=== PATIENT | female | born 1985 | race Caucasian/White ===

== ENCOUNTER 2017-07-27 09:12 | Emergency (ER) | payer OTHER, MEDICAID, SELFPAY ==
[2017-07-27] VITALS (7 sets, daily range): BP systolic 93–142; BP diastolic 59–96; PULSE 57–94; RESP 16–20; TEMP 36.7–36.8; O2SAT 94–99
--- NOTE | 2017-07-27 11:06 | DI.RAD.S_ITS ---
PROCEDURE: XR CHEST 2V INDICATIONS: 31 year-old female with cough. TECHNIQUE: 2 views of the chest were acquired. COMPARISON: [facility], , ABDOMEN ACUTE SERIES, 03/03/2017, 17:35. [facility], , CHEST 1 VIEW, 11/27/2016, 21:27. [facility], , CHEST 2 VIEW, 09/19/2016, 15:38. FINDINGS: Surgical changes and devices: Left chest wall dual chamber pacemaker is again noted. Lungs and pleura: No pleural effusions or pneumothorax. Lungs are clear. Lung volumes are decreased. Mediastinum: Mediastinal contours are normal. Heart size is normal. Bones and chest wall: No suspicious bony abnormalities. Soft tissues appear unremarkable. IMPRESSION: Decreased lung volumes, without acute cardiopulmonary disease. Dictated by: Pierce Woods M.D. on 07/27/2017 at 11:18 Approved by: Pierce Woods M.D. on 07/27/2017 at 11:18
[2017-07-27 11:47] LABS: Add Manual Diff / Slide Review NO; Basophils Percent Auto 0.4 % (0-2); Eosinophils Percent Auto 5.7 % (2-4); Hemoglobin 13.1 g/dL (12.0-16.0); Lymphocytes Percent Auto 27.4 % (25-40); Mean Corpuscular HGB Conc 34.4 % (30-36); Mean Corpuscular Hemoglobin 29.2 PG (26-34); Monocytes Percent Auto 4.8 % (3-14); Neutrophils Absolute Auto 6700 /uL (3000-5900); Neutrophils Percent Auto 61.7 % (50-75); Platelet Count 400 X10^3/uL (150-400); Red Blood Cell Count 4.47 X10^6/uL (4.0-5.2); Red Cell Distribution Width 12.9 % (11.6-14.8); White Blood Cell Count 10.9 X10^3/uL (4.5-11.0)
[2017-07-27 12:08] LABS: Troponin I < 0.012 ng/mL (0.01-0.034)
[2017-07-27 12:10] LABS: Procalcitonin < 0.05 ng/mL (<0.5)
[2017-07-27 12:19] LABS: B Type Natriuretic Peptide 49.5 (<100)
--- NOTE | 2017-07-27 12:38 | ED_ITS ---
HPI - URI/Sore Throat General Chief Complaint: Upper Respiratory Symptoms Stated Complaint: PT STATES BRONCHITIS, FEVER, CHILLS Time Seen by Provider: 07/27/17 09:40 History of Present Illness HPI Narrative: HPI 31-year-old obese female with CHF, ischemic cardiomyopathy and a pacemaker resents for evaluation of a course wet cough of 7-10 days duration with accompanying subjective fevers and chills. Notes 10 pounds weight gain over the last week. M/S/F/SocHx notable for: please see HPI; remainder reviewed with patient and in chart. ROS: Negative constitutional, eye, cardiovascular, pulmonary, GI, , MSK, skin , neurologic, psychiatric, endocrine unless noted in the HPI. Exam Gen: Pleasant, non-toxic appearing, resting comfortably. HEENT: NC, AT, PEERL, EOMI. Resp: Clear to auscultation bilaterally, normal work of breathing, no accessory muscle usage. Card: Regular rate and rhythm with no murmurs, rubs, or gallops, extremities warm and well perfused. Legs without edema. GI: Non-tender to palpation throughout all quadrants, no focal tenderness at McBurney's point, negative Justin's sign, non-distended, no rebound or guarding. : No suprapubic tenderness to palpation. MSK: No visible deformities, strength and tone without visually appreciable deficit. Skin: Normal color with no visible lesions. Neuro: AO x 3, no facial asymmetry, vision and hearing WNL. Psych: Mood and affect appropriate. Labs / Imaging: EKG: atrially paced at 61 bpm, no ST segment elevations or depressions, no LBBB. WBC 10.9, hemoglobin 13.1, troponin < 0.012, Procalcitonin < 0.05 CXR: no acute cardiopulmonary disease process. MDM Previous chart, nursing note, labs, imaging, and vitals reviewed. A: 31-year-old obese female with CHF, ischemic cardiomyopathy and a pacemaker resents for evaluation of a course wet cough of 7-10 days duration with accompanying subjective fevers and chills. DDx & Evaluation: imaging and exam without evidence of heart failure, no evidence of pneumonia by imaging, history, and labs, doubt ACS, pericarditis, myocarditis, pericardial, pleural effusion based upon the chest x-ray, EKG ( although interpretations limited to to the atrial pacing), and a negative troponin. Suspect a viral etiology for the patient's cough, this is tentative at the present time, however the patient remains well compensated and vitals are within acceptable limits. Patient is appropriate for further outpatient management as appropriate. Impression: cough. (please reference below for remainder of encounter information) Related Data Home Medications Medication Instructions Recorded Confirmed albuterol sulfate [ProAir HFA] 2 puff INHALATION Q4H PRN 07/27/17 07/27/17 beclomethasone dipropionate [Qvar] 1 puff INHALATION BID 07/27/17 07/27/17 bumetanide 1 mg PO QDAY PRN 07/27/17 07/27/17 cetirizine 10 mg PO DAILY 07/27/17 07/27/17 cholecalciferol (vitamin D3) 5,000 unit PO DAILY 07/27/17 07/27/17 [Vitamin D3] digoxin [Digitek] 125 mcg PO QDAY 07/27/17 07/27/17 diltiazem HCl 30 mg PO TID PRN 07/27/17 07/27/17 fluticasone furoate 1 spray INTRANASAL BID 07/27/17 07/27/17 lacosamide [Vimpat] 50 mg PO BID 07/27/17 07/27/17 levetiracetam 3 tab PO BID 07/27/17 07/27/17 montelukast 10 mg PO QDAY 07/27/17 07/27/17 ondansetron 4 mg PO Q6H PRN 07/27/17 07/27/17 potassium chloride 4 tab PO QDAY 07/27/17 07/27/17 sertraline 100 mg PO QDAY 07/27/17 07/27/17 torsemide 40 mg PO QDAY 07/27/17 07/27/17 Allergies Allergy/AdvReac Type Severity Reaction Status Date / Time hydrocodone [HYDROCODONE] Allergy Severe HIVES Unverified 06/29/17 12:14 adhesive tape Allergy Intermediate Verified 07/27/17 10:28 latex Allergy Intermediate Verified 07/27/17 10:27 levofloxacin [LEVOFLOXACIN] AdvReac Mild STOMACH Unverified 06/29/17 12:14 ISSUES miracle liam plant food Allergy anaphylaxis Uncoded 07/27/17 10:29 with contact MDM - URI/Sore Throat Lab Data Result diagrams: 07/27/17 11:35 Lab Results 07/27/17 07/27/17 07/27/17 Range/Units 11:35 11:35 11:35 WBC 10.9 (4.5-11.0) X10^3/uL RBC 4.47 (4.0-5.2) X10^6/uL Hgb 13.1 (12.0-16.0) g/dL Hct 38.0 (36-46) % MCV 85.0 (80-100) fL MCH 29.2 (26-34) PG MCHC 34.4 (30-36) % RDW 12.9 (11.6-14.8) % Plt Count 400 (150-400) X10^3/uL Neut % (Auto) 61.7 (50-75) % Lymph % (Auto) 27.4 (25-40) % [place] % (Auto) 4.8 (3-14) % Eos % (Auto) 5.7 H (2-4) % Baso % (Auto) 0.4 (0-2) % Neut # (Auto) 6700 H (8470-4724) /uL Troponin I < 0.012 (0.01-0.034) ng/mL B-Natriuretic Peptide 49.5 (<100) Procalcitonin < 0.05 (<0.5) ng/mL Discharge Plan Departure Prescriptions: No Action torsemide 20 mg tablet 40 mg PO QDAY RF: 0 cetirizine 10 mg Tablet 10 mg PO DAILY RF: 0 levetiracetam 500 mg tablet 3 tab PO BID RF: 0 sertraline 100 mg tablet 100 mg PO QDAY RF: 0 potassium chloride 10 mEq tablet extended release 4 tab PO QDAY RF: 0 beclomethasone dipropionate [Qvar] 80 mcg/actuation Aerosol 1 puff INHALATION BID RF: 0 bumetanide 1 mg tablet 1 mg PO QDAY PRN (Reason: edema) RF: 0 montelukast 10 mg tablet 10 mg PO QDAY RF: 0 digoxin [Digitek] 125 mcg tablet 125 mcg PO QDAY RF: 0 albuterol sulfate [ProAir HFA] 90 mcg/actuation Hfa Aerosol Inhaler 2 puff Inhalation Q4H PRN (Reason: Shortness Of Breath) RF: 0 diltiazem HCl 30 mg Tablet 30 mg PO TID PRN (Reason: Angina) RF: 0 ondansetron 4 mg tablet,disintegrating 4 mg PO Q6H PRN (Reason: Nausea) RF: 0 fluticasone furoate 27.5 mcg/actuation [place],Suspension 1 spray INTRANASAL BID RF: 0 lacosamide [Vimpat] 50 mg tablet 50 mg PO BID RF: 0 cholecalciferol (vitamin D3) [Vitamin D3] 5,000 unit Tablet 5,000 unit PO DAILY RF: 0
[2017-07-27 14:18] LABS: BUN Creatinine Ratio 22.9 (6-22); Calcium 9.1 mg/dL (8.4-10.2); Estimated Glomerular Filt Rate > 60.0 mL/min (>60); Glucose 109 mg/dL (70-100); HEMOLYSIS < 15 (0-50); Potassium 3.5 mmol/L (3.4-5.1); Sodium 141 mmol/L (137-145)
== END 2017-07-27 15:40 | disposition home or self-care (01) ==
PROVIDERS: Emergency Provider Emergency Medicine
DX: R05 Cough (principal)
CPT/HCPCS: 36591; 71046; 80048; 83880; 84145; 84484; 85025; 93005; 99283; 99285

== ENCOUNTER 2018-08-01 18:17 | Emergency (ER) | payer OTHER, MEDICAID, SELFPAY ==
[2018-08-01 18:22] VITALS: BP 151/102; PULSE 83; RESP 16; TEMP 37; O2SAT 99
[2018-08-01 19:41] LABS: INR 1.1 (0.9-1.3); Prothrombin Time 12.1 SECONDS (10.1-12.7)
[2018-08-01] MEDS: ONDANSETRON 4 MG/2 ML INJ IV (19:43)
[2018-08-01 19:44] LABS: PTT Partial Thromboplastin Tim 32 SECONDS (26.4-36.2)
[2018-08-01 19:45] LABS: Alanine Aminotransferase 26 IU/L (9-52); Albumin 4.9 g/dL (3.5-5.0); Albumin Globulin Ratio 1.3 (1.0-2.8); Alkaline Phosphatase 133 U/L (38-126); Aspartate Aminotransferase 28 IU/L (14-36); Bilirubin Total 0.7 mg/dL (0.2-1.3); Globulin 3.9 g/dL (1.7-4.1); Lipase 29 U/L (23-300); Total Protein 8.8 g/dL (6.3-8.2)
[2018-08-01 19:47] LABS: Add Manual Diff / Slide Review NO; Basophils Absolute Auto 100 /uL (0-100); Basophils Percent Auto 0.7 % (0-2); Eosinophils Absolute Auto 100 /uL (0-450); Eosinophils Percent Auto 0.5 % (2-4); Hematocrit 43.4 % (36-46); Hemoglobin 14.8 g/dL (12.0-16.0); Lymphocytes Absolute Auto 2900 /uL (1100-4500); Lymphocytes Percent Auto 20.6 % (25-40); Mean Corpuscular HGB Conc 34.1 % (30-36); Mean Corpuscular Hemoglobin 28.8 PG (26-34); Mean Corpuscular Volume 84.5 fL (80-100); Monocytes Absolute Auto 1000 /uL (0-900); Neutrophils Absolute Auto 10100 /uL (1500-7000); Neutrophils Percent Auto 71.2 % (50-75); Platelet Count 401 X10^3/uL (150-400); Red Blood Cell Count 5.14 X10^6/uL (4.0-5.2); Red Cell Distribution Width 12.9 % (11.6-14.8); White Blood Cell Count 14.2 X10^3/uL (4.5-11.0)
[2018-08-01 19:49] VITALS: BP 147/105; PULSE 68; RESP 13; O2SAT 98
[2018-08-01 20:00] VITALS: BP 130/63; PULSE 69; RESP 19; O2SAT 99
[2018-08-01 20:02] LABS: BUN Creatinine Ratio 25.7 (6-22); Blood Urea Nitrogen 18 mg/dL (7-17); Calcium 10.1 mg/dL (8.4-10.2); Carbon Dioxide 33 mmol/L (22-32); Chloride 90 mmol/L (98-107); Estimated Glomerular Filt Rate > 60.0 mL/min (>60); Glucose 121 mg/dL (70-100); HEMOLYSIS 36 (0-50); Sodium 137 mmol/L (137-145)
--- NOTE | 2018-08-01 20:17 | ED.NAVMDI ---
HPI - Nausea/Vomiting/Diarrhea General Chief complaint: Nausea/Vomiting/Diarrhea Stated complaint: LIGHT HEADNESS NAUSEA NOT PEEING MUCH Time Seen by Provider: 08/01/18 20:17 Source: patient Mode of arrival: ambulatory Limitations: no limitations History of Present Illness HPI Narrative: The patient has hypertension with cardiomyopathy and CHF. She has received a pacemaker. She has been changing doses of diuretics lately, controlling the CHF. She has had adequate urine output. She is having no chest pain. She does has dyspnea with exertion. She has no orthopnea. She has had a history of kidney infections. For the last week she has had left flank pain. She denies hematuria or dysuria. Today she developed nausea and vomiting. She has had no associated diarrhea. She has no associated fever or chills. She is feeling ill with weakness and fatigue.. She cannot give a urine sample. Related Data Home Medications Medication Instructions Recorded Confirmed albuterol sulfate [ProAir HFA] 2 puff INHALATION Q4H PRN 07/27/17 08/01/18 beclomethasone dipropionate [Qvar] 1 puff INHALATION BID 07/27/17 08/01/18 bumetanide 1 mg PO QDAY PRN 07/27/17 08/01/18 cetirizine 10 mg PO DAILY 07/27/17 08/01/18 cholecalciferol (vitamin D3) 5,000 unit PO DAILY 07/27/17 08/01/18 [Vitamin D3] digoxin [Digitek] 125 mcg PO QDAY 07/27/17 08/01/18 diltiazem HCl 30 mg PO TID PRN 07/27/17 08/01/18 fluticasone furoate 1 spray INTRANASAL BID 07/27/17 08/01/18 lacosamide [Vimpat] 150 mg PO BID 07/27/17 08/01/18 levetiracetam 3 tab PO BID 07/27/17 08/01/18 montelukast 10 mg PO QDAY 07/27/17 08/01/18 ondansetron 4 mg PO Q6H PRN 07/27/17 08/01/18 potassium chloride 4 tab PO QDAY 07/27/17 08/01/18 sertraline 150 mg PO QDAY 07/27/17 08/01/18 torsemide 40 mg PO QDAY 07/27/17 08/01/18 Allergies Allergy/AdvReac Type Severity Reaction Status Date / Time hydrocodone [HYDROCODONE] Allergy Severe HIVES Verified 08/01/18 19:50 adhesive tape Allergy Intermediate Verified 08/01/18 19:50 latex Allergy Intermediate Verified 08/01/18 19:50 levofloxacin [LEVOFLOXACIN] AdvReac Mild STOMACH Verified 08/01/18 19:50 ISSUES miracle liam plant food Allergy anaphylaxis Uncoded 07/27/17 10:29 with contact Review of Systems Review of Systems ROS Unobtainable: All systems reviewed & are unremarkable except as noted in HPI and below Constitutional Denies chills, Denies fever(s), Reports lethargy and Reports weakness ENT Ears, Nose, Mouth, and Throat: Denies neck pain and Denies sore throat Cardiovascular Denies chest pain, Denies irregular heart rhythm, Denies lightheadedness, Denies palpitations, Denies dyspnea and Denies orthopnea Respiratory Denies cough, Denies dyspnea and Denies wheezing Gastrointestinal Gastrointestinal: Denies abdominal pain, Denies change in bowel habits, Denies diarrhea, Reports nausea and Reports vomiting Genitourinary Denies hematuria, Denies dysuria, Reports flank pain, Denies urinary incontinence and Denies urinary urgency Musculoskeletal Reports back pain and Denies neck pain Integumentary/Breasts Denies erythema and Denies rash Neurologic Denies confusion and Reports weakness Psychiatric Denies anxiety, Denies confusion and Denies depression Endocrine Denies palpitations Allergic/Immunologic Denies wheezing [facility] Medical History (Updated 08/02/18 @ 00:26 by Chris Petty MD) Cardiomyopathy (Acute) Congestive heart failure (Acute) Hypertension (Acute) Pacemaker (Acute) Social History (Updated 08/01/18 @ 20:31 by Chris Petty MD) Smoking Status: Never smoker alcohol intake: never Exam Initial Vital Signs Initial Vital Signs: Vital Signs Temperature 98.6 F 08/01/18 18:22 Pulse Rate 83 08/01/18 18:22 Respiratory Rate 16 08/01/18 18:22 Blood Pressure 151/102 H 08/01/18 18:22 Pulse Oximetry 99 08/01/18 18:22 Const General: cooperative and well developed Nutritional Appearance: well nourished Orientation: alert, awake, oriented x3 and not confused [facility] Head: normocephalic and atraumatic Mouth: oral mucosae normal and moist mucous membranes Throat: tonsils normal and uvula midline Eyes General: appearance normal, both eyes and all related structures Eyelids: eyelids normal Conjunctivae: conjunctivae normal Sclera: sclerae normal Pupils: PERRL EOM: EOM intact bilaterally Neck Neck: No JVD Chest Chest: normal inspection of the chest Resp Effort & Inspection: normal respiratory effort, able to speak in complete sentences, no respiratory distress and no use of accessory muscles Auscultation: clear to auscultation bilaterally, no rales, no rhonchi and no wheezes Cardio Rate: regular rate Rhythm: regular rhythm Heart Sounds: no click, no gallops, no murmurs and no rubs Pulses: normal peripheral pulses GI Inspection: non-distended Palpation: soft, no hepatosplenomegaly, No guarding, No pulsatile mass and No tender Auscultation: normal bowel sounds Back/Spine/Pelvis Back: normal to inspection and No CVA tenderness Skin General: no rashes or lesions noted and No petechiae Neuro General: alert, oriented x3, gait normal and no focal motor deficits Speech: speech normal Extrem General: full ROM, no pedal edema, no calf tenderness and other (Normal lower extremity pulses.) Psych Appearance: well kempt Mental Status: mental status grossly normal Attitude: cooperative Thought Content: normal and suicidality Judgment: judgment good Course Course Narrative: The portion that was slowly IV hydrated, Reglan was added to Zofran to help control the nausea. At the time of discharge she is hydrated. She has urine output. She is feeling better. She still has a vague left back pain. The UA shows no evidence of hematuria or pyuria. She has anti emetic medications at home. She feels well enough to go home. Orders Ordered: ED Orders 08/01/18 18:55 EKG-12 Lead Stat 08/01/18 19:25 Complete Blood Count AUTO DIFF Stat Comprehensive Metabolic Panel Stat Digoxin Stat Lipase Stat Partial Thromboplastin Time Stat Prothrombin Time INR Stat Sodium Chloride (Normal Saline 0.9%) 1,000 mls @ 150 mls/hr IV CONT BEAR Last Admin: 08/01/18 20:44 Dose: 150 mls/hr Discontinued Medications Metoclopramide HCl (Reglan) 10 mg IV NOW ONE Stop: 08/01/18 22:15 Last Admin: 08/01/18 22:16 Dose: 10 mg Ondansetron HCl (Zofran) 4 mg IV NOW ONE Stop: 08/01/18 19:37 Last Admin: 08/01/18 19:43 Dose: 4 mg Potassium Chloride (Potassium Chloride) 40 meq PO NOW ONE Stop: 08/01/18 22:00 Last Admin: 08/01/18 22:13 Dose: 40 meq Vital Signs - 8 hr 08/01/18 18:22 08/01/18 19:49 08/01/18 20:00 Temperature 98.6 F Pulse Rate 83 68 69 Respiratory Rate 16 13 19 Blood Pressure 151/102 H Blood Pressure [Right Wrist] 147/105 H 130/63 Pulse Oximetry 99 98 99 08/01/18 21:30 08/01/18 22:50 Temperature Pulse Rate 66 68 Respiratory Rate 22 18 Blood Pressure Blood Pressure [Right Wrist] 131/95 H 126/64 Pulse Oximetry 98 96 MDM - Nausea/Vomiting/Diarrhea Lab Data Result diagrams: 08/01/18 19:25 08/01/18 19:25 Lab Results 08/01/18 08/01/18 08/01/18 Range/Units 19:25 19:25 19:25 WBC 14.2 H (4.5-11.0) X10^3/uL RBC 5.14 (4.0-5.2) X10^6/uL Hgb 14.8 (12.0-16.0) g/dL Hct 43.4 (36-46) % MCV 84.5 (80-100) fL MCH 28.8 (26-34) PG MCHC 34.1 (30-36) % RDW 12.9 (11.6-14.8) % Plt Count 401 H (150-400) X10^3/uL Neut % (Auto) 71.2 (50-75) % Lymph % (Auto) 20.6 L (25-40) % [facility] % (Auto) 7.0 (3-14) % Eos % (Auto) 0.5 L (2-4) % Baso % (Auto) 0.7 (0-2) % Neut # (Auto) 72153 H (9034-1329) /uL Lymph # (Auto) 2900 (1104-9921) /uL [facility] # (Auto) 1000 H (0-900) /uL Eos # (Auto) 100 (0-450) /uL Baso # (Auto) 100 (0-100) /uL PT 12.1 (10.1-12.7) SECONDS INR 1.1 (0.9-1.3) APTT 32 (26.4-36.2) SECONDS Sodium 137 (137-145) mmol/L Potassium 3.0 L (3.4-5.1) mmol/L Chloride 90 L (98-107) mmol/L Carbon Dioxide 33 H (22-32) mmol/L BUN 18 H (7-17) mg/dL Creatinine 0.70 (0.52-1.04) mg/dL Estimated GFR > 60.0 (>60) mL/min BUN/Creatinine Ratio 25.7 H (6-22) Glucose 121 H (70-100) mg/dL Calcium 10.1 (8.4-10.2) mg/dL Total Bilirubin 0.7 (0.2-1.3) mg/dL AST 28 (14-36) IU/L ALT 26 (9-52) IU/L Alkaline Phosphatase 133 H (38-126) U/L Total Protein 8.8 H (6.3-8.2) g/dL Albumin 4.9 (3.5-5.0) g/dL Globulin 3.9 (1.7-4.1) g/dL Albumin/Globulin Ratio 1.3 (1.0-2.8) Lipase 29 (23-300) U/L Digoxin (0.8-2.0) ng/mL 08/01/18 Range/Units 19:25 WBC (4.5-11.0) X10^3/uL RBC (4.0-5.2) X10^6/uL Hgb (12.0-16.0) g/dL Hct (36-46) % MCV (80-100) fL MCH (26-34) PG MCHC (30-36) % RDW (11.6-14.8) % Plt Count (150-400) X10^3/uL Neut % (Auto) (50-75) % Lymph % (Auto) (25-40) % [facility] % (Auto) (3-14) % Eos % (Auto) (2-4) % Baso % (Auto) (0-2) % Neut # (Auto) (6931-1449) /uL Lymph # (Auto) (1200-2122) /uL [facility] # (Auto) (0-900) /uL Eos # (Auto) (0-450) /uL Baso # (Auto) (0-100) /uL PT (10.1-12.7) SECONDS INR (0.9-1.3) APTT (26.4-36.2) SECONDS Sodium (137-145) mmol/L Potassium (3.4-5.1) mmol/L Chloride (98-107) mmol/L Carbon Dioxide (22-32) mmol/L BUN (7-17) mg/dL Creatinine (0.52-1.04) mg/dL Estimated GFR (>60) mL/min BUN/Creatinine Ratio (6-22) Glucose (70-100) mg/dL Calcium (8.4-10.2) mg/dL Total Bilirubin (0.2-1.3) mg/dL AST (14-36) IU/L ALT (9-52) IU/L Alkaline Phosphatase (38-126) U/L Total Protein (6.3-8.2) g/dL Albumin (3.5-5.0) g/dL Globulin (1.7-4.1) g/dL Albumin/Globulin Ratio (1.0-2.8) Lipase (23-300) U/L Digoxin 0.4 L (0.8-2.0) ng/mL Point of Care Testing Test Results Negative Urine Dip Bedside Urine Glucose Negative Bedside Urine Bilirubin - Negative Bedside Urine Ketone - Negative Urine Specific [place] 1.025 Bedside Urine Occult Blood +/- Bedside Urine pH 5.5 Bedside Urine Protein +/- 15 Bedside Urine Urobilinogen +/- 1mg Bedside Urine Nitrite - Negative Bedside Urine Leukocytes +/- 15 Esterase ECG Data Attestation: I personally reviewed and interpreted this ECG as follows: (Normal sinus rhythm rate 71 beats per minute. Normal intervals. Heart voltage criteria for LVH. Minimal ST depression, nonspecific ST T wave changes. No ectopy. No acute findings.) Discharge Plan Departure Patient Disposition: Home Clinical Impression: Abdominal pain with vomiting Instructions: DI for Viral Gastroenteritis -- Adult Activity Restrictions/Additional Instructions: I suspect her symptoms are related to a viral infection. I would expect the symptoms to clear within the next day or so. Be sure you drinking plenty of fluids and stay well hydrated. Usual medications as prescribed Return the ER for persistent vomiting, increasing pain or fever. Prescriptions: No Action torsemide 20 mg tablet 40 mg PO QDAY RF: 0 cetirizine 10 mg Tablet 10 mg PO DAILY RF: 0 levetiracetam 500 mg tablet 3 tab PO BID RF: 0 sertraline 100 mg tablet 150 mg PO QDAY RF: 0 potassium chloride 10 mEq tablet extended release 4 tab PO QDAY RF: 0 Qvar 80 mcg/actuation Aerosol 1 puff INHALATION BID RF: 0 bumetanide 1 mg tablet 1 mg PO QDAY PRN (Reason: edema) RF: 0 montelukast 10 mg tablet 10 mg PO QDAY RF: 0 digoxin [Digitek] 125 mcg tablet 125 mcg PO QDAY RF: 0 albuterol sulfate [ProAir HFA] 90 mcg/actuation Hfa Aerosol Inhaler 2 puff Inhalation Q4H PRN (Reason: Shortness Of Breath) RF: 0 diltiazem HCl 30 mg Tablet 30 mg PO TID PRN (Reason: Angina) RF: 0 ondansetron 4 mg tablet,disintegrating 4 mg PO Q6H PRN (Reason: Nausea) RF: 0 fluticasone furoate 27.5 mcg/actuation [place],Suspension 1 spray INTRANASAL BID RF: 0 Vimpat 50 mg tablet 150 mg PO BID RF: 0 cholecalciferol (vitamin D3) [Vitamin D3] 5,000 unit Tablet 5,000 unit PO DAILY RF: 0
[2018-08-01 20:22] LABS: Digoxin 0.4 ng/mL (0.8-2.0)
[2018-08-01] MEDS: SODIUM CHLORIDE 0.9% 1,000 ML 150 ML IV (20:44)
[2018-08-01 21:30] VITALS: BP 131/95; PULSE 66; RESP 22; O2SAT 98
[2018-08-01] MEDS: POTASSIUM CHLORIDE 20 MEQ/15 ML UDC 40 MEQ PO (22:13)
[2018-08-01] MEDS: METOCLOPRAMIDE 10 MG/2 ML INJ IV (22:16)
[2018-08-01 22:50] VITALS: BP 126/64; PULSE 68; RESP 18; O2SAT 96
[2018-08-02 00:35] VITALS: BP 122/66; PULSE 84; RESP 14; O2SAT 99
== END 2018-08-02 00:35 | disposition home or self-care (01) ==
PROVIDERS: Emergency Provider Emergency Medicine
DX: R42 Dizziness and giddiness (principal); R11.2 Nausea with vomiting, unspecified; R10.84 Generalized abdominal pain; R53.1 Weakness; Z95.0 Presence of cardiac pacemaker
CPT/HCPCS: 36591; 80053; 80162; 81003; 81025; 83690; 85025; 85610; 85730; 93005; 93010; 96361; 96374; 96375; 99284; J2405; J2765

== ENCOUNTER 2018-09-04 15:09 | Observation (INO) | payer OTHER, MEDICAID, SELFPAY ==
[2018-09-04] VITALS (9 sets, daily range): BP systolic 114–155; BP diastolic 57–140; PULSE 62–85; RESP 14–24; TEMP 36.7–36.8; O2SAT 95–100; BMI 48.2
--- NOTE | 2018-09-04 15:21 | DI.RAD.S_ITS ---
PROCEDURE: XR CHEST 2V INDICATIONS: shortness of breath TECHNIQUE: 2 views of the chest were acquired. [facility] 8[facility]. FINDINGS: Surgical changes and devices: Pacemaker. Lungs and pleura: Lungs are clear. No pleural effusions or pneumothorax. Mediastinum: Mediastinal contours are normal. Heart size is normal. Bones and chest wall: No suspicious bony abnormalities. Soft tissues appear unremarkable. IMPRESSION: No acute pulmonary process. Dictated by: Steffany Amador M.D. on 09/04/2018 at 15:53 Approved by: Steffany Amador M.D. on 09/04/2018 at 15:54
--- NOTE | 2018-09-04 15:38 | ED.SOB ---
HPI - SOB/Dyspnea General Chief Complaint: Shortness of Breath/Dyspnea Stated Complaint: WATER RETENTION SOB Time Seen by Provider: 09/04/18 15:25 Source: patient Mode of arrival: ambulatory Limitations: no limitations History of Present Illness 33-year-old female who arrives stating she has got a diagnosis of diastolic heart failure. She also has a pacemaker in place. She is not currently paced. She states that over the past month she has had a 30 lb weight gain. Last Tuesday she saw her retrofit installer Dr Aponte with the [facility] in [place] who increased her Toeawmide 20 mg once a day to 20 mg 2 times a day. She also had her Bumex increased from 1 mg a day to 1 mg 2 times a day. She states that she continues to have lower extremity swelling. She states she cannot lay flat because she become short of breath. She also states she cannot walk far distances because of the shortness of breath. She states that she has never had a cardiac catheterization. Has an echo scheduled for the beginning of next month. Related Data Home Medications Medication Instructions Recorded Confirmed albuterol sulfate [ProAir HFA] 2 puff INHALATION Q4H PRN 07/27/17 09/04/18 bumetanide 1 mg PO DAILY 07/27/17 09/04/18 cetirizine 10 mg PO DAILY 07/27/17 09/04/18 cholecalciferol (vitamin D3) 5,000 unit PO DAILY 07/27/17 09/04/18 [Vitamin D3] digoxin [Digitek] 125 mcg PO DAILY 07/27/17 09/04/18 fluticasone furoate 1 - 2 spray INTRANASAL BID 07/27/17 09/04/18 levetiracetam 1,000 mg PO BID 07/27/17 09/04/18 montelukast 10 mg PO DAILY 07/27/17 09/04/18 ondansetron 4 mg PO Q8H PRN 07/27/17 09/04/18 sertraline 150 mg PO DAILY 07/27/17 09/04/18 torsemide 40 mg PO DAILY 07/27/17 09/04/18 beclomethasone dipropionate [Qvar 1 puff INHALATION BID 09/04/18 09/04/18 RediHaler] chlorthalidone 12.5 mg PO DAILY 09/04/18 09/04/18 diltiazem HCl 60 mg PO TID PRN 09/04/18 09/04/18 lacosamide [Vimpat] 200 mg PO BID 09/04/18 09/04/18 potassium chloride 40 meq PO DAILY 09/04/18 09/04/18 Allergies Allergy/AdvReac Type Severity Reaction Status Date / Time hydrocodone [HYDROCODONE] Allergy Severe HIVES Verified 09/04/18 15:18 adhesive tape Allergy Intermediate Verified 09/04/18 15:18 latex Allergy Intermediate Verified 09/04/18 15:18 levofloxacin [LEVOFLOXACIN] AdvReac Mild STOMACH Verified 09/04/18 15:18 ISSUES miracle liam plant food Allergy anaphylaxis Uncoded 09/04/18 15:18 with contact Review of Systems Constitutional Denies fever(s) and Denies headache(s) ENT Ears, Nose, Mouth, and Throat: Denies headache(s) Cardiovascular Denies chest pain, Reports pedal edema, Reports edema, Denies palpitations, Reports dyspnea and Reports dyspnea on exertion Respiratory Reports dyspnea and Reports dyspnea on exertion Gastrointestinal Gastrointestinal: Denies abdominal pain, Denies nausea and Denies vomiting Musculoskeletal Denies myalgias and Denies arthralgias Integumentary/Breasts Denies rash Neurologic Denies behavioral changes and Denies headache(s) Psychiatric Denies behavioral changes Endocrine Denies palpitations Hematologic/Lymphatic Denies easy bleeding and Denies easy bruising [facility] Medical History Congestive heart failure (Acute) Cardiomyopathy (Acute) Hypertension (Acute) Pacemaker (Acute) Social History Smoking Status: Never smoker alcohol intake: never Exam Initial Vital Signs Initial Vital Signs: Vital Signs Temperature 98.0 F 09/04/18 15:18 Pulse Rate 85 09/04/18 15:18 Respiratory Rate 20 09/04/18 15:18 Blood Pressure 128/71 09/04/18 15:18 Pulse Oximetry 100 09/04/18 15:18 Const General: comfortable and well developed Orientation: alert and awake HENMT Head: normal to inspection and normocephalic Resp Effort & Inspection: normal respiratory effort Auscultation: clear to auscultation bilaterally Cardio Rate: regular rate Rhythm: regular rhythm Pulses: radial pulses present GI Inspection: non-distended Palpation: soft Skin Lesions: no lesions Rashes: no rashes Neuro General: alert and awake Cognition: normal cognition Speech: speech normal Extrem General: edema Psych Appearance: grossly normal and well kempt Course Orders Ordered: ED Orders 09/04/18 15:21 XR chest 2V Stat EKG-12 Lead Stat 09/04/18 15:31 B Type Natriuretic Peptide Stat Complete Blood Count AUTO DIFF Stat Comprehensive Metabolic Panel Stat Lactate (Lactic Acid) Stat Magnesium Stat Procalcitonin Stat Troponin I Stat Potassium Chloride 40 meq/ (Sodium Chloride) 520 mls @ 130 mls/hr IV NOW ONE Stop: 09/04/18 22:13 Discontinued Medications Furosemide (Lasix) 60 mg IV NOW ONE Stop: 09/04/18 15:39 Last Admin: 09/04/18 15:54 Dose: 60 mg Vital Signs - 8 hr 09/04/18 15:18 09/04/18 15:33 09/04/18 16:01 Temperature 98.0 F Pulse Rate 85 70 69 Respiratory Rate 20 24 14 Blood Pressure 128/71 Blood Pressure [Left Arm] 144/57 H 114/57 L Blood Pressure [Left Wrist] Pulse Oximetry 100 100 100 09/04/18 16:39 09/04/18 17:21 09/04/18 17:30 Temperature Pulse Rate 74 66 Respiratory Rate 21 17 21 Blood Pressure Blood Pressure [Left Arm] Blood Pressure [Left Wrist] 119/65 134/91 H 134/91 H Pulse Oximetry 100 95 100 09/04/18 18:15 Temperature Pulse Rate 69 Respiratory Rate 21 Blood Pressure Blood Pressure [Left Arm] Blood Pressure [Left Wrist] 155/140 H Pulse Oximetry 100 MDM - SOB/Dyspnea Lab Data Attestation: I reviewed the patient's lab results. Result diagrams: 09/04/18 15:31 09/04/18 15:31 Lab Results 09/04/18 09/04/18 09/04/18 Range/Units 15:31 15:31 15:31 WBC 11.1 H (4.5-11.0) X10^3/uL RBC 4.30 (4.0-5.2) X10^6/uL Hgb 12.3 (12.0-16.0) g/dL Hct 36.7 (36-46) % MCV 85.4 (80-100) fL MCH 28.5 (26-34) PG MCHC 33.4 (30-36) % RDW 13.0 (11.6-14.8) % Plt Count 393 (150-400) X10^3/uL Neut % (Auto) 66.7 (50-75) % Lymph % (Auto) 24.0 L (25-40) % Cobb % (Auto) 6.9 (3-14) % Eos % (Auto) 2.0 (2-4) % Baso % (Auto) 0.4 (0-2) % Neut # (Auto) 7400 H (9785-6719) /uL Lymph # (Auto) 2700 (5678-9682) /uL Cobb # (Auto) 800 (0-900) /uL Eos # (Auto) 200 (0-450) /uL Baso # (Auto) 0 (0-100) /uL Sodium 141 (137-145) mmol/L Potassium 3.0 L (3.4-5.1) mmol/L Chloride 103 (98-107) mmol/L Carbon Dioxide 28 (22-32) mmol/L BUN 17 (7-17) mg/dL Creatinine 0.70 (0.52-1.04) mg/dL Estimated GFR > 60.0 (>60) mL/min BUN/Creatinine Ratio 24.3 H (6-22) Glucose 104 H (70-100) mg/dL Lactate 1.5 (0.7-2.1) mmol/L Calcium 9.4 (8.4-10.2) mg/dL Total Bilirubin 0.5 (0.2-1.3) mg/dL AST 22 (14-36) IU/L ALT 26 (9-52) IU/L Alkaline Phosphatase 108 (38-126) U/L Troponin I (0.01-0.034) ng/mL B-Natriuretic Peptide (<100) Total Protein 7.3 (6.3-8.2) g/dL Albumin 4.2 (3.5-5.0) g/dL Globulin 3.1 (1.7-4.1) g/dL Albumin/Globulin Ratio 1.4 (1.0-2.8) 09/04/18 09/04/18 Range/Units 15:31 15:31 WBC (4.5-11.0) X10^3/uL RBC (4.0-5.2) X10^6/uL Hgb (12.0-16.0) g/dL Hct (36-46) % MCV (80-100) fL MCH (26-34) PG MCHC (30-36) % RDW (11.6-14.8) % Plt Count (150-400) X10^3/uL Neut % (Auto) (50-75) % Lymph % (Auto) (25-40) % Cobb % (Auto) (3-14) % Eos % (Auto) (2-4) % Baso % (Auto) (0-2) % Neut # (Auto) (8593-1915) /uL Lymph # (Auto) (0189-4181) /uL Cobb # (Auto) (0-900) /uL Eos # (Auto) (0-450) /uL Baso # (Auto) (0-100) /uL Sodium (137-145) mmol/L Potassium (3.4-5.1) mmol/L Chloride (98-107) mmol/L Carbon Dioxide (22-32) mmol/L BUN (7-17) mg/dL Creatinine (0.52-1.04) mg/dL Estimated GFR (>60) mL/min BUN/Creatinine Ratio (6-22) Glucose (70-100) mg/dL Lactate (0.7-2.1) mmol/L Calcium (8.4-10.2) mg/dL Total Bilirubin (0.2-1.3) mg/dL AST (14-36) IU/L ALT (9-52) IU/L Alkaline Phosphatase (38-126) U/L Troponin I < 0.012 (0.01-0.034) ng/mL B-Natriuretic Peptide 145 H (<100) Total Protein (6.3-8.2) g/dL Albumin (3.5-5.0) g/dL Globulin (1.7-4.1) g/dL Albumin/Globulin Ratio (1.0-2.8) Imaging Data Chest x-ray: Radiologist's impression: [address] [address] XRay Report Signed Patient: Little Aparicio [facility]#: [id number] : 1985Acct:[id number] Age/Sex: 33 / FDate of Service: 09/04/18 Loc: ED Accession Number: [id number] Procedure: XR chest 2V Ordering Provider: Ilya Menendez D.O. PROCEDURE: XR CHEST 2V INDICATIONS: shortness of breath TECHNIQUE: 2 views of the chest were acquired. COMPARISON: [facility], , XR CHEST 2V, 07/27/2017, 10:50. [facility], CR, CHEST 2VW, 08/01/2017, 8:53 AM. FINDINGS: Surgical changes and devices: Pacemaker. Lungs and pleura: Lungs are clear. No pleural effusions or pneumothorax. Mediastinum: Mediastinal contours are normal. Heart size is normal. Bones and chest wall: No suspicious bony abnormalities. Soft tissues appear unremarkable. IMPRESSION: No acute pulmonary process. Dictated by: Steffany Amador M.D. on 09/04/2018 at 15:53 Approved by: Steffany Amador M.D. on 09/04/2018 at 15:54 ECG Data Attestation: I personally reviewed and interpreted this ECG as follows: Prior ECG tracings: not available for review Interpretation: Sinus rhythm First degree AV block Ventricular rate 83 P.r.n. oval to 112 milliseconds Normal axis Normal QRS Normal QTC No ST T wave changes MDM Narrative Medical decision making narrative: Patient is tachypneic however not hypoxic. She does have lower extremity swelling. I did discuss the case with [facility] cardiology who stated that her last echocardiogram was in 2017. And at that time she had a normal ejection fraction. He recommended admitting the patient for IV diuresis. I did discuss the case with Dr. Gayle with Internal Medicine who will admit the patient for further evaluation and treatment. Discussed admission with the patient. She expressed understanding and agreement plan. Some labs were pending at time of admission. These were ordered per recommendation of the admitting provider. Patient also received Lasix here in the ER. Potassium is also started here in the emergency department. Discharge Plan Departure Patient Disposition: Admitted As Inpatient Clinical Impression: Breath shortness CHF (congestive heart failure) Qualifiers: Heart failure type: unspecified Heart failure chronicity: unspecified Qualified Code(s): I50.9 - Heart failure, unspecified Fluid overload Qualifiers: Hypervolemia type: unspecified Qualified Code(s): E87.70 - Fluid overload, unspecified Admit Date/Time: 09/04/18 18:22 Admit Provider: Lynnette Gayle
[2018-09-04 15:45] LABS: Add Manual Diff / Slide Review NO; Basophils Absolute Auto 0 /uL (0-100); Basophils Percent Auto 0.4 % (0-2); Eosinophils Absolute Auto 200 /uL (0-450); Hematocrit 36.7 % (36-46); Hemoglobin 12.3 g/dL (12.0-16.0); Lymphocytes Absolute Auto 2700 /uL (1100-4500); Mean Corpuscular HGB Conc 33.4 % (30-36); Mean Corpuscular Hemoglobin 28.5 PG (26-34); Mean Corpuscular Volume 85.4 fL (80-100); Monocytes Absolute Auto 800 /uL (0-900); Monocytes Percent Auto 6.9 % (3-14); Neutrophils Absolute Auto 7400 /uL (1500-7000); Neutrophils Percent Auto 66.7 % (50-75); Platelet Count 393 X10^3/uL (150-400); White Blood Cell Count 11.1 X10^3/uL (4.5-11.0)
[2018-09-04] MEDS: FUROSEMIDE 100 MG/10 ML VIAL 60 MG IV (15:54)
[2018-09-04 15:57] LABS: Lactate (Lactic Acid) 1.5 mmol/L (0.7-2.1)
[2018-09-04 15:58] LABS: Alanine Aminotransferase 26 IU/L (9-52); Albumin 4.2 g/dL (3.5-5.0); Albumin Globulin Ratio 1.4 (1.0-2.8); Alkaline Phosphatase 108 U/L (38-126); Aspartate Aminotransferase 22 IU/L (14-36); BUN Creatinine Ratio 24.3 (6-22); Bilirubin Total 0.5 mg/dL (0.2-1.3); Blood Urea Nitrogen 17 mg/dL (7-17); Calcium 9.4 mg/dL (8.4-10.2); Carbon Dioxide 28 mmol/L (22-32); Chloride 103 mmol/L (98-107); Estimated Glomerular Filt Rate > 60.0 mL/min (>60); Globulin 3.1 g/dL (1.7-4.1); Glucose 104 mg/dL (70-100); HEMOLYSIS < 15 (0-50); Sodium 141 mmol/L (137-145); Total Protein 7.3 g/dL (6.3-8.2)
[2018-09-04 18:08] LABS: Troponin I < 0.012 ng/mL (0.01-0.034)
[2018-09-04 18:16] LABS: B Type Natriuretic Peptide 145 (<100)
[2018-09-04 18:53] LABS: Magnesium 2.1 mg/dL (1.6-2.3)
[2018-09-04 19:19] LABS: Procalcitonin < 0.05 ng/mL (<0.5)
[2018-09-04] MEDS: POTASSIUM CHLORIDE 40 MEQ in SODIUM CHLORIDE 0.9% 500 ML 130 ML IV (19:24)
--- NOTE | 2018-09-04 22:30 | PC.NURSE ---
Admit note: Little admitted to acute care room 217, she is awake, oriented x3 and to situation. She reports flu-like symptoms for the last month and having problems with nausea/vomiting at home. Reports lack of appetite, recent weight loss but then in the last few days significant weight gain. She is admitted for SOB/CHF. She reports SOB better, no SOB observed, denies chest pain. RA oxygen 100% Voided x 1 in BR toilet. Telemetry rhythm is sinus beth/sinus, with HR 58-68 bpm. Other vitals stable. She reports history of seizure disorder, stating last seizure was a week & a half ago. Seizure pads placed on rails for safety. Waiting for hospitalist to see patient, Annabel BLANCHARD notified that patient still needs to take PM doses of seizure meds Levatiracetum & Vimpat tonight, as well as her allergy meds. Copy of med list in chart. sheet metal roofer Sophie said we do not have Vimpat in pharmacy. I notified Little and she called her Dad who is bringing the medication here tonight. Fall precautions in place. Patient told me she lives with her parents & her 11 year old child, social service consult entered in chart.
--- NOTE | 2018-09-04 23:46 | P.HP_ITS ---
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 Follows w/ the following physicians: Dr. Aponte and Dr Butt for cardiology in [place]. Dr. Schuyler Zimmerman for epilepsy at [facility] [place]. Dr. Anna Hinkle is her PCP. Patient presented to the ED on 09/04/2018 out of concern for fluid retention. Symptoms initially noted 1 week ago by report. Associated symptoms include worsening peripheral and abdominal edema, orthopnea, PND, exertional dyspnea, nonproductive cough. Reports increase from baseline weight of 307# to 332# on day of admission. Able to ambulate approximately 20 ft before needing to rest. Additional symptoms include intermittent fevers (as high as 102 range) and occasional chills. Patient is known to have recurrent nephrolithiasis. She has had 5 isolated episodes in this year alone and total of 19 throughout her lifetime by report. She always was able to pass stones on her own and has not required surgical intervention. Patient reports a 3 for week history of intermittent chills and fever as high as 102F. Known to have h/o recurrent UTIs and pyelonephritis. Reports worsening fatigue, malaise, and myalgia. Reports experiencing more frequent palpitations. No known thyroid disorders. Exper iencing mild substernal/epigastric discomfort, which in notes to have pressure- like quality. There is no radiation to the back, extremities, neck, or jaw. Dizziness and unsteady gait with position change. Denies syncopal events. No prior history of PE or DVT. Patient is not on hormone therapy. Her lifestyle and degree obesity limits her mobility. Prior history of CATARINO, which noted to have resolved with tonsillectomy. She has a pending sleep study scheduled. Present time does not wear a CPAP. Patient is known to have underlying asthma, which has been well controlled. Denies increased need for inhalers. Denies being around ill contacts. Patient was seen by her answerer, Dr. Fadi, in the past week. Recommendation was made to increase the dose of torsemide and bumetanide to aid with diuresis. Patient reports making recommended changes, however does not feel there is improvement in her overall volume status. She does not feel that she is responding well to the diuretics. No prior history of a cardiac catheterization or valvular heart disease. Patient does have a fairly significant risk for PE or DVT, in lieu of underlying morbid obesity, decreased mobility, and underlying cardiac problems. Patient has no prior history of cerebrovascular events. However she does have a history of seizures and associated Brent's paralysis by report. Patient History Medical History (Updated 09/05/18 @ 01:15 by LO Bustillos) Congestive heart failure (Chronic) Epilepsy (Chronic) IBS (irritable bowel syndrome) (Chronic) Morbid obesity (Chronic) Nephrolithiasis (Chronic) PCOS (polycystic ovarian syndrome) (Chronic) Tachy-beth syndrome (Chronic) Cardiomyopathy (Chronic) Hypertension (Chronic) Surgical History Pacemaker (Chronic) Family History (Updated 09/05/18 @ 01:14 by LO Bustillos) Father Nephrolithiasis Social History household members: family and children Smoking Status: Never smoker alcohol intake: never Family & Social History Social History: household members family,children Prior Living Arrangements House. Patient lives with her parents and daughter. She does not drive due to history of epilepsy. Safety & Behavioral: Feels Safe in Current Yes Environment Been Physically Hurt or No Threatened By a Person Suicidal Ideation Description None Tobacco & Substance use: Smoking Status Never smoker alcohol intake never alcohol intake frequency 0-2 drinks per day Substance Use Type does not use Meds Home Medications Medication Instructions Recorded Confirmed Type albuterol sulfate [ProAir HFA] 2 puff INHALATION Q4H PRN 07/27/17 09/04/18 History bumetanide 1 mg PO DAILY 07/27/17 09/04/18 History cetirizine 10 mg PO DAILY 07/27/17 09/04/18 History cholecalciferol (vitamin D3) 5,000 unit PO DAILY 07/27/17 09/04/18 History [Vitamin D3] digoxin [Digitek] 125 mcg PO DAILY 07/27/17 09/04/18 History fluticasone furoate 1 - 2 spray INTRANASAL BID 07/27/17 09/04/18 History levetiracetam 1,000 mg PO BID 07/27/17 09/04/18 History montelukast 10 mg PO DAILY 07/27/17 09/04/18 History ondansetron 4 mg PO Q8H PRN 07/27/17 09/04/18 History sertraline 150 mg PO DAILY 07/27/17 09/04/18 History torsemide 40 mg PO DAILY 07/27/17 09/04/18 History beclomethasone dipropionate [Qvar 1 puff INHALATION BID 09/04/18 09/04/18 History RediHaler] chlorthalidone 12.5 mg PO DAILY 09/04/18 09/04/18 History diltiazem HCl 60 mg PO TID PRN 09/04/18 09/04/18 History lacosamide [Vimpat] 200 mg PO BID 09/04/18 09/04/18 History potassium chloride 40 meq PO DAILY 09/04/18 09/04/18 History Allergies Allergy/AdvReac Type Severity Reaction Status Date / Time hydrocodone [HYDROCODONE] Allergy Severe HIVES Verified 09/04/18 15:18 adhesive tape Allergy Intermediate Verified 09/04/18 15:18 latex Allergy Intermediate Verified 09/04/18 15:18 levofloxacin [LEVOFLOXACIN] AdvReac Mild STOMACH Verified 09/04/18 15:18 ISSUES miracle liam plant food Allergy anaphylaxis Uncoded 09/04/18 15:18 with contact Review of Systems Review of Systems All systems reviewed & are unremarkable except as noted in HPI and below Exam Vital Signs (past 8 hours): - 09/04/18 16:01 09/04/18 16:39 09/04/18 17:21 Temperature Pulse Rate 69 74 Respiratory Rate 14 21 17 Blood Pressure Blood Pressure [Left Arm] 114/57 L Blood Pressure [Left Wrist] 119/65 134/91 H Pulse Oximetry 100 100 95 09/04/18 17:30 09/04/18 18:15 09/04/18 19:49 Temperature 98.2 F Pulse Rate 66 69 62 Respiratory Rate 21 21 17 Blood Pressure 134/79 Blood Pressure [Left Arm] Blood Pressure [Left Wrist] 134/91 H 155/140 H Pulse Oximetry 100 100 99 09/04/18 23:05 Temperature 98.2 F Pulse Rate 62 Respiratory Rate 18 Blood Pressure 121/61 Blood Pressure [Left Arm] Blood Pressure [Left Wrist] Pulse Oximetry 99 Oxygen Delivery Method Room Air Oxygen Flow Rate 0 Narrative Exam Narrative: Constitutional: NAD, morbidly obese habitus BMI 50.7. GCS 15 Neurologic: AOx3, no focal neurological deficits Head: NC, AT Eyes: PERRL, EOMI, Ears: external ears normal Nose: external nose normal, no rhinorrhea or epistaxis Throat: MMM, oropharynx w/o exudate Neck: no masses, lymphadenopathy, or JVD Chest / Respiratory: equal chest rise, unlabored respiratory effort, no tachypnea Crackles b/l Heart / CV: S1S2, no murmur Abdomen / GI: central obesity, NT, ND, + BS, difficult to palpate for organomegaly in lieu of large abdominal contour, abdominal edema noted : no suprapubic tenderness, no CVA Peripheral / Vascular: warm to touch, DP and PT pulses palpable, no edema Musc: full ROM of upper and lower extremities, adequate muscle tone and bulk Skin: no ecchymosis or suspicious lesions / ulcers, no rashes noted Objective Labs Result Diagrams: 09/04/18 15:31 09/04/18 15:31 Labs: Laboratory Results - last 24 hr 09/04/18 09/04/18 09/04/18 15:31 15:31 15:31 WBC 11.1 H RBC 4.30 Hgb 12.3 Hct 36.7 MCV 85.4 MCH 28.5 MCHC 33.4 RDW 13.0 Plt Count 393 Neut % (Auto) 66.7 Lymph % (Auto) 24.0 L Kerr % (Auto) 6.9 Eos % (Auto) 2.0 Baso % (Auto) 0.4 Neut # (Auto) 7400 H Lymph # (Auto) 2700 Kerr # (Auto) 800 Eos # (Auto) 200 Baso # (Auto) 0 Sodium 141 Potassium 3.0 L Chloride 103 Carbon Dioxide 28 BUN 17 Creatinine 0.70 Estimated GFR > 60.0 BUN/Creatinine Ratio 24.3 H Glucose 104 H Lactate 1.5 Calcium 9.4 Magnesium Total Bilirubin 0.5 AST 22 ALT 26 Alkaline Phosphatase 108 Troponin I B-Natriuretic Peptide Total Protein 7.3 Albumin 4.2 Globulin 3.1 Albumin/Globulin Ratio 1.4 Procalcitonin 09/04/18 09/04/18 09/04/18 15:31 15:31 15:31 WBC RBC Hgb Hct MCV MCH MCHC RDW Plt Count Neut % (Auto) Lymph % (Auto) Kerr % (Auto) Eos % (Auto) Baso % (Auto) Neut # (Auto) Lymph # (Auto) Kerr # (Auto) Eos # (Auto) Baso # (Auto) Sodium Potassium Chloride Carbon Dioxide BUN Creatinine Estimated GFR BUN/Creatinine Ratio Glucose Lactate Calcium Magnesium 2.1 Total Bilirubin AST ALT Alkaline Phosphatase Troponin I < 0.012 B-Natriuretic Peptide 145 H Total Protein Albumin Globulin Albumin/Globulin Ratio Procalcitonin 09/04/18 15:31 WBC RBC Hgb Hct MCV MCH MCHC RDW Plt Count Neut % (Auto) Lymph % (Auto) Kerr % (Auto) Eos % (Auto) Baso % (Auto) Neut # (Auto) Lymph # (Auto) Kerr # (Auto) Eos # (Auto) Baso # (Auto) Sodium Potassium Chloride Carbon Dioxide BUN Creatinine Estimated GFR BUN/Creatinine Ratio Glucose Lactate Calcium Magnesium Total Bilirubin AST ALT Alkaline Phosphatase Troponin I B-Natriuretic Peptide Total Protein Albumin Globulin Albumin/Globulin Ratio Procalcitonin < 0.05 Assessment & Plan Assessment & Plan narrative: Hypervolemia, acute, present on admission, active - Suspected to be in the setting of decompensated heart failure - See 'HF plan of care - AM labs, monitor electrolytes and renal function Diastolic heart failure, acute on chronic, present on admission, active - Echocardiogram (last in 2014) - Inadequate diuretic response by report, 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 Strict I/O monitoring - Start on lasix gtt at 5 mg/hr and metolazone 2.5 mg for diuresis Tachy-beth syndrome (s/p dual lead PPM implant), chronic condition, present on admission, active - patient would benefit from pacemaker interrogation Exertional dyspnea, acute, present on admission, active - Suspected to be in the setting of decompensated heart failure / cardiomyopathy - DDx: Cardiac arrhythmia, failed pacemaker, thyroid abnormalities, or PE - Add D-dimer to lab if elevated consider CT a of chest to rule out PE Hypokalemia, acute, present on admission, active - replete potassium per e-lyte protocol CATARINO, chronic condition, present on admission, active - patient needs an outpatient sleep study, at high risk for obesity hypoventilation syndrome - continuous pulse ox, nurses to notify if patient is having nocturnal hypoxia Morbid obesity, BMI 50.7, chronic condition, present on admission, active - in the setting of metabolic syndrome and associated hormonal dysregulation - patient would benefit from diet, exercise, and lifestyle modifications; given degree obesity, investigating option of bariatric surgery would not be unreasonable Recurrent nephrolithiasis, chronic condition, present on admission, stable - the cause of recurrent nephrolithiasis is not entirely clear, notes prior history calcium oxalate and uric acid stones, these likely to be related to patient's lifestyle and dietary choices - she would benefit from HCTZ, potassium citrate, and possibly allopurinol to help decrease stone formation, given need for follow-up this will need to be investigated on outpatient basis and managed by PCP or Urology - check UA, if positive signs of an infection then will order blood cultures (not indicated at this time); patient is not having overt signs of SIRS /sepsis and has been afebrile VTE prophylaxis: Heparin SQ Code status discussed, patient wishes to be full code. Designates her parents as proxy in the event she is unable to make healthcare decisions. Home medications reviewed, adjusted, and reconciled accordingly History of epilepsy, chronic condition, present on admission, active - last episode of seizure in the past 2 weeks preceded in adjustment of epileptic medication regimen, dose adjusted after the event by her neurologist Dr. 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
[2018-09-05] MEDS: SODIUM CHLORIDE 0.9% FLUSH 10 ML IV ×3 (00:04→20:57)
[2018-09-05] MEDS: levETIRAcetam 250 MG TABLET 1000 MG PO ×3 (00:39→20:56)
--- NOTE | 2018-09-05 00:45 | PC.NURSE ---
Addendum entered by Shena Burks R.N. 09/05/18 05:57: Up to bathroom with SBA, then stood at sink and brushed teeth. UOP 825cc since Lasix gtt started. Original Note: Patient is alert and oriented. Breath sounds diminished but CTA with RA sat of 99%. Denies SOB at rest but is SOB with activity and unable to lie flat. HRR with last recorded telemetry reading of SB with rate of 59. Does admit to feeling slightly nauseated but declines antiemetic, gingerale and/or saltine crackers. BT present and abdomen is soft. Denies dysuria, frequency or urgency. Is able to turn self in bed and out of bed with SBA. Denies pain. Does have chronic numbness in right extremities. Reports 1 fall in past 1-2 weeks when she had her last seizure (patient states MD feels related to making adjustments in seizure medications; seizure pads on bed. Fall risk score is high and bed alarm is activated; verbalizes understanding.
--- NOTE | 2018-09-05 01:07 | DI.ECHO.S_ITS ---
[facility] +---------+ : : [address] : : : : [id number] : : : : Phone: [phone]+ Echocardiogram Report + + :Name: ALEXANDER GUARDADO Study Date: 09/05/2018 Height: 67 in : :[facility] Exam Location: [facility] Weight: 323 lb : : Gender: Female BSA: 2.5 m2 : :: 1985 Age: 33 yrs BP: 111/62 mmHg: :Reason For Study: CARDIOMYOPATHY, HEART FAILURE, PALPITATIONS : : Performed By: Alejo Connor : :Referring: THANIA ANAND : + + Interpretation Summary 1) Normal left ventricular thickness, size, and systolic function (EF 55-60%). 2) There are no obvious focal wall motion abnormalities noted but poor endocardial definition reduces the sensitivity for the detection of such. 3) Normal right ventricular size and function. There is a pacemaker lead in the right ventricle. 4) No significant valvular abnormalities. 5) No prior Echo available for comparison. Procedure: A two-dimensional transthoracic echocardiogram with color flow and Doppler was performed. The study quality was technically adequate. There is no prior echocardiogram noted for this patient. The patient was in normal sinus rhythm during the exam. Left Ventricle: The left ventricle is normal in size. There is normal left ventricular wall thickness. Left ventricular systolic function is normal. The ejection fraction is estimated to be 55-60%. There are no obvious focal wall motion abnormalities noted but poor endocardial definition reduces the sensitivity for the detection of such. Right Ventricle: The right ventricle is normal in size and function. There is a pacemaker lead in the right ventricle. Atria: Both atria are normal in size. The interatrial septum is intact with no evidence for an atrial septal defect. Mitral Valve: The mitral valve is normal in structure and function. There is trace mitral regurgitation. Aortic Valve: The aortic valve is normal in structure and function. The aortic valve is trileaflet. The aortic valve opens well. There is no aortic valve stenosis. No aortic regurgitation is present. Tricuspid Valve: The tricuspid valve is normal in structure and function. There is trace tricuspid regurgitation. The right ventricular systolic pressure is estimated to be at least 31 mmHg based on an estimated right atrial pressure of 3 mm Hg. Pulmonic Valve: The pulmonic valve is normal in structure and function. There is trace pulmonic regurgitation. Great Vessels: The aortic root is normal size. The dimensions of the ascending aorta are normal. The pulmonary artery is normal size. The IVC is of normal diameter and collapses greater than 50% with a sniff. This suggests a low right atrial pressure of 3 mm Hg. Pericardium/ Pleura There is no pericardial effusion. There is no pleural effusion. MMode/2D Measurements & Calculations LVIDd: 5.1 cm LVOT diam: 2.2 cm LVIDs: 3.6 cm Ao root diam: 2.6 cm FS: 29.2 % Aortic Jxn: 2.1 cm EPSS: 0.66 cm asc Aorta Diam: 2.8 cm IVSd: 1.0 cm Ao Arch Diam (Prox Trans): 2.5 cm LVPWd: 0.89 cm LV cohen. diameter/BSA (cm/m^2): 2.1 LV sys. diameter/BSA (cm/m^2): 1.5 LA dimension: 4.0 cm RA long axis: 4.9 cm LA A2 area: 21.2 cm2 RA area: 19.7 cm2 LA A4 area: 25.5 cm2 RA vol: 67.3 ml LA length (vol): 6.3 cm RA : 27.1 ml/m2 LA vol: 72.4 ml IVC diam: 1.8 cm LA vol index: 29.2 ml/m2 Doppler Measurements & Calculations Ao V2 max: 158.3 cm/sec LVOT Max Eros: 119.4 cm/sec Ao V2 mean: 120.4 cm/sec LV V1 max P.7 mmHg Ao max P.0 mmHg LV V1 VTI: 27.9 cm Ao mean P.2 mmHg MIREILLE(I,D): 2.9 cm2 Ao V2 VTI: 35.4 cm MIREILLE(V,D): 2.8 cm2 sev ratio: 0.79 MIREILLE indexed to BSA (cm^2/m^2): 1.2 MV E max eros: 112.2 cm/sec TR max eros: 264.3 cm/sec MV A max eros: 59.1 cm/sec TR max P.9 mmHg MV E/A: 1.9 PA V2 max: 108.2 cm/sec Med Peak E' Eros: 7.4 cm/sec PA V2 mean: 86.3 cm/sec E/E' med: 15.1 PA mean P.1 mmHg Lat Peak E' Eros: 13.3 cm/sec PA pr(Accel): 34.1 mmHg E/E' lat: 8.4 PA Accel Time: 0.10 sec E/e' average: 11.8 MV dec time: 0.22 sec SV(LVOT): 102.1 ml Reading Physician:11:33 AM
[2018-09-05 01:27] LABS: RBC Urine None Seen (0-5/HPF); WBC Urine None Seen (0-5/HPF)
[2018-09-05 01:29] LABS: Appearance Urine UA CLEAR; Bilirubin Urine UA NEGATIVE (NEGATIVE); Color Urine UA YELLOW; Glucose Urine UA NEGATIVE (Negative); Ketones Urine UA NEGATIVE (NEGATIVE); Leukocyte Esterase Urine UA NEGATIVE (NEGATIVE); Nitrite Urine UA NEGATIVE (Negative); Occult Blood Urine UA NEGATIVE (Negative); Protein Urine UA NEGATIVE (Negative); Urobilinogen Urine UA 0.2 E.U./dL (0.2)
[2018-09-05 01:46] LABS: Bacteria Urine Moderate (10-30); Culture Indicated Urine Cult Not Indicated; Squamous Epithelial Cell Urine 1-5 /HPF (0-5/HPF)
[2018-09-05] MEDS: FUROSEMIDE 100 MG in SODIUM CHLORIDE 0.9% 50 ML IV ×2 (02:10→22:24)
[2018-09-05 04:52] VITALS: BP 116/71; PULSE 65; RESP 18; TEMP 36.6; O2SAT 97
[2018-09-05 05:46] LABS: Add Manual Diff / Slide Review NO; Basophils Absolute Auto 100 /uL (0-100); Basophils Percent Auto 0.5 % (0-2); Eosinophils Absolute Auto 500 /uL (0-450); Eosinophils Percent Auto 4.7 % (2-4); Hematocrit 34.9 % (36-46); Hemoglobin 11.8 g/dL (12.0-16.0); Lymphocytes Absolute Auto 2800 /uL (1100-4500); Lymphocytes Percent Auto 25.8 % (25-40); Mean Corpuscular HGB Conc 33.9 % (30-36); Mean Corpuscular Hemoglobin 29.1 PG (26-34); Mean Corpuscular Volume 85.8 fL (80-100); Monocytes Absolute Auto 600 /uL (0-900); Neutrophils Absolute Auto 7000 /uL (1500-7000); Platelet Count 357 X10^3/uL (150-400); Red Blood Cell Count 4.06 X10^6/uL (4.0-5.2); Red Cell Distribution Width 13.4 % (11.6-14.8)
[2018-09-05 05:49] LABS: Cholesterol 171 mg/dL (140-199); HDL Cholesterol 51 mg/dL (40-60); LDL Cholesterol Calculated 86 mg/dL (<100); Triglycerides 171 mg/dL (35-150); VLDL Cholesterol Calculated 34 mg/dL (2-30)
[2018-09-05 05:51] LABS: BUN Creatinine Ratio 23.3 (6-22); Blood Urea Nitrogen 14 mg/dL (7-17); Calcium 8.6 mg/dL (8.4-10.2); Carbon Dioxide 31 mmol/L (22-32); Chloride 101 mmol/L (98-107); Estimated Glomerular Filt Rate > 60.0 mL/min (>60); Glucose 107 mg/dL (70-100); HEMOLYSIS < 15 (0-50); Magnesium 1.9 mg/dL (1.6-2.3); Potassium 3.1 mmol/L (3.4-5.1); Sodium 139 mmol/L (137-145)
[2018-09-05 05:55] LABS: Hemoglobin A1C% w Est Avg Glu 5.6 % (4.0-6.0)
[2018-09-05 06:27] LABS: TSH w/ Reflex to FT4 2.39 uIU/mL (0.47-4.68)
[2018-09-05 07:24] LABS: D Dimer 236 ng/mL (<230)
[2018-09-05 08:00] VITALS: BP 111/62; PULSE 64; RESP 16; TEMP 36.8; O2SAT 98
[2018-09-05] MEDS: DIGOXIN 0.125 MG TABLET PO (09:23)
[2018-09-05] MEDS: metOLazone 2.5 MG TABLET PO (09:23)
[2018-09-05] MEDS: HEPARIN 5,000 UNIT/ML VIAL 5000 UNIT SUBCUT ×2 (09:25→20:55)
[2018-09-05] MEDS: ONDANSETRON 4 MG ODT PO (09:26)
[2018-09-05] MEDS: SERTRALINE 50 MG TABLET 150 MG PO (09:27)
--- NOTE | 2018-09-05 09:56 | PC.NURSE ---
Addendum entered by Nikole Leach R.N. 09/05/18 10:57: CARDIAC - echo in progress. Original Note: AM NOTE - pt is alert, no complaint chest discomfort or sob, does have chronic underlying nausea at times, did dung breakfast, up to chair w/some exhertional sob, none w/speech or at rest, bs coarse, clear, ra 98%, iv lasix at 2.5ml hr infusing, small blister l torso area from tele, placed allevyn dsg.
[2018-09-05 12:16] VITALS: BP 136/77; PULSE 65; RESP 16; TEMP 37.1; O2SAT 97
--- NOTE | 2018-09-05 13:19 | CM.DANOTE ---
DCP/Assessment: Reviewed chart. Patient is a 33yr old female admitted to [facility].. with CHF. PCP is Dr. Velásquez. Primary payor is 1)[facility] [place] 2)Medicaid. Reviewed chart. Met with patient explained CM/SW role. Patient sitting in recliner, alert and oriented at time of visit. Patient reports that she is primarily I in ADL's. However, she does not drive secondary to epileptic episodes. Patient resides with both parents and her daughter in [place] Patient does anticipate any d/c planning needs at this time. Patient uses cane on occasion and has walker at home. Patient obese and reports CATARINO. At this time patient does not anticipate any d/c planning needs. CM team to continue to follow. P: Home when stable. 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 No History Provided By Patient Medical Record Prior Living Arrangements House Household Members family children Type of transporation used prior to Relies on Others admit Independent with ADL's Yes Is patient alert and oriented? Yes Caregiver for Another Yes: Has 12yr old daughter DME Already Rented / Owned Cane Barriers to Discharge No Discharge Plan Home Transportation Arrangement Family to provide transportation Whiteboard Updated in Patient Room with Yes name and ext. # of Weaving Loom Operator Review Status In Process Next Review Type Continued Stay Review
[2018-09-05 15:45] VITALS: BP 141/66; PULSE 60; RESP 18; TEMP 36.9; O2SAT 99
--- NOTE | 2018-09-05 16:28 | P.PN_ITS ---
Subjective Date Patient Seen: 09/05/18 Interval history: Patient is a 33-year-old female was admitted to the hospital for progressive dyspnea on exertion. She was started on high-dose Lasix and metolazone. Since that time she has noted improvement in her breathing and some decrease in her lower extremity edema. She had some nausea earlier but that has since resolved. Patient reports flu-like symptoms for the last month. She maintains a strict low-sodium diet. She is scheduled for an outpatient sleep study in October. Exam Vital Signs (past 8 hours): - 09/05/18 12:16 09/05/18 15:45 Temperature 98.7 F 98.4 F Pulse Rate 65 60 Respiratory Rate 16 18 Blood Pressure 136/77 141/66 H Pulse Oximetry 97 99 Oxygen Delivery Method Room Air Oxygen Flow Rate 0 Narrative Exam Narrative: Pleasant female in no obvious distress Lungs: Clear to auscultation Cardiac exam: Regular rate and rhythm normal S1-S2 with a 2/6 systolic ejection Abdomen: Obese soft and nontender Extremities: 1+ pitting edema bilateral Objective Labs Result Diagrams: 09/05/18 05:04 09/05/18 05:04 Labs: Laboratory Results - last 24 hr 09/04/18 09/04/18 09/04/18 15:31 15:31 15:31 WBC RBC Hgb Hct MCV MCH MCHC RDW Plt Count Neut % (Auto) Lymph % (Auto) [place] % (Auto) Eos % (Auto) Baso % (Auto) Neut # (Auto) Lymph # (Auto) [place] # (Auto) Eos # (Auto) Baso # (Auto) D-Dimer Sodium Potassium Chloride Carbon Dioxide BUN Creatinine Estimated GFR BUN/Creatinine Ratio Glucose Hemoglobin A1c Calcium Magnesium 2.1 Troponin I < 0.012 B-Natriuretic Peptide 145 H Triglycerides Cholesterol LDL Cholesterol, Calc VLDL Cholesterol HDL Cholesterol Procalcitonin TSH Urine Color Urine Appearance Urine pH Ur Specific [place] Urine Protein Urine Glucose (UA) Urine Ketones Urine Occult Blood Urine Nitrate Urine Bilirubin Urine Urobilinogen Ur Leukocyte Esterase Urine RBC Urine WBC Ur Squamous Epith Cells Urine Bacteria Ur Culture Indicated? 09/04/18 09/05/18 09/05/18 15:31 01:20 05:04 WBC RBC Hgb Hct MCV MCH MCHC RDW Plt Count Neut % (Auto) Lymph % (Auto) [place] % (Auto) Eos % (Auto) Baso % (Auto) Neut # (Auto) Lymph # (Auto) [place] # (Auto) Eos # (Auto) Baso # (Auto) D-Dimer Sodium Potassium Chloride Carbon Dioxide BUN Creatinine Estimated GFR BUN/Creatinine Ratio Glucose Hemoglobin A1c 5.6 Calcium Magnesium Troponin I B-Natriuretic Peptide Triglycerides Cholesterol LDL Cholesterol, Calc VLDL Cholesterol HDL Cholesterol Procalcitonin < 0.05 TSH Urine Color Yellow Urine Appearance Clear Urine pH 7.0 Ur Specific [place] 1.020 Urine Protein Negative Urine Glucose (UA) Negative Urine Ketones Negative Urine Occult Blood Negative Urine Nitrate Negative Urine Bilirubin Negative Urine Urobilinogen 0.2 Ur Leukocyte Esterase Negative Urine RBC None seen Urine WBC None seen Ur Squamous Epith Cells 1-5 /hpf Urine Bacteria Moderate (10-30) H Ur Culture Indicated? Cult not indicated 09/05/18 09/05/18 09/05/18 05:04 05:04 05:04 WBC 11.0 RBC 4.06 Hgb 11.8 L Hct 34.9 L MCV 85.8 MCH 29.1 MCHC 33.9 RDW 13.4 Plt Count 357 Neut % (Auto) 64.0 Lymph % (Auto) 25.8 [place] % (Auto) 5.0 Eos % (Auto) 4.7 H Baso % (Auto) 0.5 Neut # (Auto) 7000 Lymph # (Auto) 2800 [place] # (Auto) 600 Eos # (Auto) 500 H Baso # (Auto) 100 D-Dimer Sodium 139 Potassium 3.1 L Chloride 101 Carbon Dioxide 31 BUN 14 Creatinine 0.60 Estimated GFR > 60.0 BUN/Creatinine Ratio 23.3 H Glucose 107 H Hemoglobin A1c Calcium 8.6 Magnesium 1.9 Troponin I B-Natriuretic Peptide Triglycerides 171 H Cholesterol 171 LDL Cholesterol, Calc 86 VLDL Cholesterol 34 H HDL Cholesterol 51 Procalcitonin TSH Urine Color Urine Appearance Urine pH Ur Specific [place] Urine Protein Urine Glucose (UA) Urine Ketones Urine Occult Blood Urine Nitrate Urine Bilirubin Urine Urobilinogen Ur Leukocyte Esterase Urine RBC Urine WBC Ur Squamous Epith Cells Urine Bacteria Ur Culture Indicated? 09/05/18 09/05/18 05:04 06:55 WBC RBC Hgb Hct MCV MCH MCHC RDW Plt Count Neut % (Auto) Lymph % (Auto) [place] % (Auto) Eos % (Auto) Baso % (Auto) Neut # (Auto) Lymph # (Auto) [place] # (Auto) Eos # (Auto) Baso # (Auto) D-Dimer 236 H Sodium Potassium Chloride Carbon Dioxide BUN Creatinine Estimated GFR BUN/Creatinine Ratio Glucose Hemoglobin A1c Calcium Magnesium Troponin I B-Natriuretic Peptide Triglycerides Cholesterol LDL Cholesterol, Calc VLDL Cholesterol HDL Cholesterol Procalcitonin TSH 2.39 Urine Color Urine Appearance Urine pH Ur Specific [place] Urine Protein Urine Glucose (UA) Urine Ketones Urine Occult Blood Urine Nitrate Urine Bilirubin Urine Urobilinogen Ur Leukocyte Esterase Urine RBC Urine WBC Ur Squamous Epith Cells Urine Bacteria Ur Culture Indicated? 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 Strict I/O monitoring - Start on lasix gtt at 5 mg/hr and metolazone 2.5 mg for diuresis, Echo REsults: Hypervolemia, acute, present on admission, active - Suspected to be in the setting of decompensated heart failure - See 'HF plan of care - AM labs, monitor electrolytes and renal function - Start on lasix gtt at 5 mg/hr and metolazone 2.5 mg for diuresis, continue current treatment plan. Echo results: Normal left ventricular thickness, size, and systolic function (EF 55-60%). 2) There are no obvious focal wall motion abnormalities noted but poor endocardial definition reduces the sensitivity for the detection of such. 3) Normal right ventricular size and function. There is a pacemaker lead in the right ventricle. 4) No significant valvular abnormalities. 5) No prior Echo available for comparison. Tachy-beth syndrome (s/p dual lead PPM implant), chronic condition, present on admission, active - patient would benefit from pacemaker interrogation Exertional dyspnea, acute, present on admission, active - Suspected to be in the setting of decompensated heart failure / cardiomyopathy - DDx: Cardiac arrhythmia, failed pacemaker, thyroid abnormalities, or PE - Add D-dimer to lab if elevated consider CT a of chest to rule out PE Hypokalemia, acute, present on admission, active - replete potassium per e-lyte protocol CATARINO, chronic condition, present on admission, active - patient needs an outpatient sleep study, at high risk for obesity hypoventi lation syndrome - continuous pulse ox, nurses to notify if patient is having nocturnal hypoxia Morbid obesity, BMI 50.7, chronic condition, present on admission, active - in the setting of metabolic syndrome and associated hormonal dysregulation - patient would benefit from diet, exercise, and lifestyle modifications; given degree obesity, investigating option of bariatric surgery would not be un reasonable Recurrent nephrolithiasis, chronic condition, present on admission, stable - the cause of recurrent nephrolithiasis is not entirely clear, notes prior history calcium oxalate and uric acid stones, these likely to be related to patient's lifestyle and dietary choices - she would benefit from HCTZ, potassium citrate, and possibly allopurinol to help decrease stone formation, given need for follow-up this will need to be investigated on outpatient basis and managed by PCP or Urology - check UA, if positive signs of an infection then will order blood cultures (not indicated at this time); patient is not having overt signs of SIRS /sepsis and has been afebrile VTE prophylaxis: Heparin SQ Code status discussed, patient wishes to be full code. Designates her parents as proxy in the event she is unable to make healthcare decisions. Home medications reviewed, adjusted, and reconciled accordingly History of epilepsy, chronic condition, present on admission, active - last episode of seizure in the past 2 weeks preceded in adjustment of epileptic medication regimen, dose adjusted after the event by her neurologist Dr. 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
--- NOTE | 2018-09-05 16:38 | DI.CT.S_ITS ---
PROCEDURE: CT ANGIO CHEST PE PROTOCOL INDICATIONS: Shortness of breath. Clinical concern for PE TECHNIQUE: After the administration of intravenous contrast, 2 mm thick sections acquired from the pulmonary apices to the posterior costophrenic angles. 3-dimensional maximum intensity projection (MIP) coronal and sagittal reformats were then acquired through the thorax. For radiation dose reduction, the following was used: automated exposure control, adjustment of mA and/or kV according to patient size. COMPARISON: [facility], CT, PE STUDY (CTA CHEST), 11/28/2016, 3:04. [facility], CR, XR CHEST 2V, 09/04/2018, 15:28. [facility], CR, XR CHEST 2V, 07/27/2017, 10:50. FINDINGS: Image quality: This study is limited by body habitus. Pulmonary arteries: The bolus of the contrast injection is suboptimal. The main pulmonary artery measures approximately 160 Hounsfield units. Pulmonary artery densities are greater than 250 Hounsfield units are considered to be ideal for evaluation of pulmonary embolism. However, no large or central pulmonary emboli are seen on these images. No pulmonary emboli are seen more distally, although sensitivity for detection of such is limited on this study. Lungs and pleura: Lungs are clear. No pleural effusions or pneumothorax. Central and peripheral airways are patent. Mediastinum: A pacer device is seen. Heart size is moderately enlarged, without pericardial effusion. No mediastinal or hilar adenopathy. Thoracic aorta is normal in caliber and enhancement. Esophagus is normal in caliber, without a significant hiatal hernia. Bones and chest wall: No suspicious bony lesions. Ribs and thoracic spine appear intact throughout. Thyroid gland demonstrates no significant CT abnormality. No axillary or supraclavicular adenopathy. Abdomen: An enlarged low-density liver can be seen. The visualized portions of the upper abdominal structures are otherwise unremarkable for imaging technique. IMPRESSION: No large or central pulmonary embolism can be seen. Moderate cardiomegaly. Incidental note is made of: Pacer device Enlarged, fatty liver. Dictated by: Chaz Davis M.D. on 09/05/2018 at 16:10 Approved by: Chaz Davis M.D. on 09/05/2018 at 16:12
--- NOTE | 2018-09-05 18:14 | PC.NURSE ---
Addendum entered by Jeanette Quinteros R.N. 09/05/18 21:38: Uneventful evening. IV lasix continues as per orders. Tele NSR per ICU staff Condition remains essentially unchanged. Call light w/in reach, pt calls appropriately for needs. Continue w/plan of care. Original Note: Pt up ad yadira in room. Denies discomfort IV lasix continues as per orders. Lungs clear, SpO2 96% RA Tele NSR per ICU staff. 2+ edema to ankles/feet Call light w/in reach, pt calls apapropriately for needs.
[2018-09-05 20:29] VITALS: BP 102/68; PULSE 67; RESP 20; TEMP 36.6; O2SAT 100
[2018-09-05] MEDS: POTASSIUM CHLORIDE 20 MEQ TAB 40 MEQ PO (20:54)
[2018-09-05] MEDS: MONTELUKAST 10 MG TABLET PO (20:57)
[2018-09-05 23:30] VITALS: BP 129/68; PULSE 62; RESP 19; TEMP 36.9; O2SAT 98
--- NOTE | 2018-09-06 01:01 | PC.NURSE ---
Addendum entered by Shena Burks R.N. 09/06/18 03:06: Complains of itchiness from telemetry patches on chest it happens every time. Informed Annabel, LO, and order received for Benadryl and administered at this time. Original Note: Patient is alert and oriented. Breath sounds diminished but CTA with RA sat of 99% (on continuous pulse oximetry). HRR and was a-paced on last telemetry reading. Denies nausea. BT hypoactive but is passing flatus. Up to bathroom with SBA due to being high fall risk (recent fall during a seizure) and attachment to multiple lines (SCD's, oximeter, IV) and seizure pads. Voiding pale yellow urine (on Lasix gtt) and states she is no longer SOB with exertion and feels the edema has improved significantly. Turns self in bed. Denies pain. Intermittent, chronic, numbness in right extremities currently not present.
[2018-09-06 03:04] VITALS: BP 113/60; PULSE 61; RESP 18; TEMP 36.7; O2SAT 97
[2018-09-06] MEDS: diphenhydrAMINE 25 MG TABLET PO ×2 (03:05→14:35)
[2018-09-06 06:09] LABS: BUN Creatinine Ratio 17.5 (6-22); Blood Urea Nitrogen 14 mg/dL (7-17); Calcium 9.7 mg/dL (8.4-10.2); Carbon Dioxide 37 mmol/L (22-32); Chloride 90 mmol/L (98-107); Estimated Glomerular Filt Rate > 60.0 mL/min (>60); Glucose 109 mg/dL (70-100); HEMOLYSIS < 15 (0-50); Potassium 3.1 mmol/L (3.4-5.1); Sodium 139 mmol/L (137-145)
[2018-09-06 07:00] VITALS: BP 129/77; PULSE 61; RESP 20; TEMP 36.2; O2SAT 93
[2018-09-06] MEDS: levETIRAcetam 250 MG TABLET 1000 MG PO (08:23)
[2018-09-06 08:24] VITALS: BP 129/77; PULSE 77
[2018-09-06] MEDS: metOLazone 2.5 MG TABLET PO (08:24)
[2018-09-06] MEDS: DIGOXIN 0.125 MG TABLET PO (08:24)
[2018-09-06] MEDS: POTASSIUM CHLORIDE 20 MEQ TAB 40 MEQ PO (08:24)
[2018-09-06] MEDS: SERTRALINE 50 MG TABLET 150 MG PO (08:25)
[2018-09-06] MEDS: BECLOMETHASONE 80 MCG INH 10.6 GM 1 PUFF INH (08:30)
[2018-09-06 08:37] VITALS: PULSE 66; RESP 16; O2SAT 96
[2018-09-06] MEDS: POTASSIUM CHLORIDE 60 MEQ in SODIUM CHLORIDE 0.9% 500 ML 88.333 ML IV (10:43)
[2018-09-06] MEDS: SODIUM CHLORIDE 0.9% FLUSH 10 ML IV (10:43)
--- NOTE | 2018-09-06 11:02 | PM.DS.1 ---
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 Follows w/ the following physicians: Dr. Aponte and Dr Butt for cardiology in [place]. Dr. Schuyler Zimmerman for epilepsy at [facility] [place]. Dr. Anna Hinkle is her PCP. Patient presented to the ED on 09/04/2018 out of concern for fluid retention. Symptoms initially noted 1 week ago by report. Associated symptoms include worsening peripheral and abdominal edema, orthopnea, PND, exertional dyspnea, nonproductive cough. Reports increase from baseline weight of 307# to 332# on day of admission. Able to ambulate approximately 20 ft before needing to rest. Additional symptoms include intermittent fevers (as high as 102 range) and occasional chills. Patient is known to have recurrent nephrolithiasis. She has had 5 isolated episodes in this year alone and total of 19 throughout her lifetime by report. She always was able to pass stones on her own and has not required surgical intervention. Patient reports a 3 for week history of intermittent chills and fever as high as 102F. Known to have h/o recurrent UTIs and pyelonephritis. Reports worsening fatigue, malaise, and myalgia. Reports experiencing more frequent palpitations. No known thyroid disorders. Experiencing mild substernal/epigastric discomfort, which in notes to have pressure-like quality. There is no radiation to the back, extremities, neck, or jaw. Dizziness and unsteady gait with position change. Denies syncopal events. No prior history of PE or DVT. Patient is not on hormone therapy. Her lifestyle and degree obesity limits her mobility. Prior history of CATARINO, which noted to have resolved with tonsillectomy. She has a pending sleep study scheduled. Present time does not wear a CPAP. Patient is known to have underlying asthma, which has been well controlled. Denies increased need for inhalers. Denies being around ill contacts. Patient was seen by her fish header, Dr. Fadi, in the past week. Recommendation was made to increase the dose of torsemide and bumetanide to aid with diuresis. Patient reports making recommended changes, however does not feel there is improvement in her overall volume status. She does not feel that she is responding well to the diuretics. No prior history of a cardiac catheterization or valvular heart disease. Patient does have a fairly significant risk for PE or DVT, in lieu of underlying morbid obesity, decreased mobility, and underlying cardiac problems. Patient has no prior history of cerebrovascular events. However she does have a history of seizures and associated Brent's paralysis by report. Discharge Providers Date of admission: 09/04/18 18:22 Discharge Date: 10/06/18 Discharge provider: Lynnette Gayle DO Summary Discharge Diagnosis: 1. Acute diastolic heart failure exacerbation, present on admission. Resolved. 2. Acute on chronic exertional dyspnea, acute, present on admission. Resolved. 3. Acute hypokalemia, present on admission. Resolved. 4. Tachy-beth syndrome status post dual lead pacemaker implant, chronic, present on admission. Stable. 5. CATARINO, chronic, present on admission. Stable. 6. Morbid obesity, chronic, present on admission. Stable. 7. Recurrent nephrolithiasis, chronic, present on admission. Stable. 8. History of epilepsy, chronic, present on admission. Stable. 9. Incidental fatty liver disease on CTA, present on admission. Stable. Hospital Course: 1. Acute diastolic heart failure exacerbation, present on admission. Resolved. -Inadequate diuretic response by report, on both bumex and torsemide. Discussed with her fish header the need for 2 loop diuretics, see below. -Echocardiogram did not demonstrate systolic or diastolic dysfunction. Previous did not demonstrate CHF per [facility] fish header. -Continued lasix gtt at 5 mg/hr and metolazone 2.5 mg for diuresis. Discharged on torsemide 40 mg twice daily x 1 week and then decrease to 40 mg daily. Continue bumex only as needed and as previously instructed, see below. -Continued daily weights and strict I&O monitoring. Net -2L. -Discussed patient with her fish header, Dr. Aponte, who despite echocardiogram not demonstrating diastolic dysfunction believes she has diastolic dysfunction solely based clinically and infers the only way to truly assess would be a heart catheterization. He recommended continue torsemide increased to 40 mg twice daily for the next 1 week and then go back to 40 mg daily thereafter. Continue to take Bumex as needed and as previously instructed which he relays she usually manages quiet well. Follow-up closely. -Continued strict 2g low-sodium diet. Patient reports she usually has a strict low sodium diet and reluctantly admits to a few slip ups. 2. Acute on chronic exertional dyspnea, acute, present on admission. Resolved. -Suspected to be in the setting of decompensated heart failure/cardiomyopathy, see plan above. Also suspect some component of deconditioning. -Differential diagnosis: Cardiac arrhythmia, failed pacemaker, thyroid abnormalities, or PE. -D-dimer elevated and CTA chest ruled out PE. 3. Acute hypokalemia, present on admission. Resolved. -Initial potassium 3.0. Received potassium chloride 100 mEq IV total and 40 mEq PO daily. -Recommended follow-up with PCP, Dr. David, in 2-3 days with repeat lab work to check potassium level and adjust potassium chloride dose if needed. 4. Tachy-beth syndrome status post dual lead pacemaker implant, chronic, present on admission. Stable. -Continued to monitor on telemetry. Intermittent atrial and ventricular pacing. -Recommend pacemaker interrogation in outpatient setting at cardiology follow-up. 5. CATARINO, chronic, present on admission. Stable. -Not on CPAP. -Recommend outpatient sleep study as she is at high risk for obesity hypoventilation syndrome. -Continued continuous pulse oximetry and ordered supplemental oxygen to use to keep oxygen saturation 88-92% which was not needed. 6. Morbid obesity, chronic, present on admission. Stable. -BMI 50.7. -In the setting of metabolic syndrome and associated hormonal dysregulation. -Recommended lifestyle modification including: diet and exercise; given degree obesity, investigating option of bariatric surgery would not be unreasonable all of which was discussed in detail. 7. Recurrent nephrolithiasis, chronic, present on admission. Stable. -Etiology of recurrent nephrolithiasis is not entirely clear. Prior history of calcium oxalate and uric acid stones which are undoubtedly related to patient's lifestyle and dietary choices. -She would benefit from HCTZ, potassium citrate, and possibly allopurinol to help decrease stone formation, given need for follow-up this will need to be investigated on outpatient basis and managed by PCP or Urology. 8. History of epilepsy, chronic, present on admission. Stable. -Last seizure recent in past 2 weeks preceded in adjustment of epileptic medication regimen and after seizure dose was re-adjusted by her neurologist Dr. Zimmerman. -Continued seizure precautions. -Continued levitiracetam 1000 mg twice daily and lacosamide 200 mg twice daily. 9. Incidental fatty liver disease on CTA, present on admission. Stable. -Defer further work-up and management to PCP and would consider hepatology referral. -Recommended lifestyle modification including: diet and exercise; given degree obesity, investigating option of bariatric surgery would not be unreasonable all of which was discussed in detail. Status at Discharge Functional status at discharge: independent ambulation Overall status at discharge: patient is back to baseline Exam Vital Signs (past 8 hours): - 09/06/18 03:04 09/06/18 07:00 09/06/18 08:24 Temperature 98.1 F 97.1 F L Pulse Rate 61 61 77 Respiratory Rate 18 20 Blood Pressure 113/60 129/77 129/77 Pulse Oximetry 97 93 09/06/18 08:37 Temperature Pulse Rate 66 Respiratory Rate 16 Blood Pressure Pulse Oximetry 96 Fraction of Inspired Oxygen 21 Oxygen Delivery Method Room Air Oxygen Flow Rate 0 Narrative Exam Narrative: General: Young female sitting in bedside chair and in no acute distress, well-developed, well-nourished, appropriately interactive. HEENT: Normocephalic, atraumatic. External ears without defect. Pupils equal, round, and reactive to light. Anicteric sclerae, moist conjunctivae, and no lid lag. Neck: Supple with full range of motion. No jugular venous distension. No lymphadenopathy or thyromegaly. Cardiovascular: Regular rate and rhythm without murmurs, rubs, or gallops appreciated. Pulmonary:Diminished but clear to auscultation bilaterally without crackles, wheezes, or rhonchi. Normal respiratory effort with no use of accessory muscles. Abdomen: Soft, obese, nontender, nondistended. No hepatosplenomegaly or masses appreciated. Extremities: No clubbing, cyanosis, or edema. Skin: Normal temperature, turgor, and texture; no rash, ulcers, or subcutaneous nodules appreciated. Neurological: Cranial nerves grossly intact. Psychiatric: Depressed mood with emotional lability and normal affect. Alert and oriented to person, place, and time. Objective Labs Result Diagrams: 09/05/18 05:04 09/06/18 05:22 Labs: Laboratory Results - last 24 hr 09/06/18 05:22 Sodium 139 Potassium 3.1 L Chloride 90 L Carbon Dioxide 37 H BUN 14 Creatinine 0.80 Estimated GFR > 60.0 BUN/Creatinine Ratio 17.5 Glucose 109 H Calcium 9.7 Discharge Plan Discharge Plan Patient Disposition: Home Discharge comment: You're being discharged home. Please follow-up with your primary care provider, Dr. David, in the next 3-5 days with blood work performed in the next 2 days to check your electrolytes. Your fish header has recommended continue torsemide increased to 40 mg twice daily for the next 1 week and then go back to 40 mg daily thereafter. Continue to take Bumex as needed and as previously instructed by your fish header. Continue to keep close track of your weight and consume a low-sodium diet. Implement lifestyle changes including diet and exercise as discussed. You need an updated sleep study as soon as possible and should be expedited and sleep apnea treated with CPAP if present. Please follow-up with your fish header at soonest available appointment. Please continue counseling/therapy and relaxation techniques and exercises for stress reduction. Discharge Med Rec/Prescriptions Prescriptions: Continued cetirizine 10 mg Tablet 10 mg PO DAILY RF: 0 levetiracetam 500 mg tablet 1,000 mg PO BID RF: 0 sertraline 100 mg tablet 150 mg PO DAILY RF: 0 montelukast 10 mg tablet 10 mg PO DAILY RF: 0 digoxin 125 mcg tablet 125 mcg PO DAILY RF: 0 albuterol sulfate [ProAir HFA] 90 mcg/actuation Hfa Aerosol Inhaler 2 puff Inhalation Q4H PRN (Reason: Shortness Of Breath) RF: 0 ondansetron 4 mg tablet,disintegrating 4 mg PO Q8H PRN (Reason: Nausea) RF: 0 fluticasone furoate 27.5 mcg/actuation [place],Suspension 1 - 2 spray INTRANASAL BID RF: 0 cholecalciferol (vitamin D3) [Vitamin D3] 5,000 unit Tablet 5,000 unit PO DAILY RF: 0 chlorthalidone 25 mg tablet 12.5 mg PO DAILY RF: 0 diltiazem HCl 60 mg tablet 60 mg PO TID PRN (Reason: Angina) RF: 0 lacosamide 200 mg tablet 200 mg PO BID RF: 0 potassium chloride 20 mEq Tablet,Er Particles/Crystals 40 meq PO DAILY RF: 0 Qvar RediHaler 80 mcg/actuation Hfa Aerosol Breath Activated 1 puff inhalation BID RF: 0 torsemide 20 mg tablet 40 mg PO DAILY Qty: 0 RF: 0 bumetanide 1 mg tablet 1 mg PO DAILY Qty: 0 RF: 0 Other Ambulatory Orders: Basic Metabolic Panel (Routine) Timeframe: 2 Days Location: Laboratory Ordered By: Lynnette Gayle Provider Discharge Instructions Diet: Low-fat, Low-sodium and Low-cholesterol Activity: Activity as tolerated Visit Report/Discharge Packet Instructions: The Mediterranean Diet and Good Health, The DASH Diet, Relaxation Therapies (Alternative Therapy), DI for Obstructive Sleep Apnea -- Adult Discharge Data Attending Provider: Lynnette Gayle Admit Date/Time: 09/04/18 18:22 Discharges patient from system. Discharge Date/Time: 09/06/18 17:40
[2018-09-06] MEDS: HEPARIN 5,000 UNIT/ML VIAL 5000 UNIT SUBCUT (11:18)
[2018-09-06 11:47] LABS: Magnesium 2.3 mg/dL (1.6-2.3)
[2018-09-06 12:00] VITALS: BP 99/71; PULSE 70; RESP 18; TEMP 36.6; O2SAT 98
[2018-09-06 15:54] VITALS: BP 130/84; PULSE 76; RESP 16; TEMP 37.1; O2SAT 94
--- NOTE | 2018-09-06 16:37 | PC.NURSE ---
1600 pt awake and alert. pt awaiting completion of IV before DC. Denies any needs/questions. call light in reach and pt instructed to use for needs and prior to activity for SBA.
--- NOTE | 2018-09-12 11:22 | PC.NURSE ---
Late entry: Potassium Chloride 60meq in Sodium Chloride 0.9% stopped 09/06 at 1645 Furosemide 100mg in Sodium Chloride 0.9% stopped 09/06 1054
== END 2018-09-06 17:40 | disposition home or self-care (01) ==
LOC: ED 18:18 → AC 18:54
PROVIDERS: Internal Medicine; Nurse Practitioner Gerontology; Admitting Provider Internal Medicine; Emergency Provider Emergency Medicine; Visit Provider Internal Medicine
DX: I11.0 Hypertensive heart disease with heart failure (principal); I50.33 Acute on chronic diastolic (congestive) heart failure; E66.01 Morbid (severe) obesity due to excess calories; Z68.43 Body mass index [BMI] 50.0-59.9, adult; E87.6 Hypokalemia; G40.909 Epilepsy, unspecified, not intractable, without status epilepticus; I49.5 Sick sinus syndrome; E86.1 Hypovolemia; Z95.0 Presence of cardiac pacemaker; N20.0 Calculus of kidney; G47.33 Obstructive sleep apnea (adult) (pediatric)
CPT/HCPCS: 36415; 36591; 71046; 71275; 80048; 80053; 80061; 81001; 83036; 83605; 83735; 83880; 84145; 84443; 84484; 85025; 85379; 93005; 93306; 94640; 94760; 96361; 96365; 96366; 96372; 96375; 99284; 99285; G0378; J1644; J1940; J3480; Q9967

== ENCOUNTER 2018-10-09 23:03 | Emergency (ER) | payer OTHER, MEDICAID, SELFPAY ==
[2018-09-15 08:59] VITALS: BMI 48.2
[2018-10-09 23:06] VITALS: BP 125/73; PULSE 75; RESP 15; TEMP 37.2; O2SAT 99; BMI 47.0
[2018-10-09 23:47] LABS: Add Manual Diff / Slide Review NO; Basophils Absolute Auto 100 /uL (0-100); Basophils Percent Auto 0.5 % (0-2); Eosinophils Absolute Auto 200 /uL (0-450); Eosinophils Percent Auto 1.8 % (2-4); Hematocrit 40.4 % (36-46); Lymphocytes Absolute Auto 3900 /uL (1100-4500); Lymphocytes Percent Auto 35.9 % (25-40); Mean Corpuscular HGB Conc 34.5 % (30-36); Mean Corpuscular Hemoglobin 29.5 PG (26-34); Mean Corpuscular Volume 85.4 fL (80-100); Monocytes Absolute Auto 900 /uL (0-900); Monocytes Percent Auto 8.2 % (3-14); Neutrophils Absolute Auto 5800 /uL (1500-7000); Neutrophils Percent Auto 53.6 % (50-75); Platelet Count 381 X10^3/uL (150-400); Red Blood Cell Count 4.73 X10^6/uL (4.0-5.2); White Blood Cell Count 10.8 X10^3/uL (4.5-11.0)
[2018-10-09 23:51] LABS: BUN Creatinine Ratio 27.5 (6-22); Blood Urea Nitrogen 22 mg/dL (7-17); Calcium 9.2 mg/dL (8.4-10.2); Chloride 84 mmol/L (98-107); Estimated Glomerular Filt Rate > 60.0 mL/min (>60); Glucose 118 mg/dL (70-100); HEMOLYSIS < 15 (0-50); Sodium 139 mmol/L (137-145)
[2018-10-09 23:53] LABS: Potassium 2.3 mmol/L (3.4-5.1)
[2018-10-10] VITALS (7 sets, daily range): BP systolic 109–123; BP diastolic 63–75; PULSE 60–67; RESP 12–20; TEMP 36.7; O2SAT 95–100
[2018-10-10] LABS: Carbon Dioxide 44 mmol/L (22-32)
--- NOTE | 2018-10-10 | ED_ITS ---
HPI - Recheck/Abnormal Lab/Rx General Chief Complaint: Recheck/Abnormal Lab/Rx Stated Complaint: MD sent critical labs Time Seen by Provider: 10/09/18 23:21 Source: patient Mode of arrival: ambulatory Limitations: no limitations History of Present Illness HPI narrative: Patient is a 33-year-old female with history of cardiomyopathy, CHF an arrhythmia presenting from her PCP with outpatient abnormal blood work. She is has been having blood work weekly. They have been adjusting her diuretics. She is on spironolactone and to Ro some I would. She actually stopped the torsemide herself about 3 days ago because she did not feel like she had any more so her. Last few days she has felt for fatigued and has had some cramping as well. Showed 2.8 and a bicarb of 43. She really denies any chest pain heart palpitations or shortness of breath. She is concerned because her primary was concerned with her abnormal blood work. She says that she has been struggling with potassium. She was admitted here in August with diastolic heart failure. She states that she does not feel like she has fluid on her lungs and her edema is significantly improving that is why she stopped taking her to O some might. She has continue to take the spironolactone. MD complaint: abnormal lab Related Data Home Medications Medication Instructions Recorded Confirmed albuterol sulfate [ProAir HFA] 2 puff INHALATION Q4H PRN 07/27/17 09/04/18 cetirizine 10 mg PO DAILY 07/27/17 09/04/18 cholecalciferol (vitamin D3) 5,000 unit PO DAILY 07/27/17 09/04/18 [Vitamin D3] digoxin 125 mcg PO DAILY 07/27/17 09/04/18 fluticasone furoate 1 - 2 spray INTRANASAL BID 07/27/17 09/04/18 levetiracetam 1,000 mg PO BID 07/27/17 09/04/18 montelukast 10 mg PO DAILY 07/27/17 09/04/18 ondansetron 4 mg PO Q8H PRN 07/27/17 09/04/18 sertraline 150 mg PO DAILY 07/27/17 09/04/18 Qvar RediHaler 1 puff INHALATION BID 09/04/18 09/04/18 chlorthalidone 12.5 mg PO DAILY 09/04/18 09/04/18 diltiazem HCl 60 mg PO TID PRN 09/04/18 09/04/18 lacosamide 200 mg PO BID 09/04/18 09/04/18 potassium chloride 40 meq PO DAILY 09/04/18 09/04/18 Previous Rx's Medication Instructions Recorded bumetanide 1 mg PO DAILY #0 tab 09/06/18 torsemide 40 mg PO DAILY #0 tab 09/06/18 Allergies Allergy/AdvReac Type Severity Reaction Status Date / Time hydrocodone [HYDROCODONE] Allergy Severe HIVES Verified 09/04/18 15:18 adhesive tape Allergy Intermediate Verified 09/04/18 15:18 latex Allergy Intermediate Verified 09/04/18 15:18 levofloxacin [LEVOFLOXACIN] AdvReac Mild STOMACH Verified 09/04/18 15:18 ISSUES miracle liam plant food Allergy anaphylaxis Uncoded 09/04/18 15:18 with contact Review of Systems Review of Systems ROS Unobtainable: All systems reviewed & are unremarkable except as noted in HPI and below Constitutional Denies chills, Denies fever(s) and Reports weakness Eyes Denies change in vision, Denies eye discharge, Denies irritation and Denies loss of vision ENT Ears, Nose, Mouth, and Throat: Denies change in voice, Denies neck pain and Denies sore throat Cardiovascular Denies chest pain, Denies irregular heart rhythm, Denies lightheadedness, Denies palpitations, Denies dyspnea, Denies dyspnea on exertion and Denies orthopnea Respiratory Denies cough, Denies dyspnea, Denies dyspnea on exertion and Denies wheezing Gastrointestinal Gastrointestinal: Denies abdominal pain, Denies change in bowel habits, Denies diarrhea, Denies nausea and Denies vomiting Genitourinary Denies hematuria, Denies flank pain, Denies urinary incontinence and Denies urinary urgency Musculoskeletal Denies neck pain Integumentary/Breasts Denies pruritus, Denies erythema, Denies rash and Denies wounds Neurologic Denies loss of vision and Reports weakness Endocrine Denies palpitations Allergic/Immunologic Denies wheezing [facility] Medical History Cardiomyopathy (Chronic) Congestive heart failure (Chronic) Epilepsy (Chronic) Hypertension (Chronic) IBS (irritable bowel syndrome) (Chronic) Morbid obesity (Chronic) Nephrolithiasis (Chronic) PCOS (polycystic ovarian syndrome) (Chronic) Tachy-beth syndrome (Chronic) Surgical History Pacemaker (Chronic) Family History (Updated 09/05/18 @ 01:14 by LO Bustillos) Father Nephrolithiasis Social History household members: family and children Smoking Status: Never smoker alcohol intake: never Family History Father Nephrolithiasis Social History household members: family and children Smoking Status: Never smoker alcohol intake: never Exam Initial Vital Signs Initial Vital Signs: Vital Signs Temperature 98.9 F 10/09/18 23:06 Pulse Rate 75 10/09/18 23:06 Respiratory Rate 15 10/09/18 23:06 Blood Pressure 125/73 10/09/18 23:06 Pulse Oximetry 99 10/09/18 23:06 GENERAL: Awake alert pleasant overweight female and in [no acute] distress. HEENT: Head atraumatic,EOMI, pupils reactive, face symmetric, CARDIOVASCULAR: Regular rate and rhythm without murmurs, rubs or gallops. RESPIRATORY: Breath sounds equal bilaterally, no wheezes rales or rhonchi. ABDOMEN: Soft, nontender. Normoactive bowel sounds all 4 quadrants. No guarding or rebound. EXTREMITIES: Normal range of motion, no clubbing or edema. Neurovascularly intact NEUROLOGICAL: Alert and oriented x4.Normal gait and speech. Cranial nerves II through XII grossly intact. SKIN: Warm, dry, no laceration, no petechiae, no rashes or lesions. Course Orders Ordered: ED Orders 10/09/18 23:30 Basic Metabolic Panel Stat Complete Blood Count AUTO DIFF Stat Discontinued Medications Sodium Chloride (Normal Saline 0.9%) 500 mls @ 1,000 mls/hr IV BOLUS ONE Stop: 10/10/18 00:28 Last Infusion: 10/10/18 00:59 Dose: 0 mls/hr Admin: 10/10/18 00:10 Dose: 1,000 mls/hr Potassium Chloride 40 meq/ (Sodium Chloride) 520 mls @ 130 mls/hr IV NOW ONE Stop: 10/10/18 03:58 Last Infusion: 10/10/18 05:20 Dose: 0 mls/hr Admin: 10/10/18 00:54 Dose: 130 mls/hr Potassium Chloride (Klor-Con M20) 40 meq PO NOW ONE Stop: 10/10/18 00:00 Last Admin: 10/10/18 00:54 Dose: 40 meq Vital Signs - 8 hr 10/09/18 23:06 10/10/18 01:51 10/10/18 02:30 Temperature 98.9 F Pulse Rate 75 63 61 Respiratory Rate 15 20 20 Blood Pressure 125/73 Blood Pressure [Left Arm] 117/75 123/74 Pulse Oximetry 99 98 97 10/10/18 03:00 10/10/18 03:53 10/10/18 04:30 Temperature Pulse Rate 62 67 67 Respiratory Rate 19 17 12 Blood Pressure Blood Pressure [Left Arm] 109/64 117/63 119/72 Pulse Oximetry 95 97 97 10/10/18 05:01 10/10/18 05:23 Temperature 98.0 F Pulse Rate 62 60 Respiratory Rate 13 12 Blood Pressure Blood Pressure [Left Arm] 113/75 113/75 Pulse Oximetry 97 100 MDM - Recheck/Abnormal Lab/Rx Lab Data Attestation: I reviewed the patient's lab results. Result diagrams: 10/09/18 23:30 10/09/18 23:30 Lab Results 10/09/18 10/09/18 Range/Units 23:30 23:30 WBC 10.8 (4.5-11.0) X10^3/uL RBC 4.73 (4.0-5.2) X10^6/uL Hgb 14.0 (12.0-16.0) g/dL Hct 40.4 (36-46) % MCV 85.4 (80-100) fL MCH 29.5 (26-34) PG MCHC 34.5 (30-36) % RDW 13.0 (11.6-14.8) % Plt Count 381 (150-400) X10^3/uL Neut % (Auto) 53.6 (50-75) % Lymph % (Auto) 35.9 (25-40) % Garden % (Auto) 8.2 (3-14) % Eos % (Auto) 1.8 L (2-4) % Baso % (Auto) 0.5 (0-2) % Neut # (Auto) 5800 (0595-8393) /uL Lymph # (Auto) 3900 (4065-7865) /uL [place] # (Auto) 900 (0-900) /uL Eos # (Auto) 200 (0-450) /uL Baso # (Auto) 100 (0-100) /uL Sodium 139 (137-145) mmol/L Potassium 2.3 L* (3.4-5.1) mmol/L Chloride 84 L (98-107) mmol/L Carbon Dioxide 44 H* (22-32) mmol/L BUN 22 H (7-17) mg/dL Creatinine 0.80 (0.52-1.04) mg/dL Estimated GFR > 60.0 (>60) mL/min BUN/Creatinine Ratio 27.5 H (6-22) Glucose 118 H (70-100) mg/dL Calcium 9.2 (8.4-10.2) mg/dL ECG Data Attestation: I personally reviewed and interpreted this ECG as follows: Prior ECG tracings: available for review Interpretation: T-wave inversion noted in lead 3 as seen in previous EKG in 2018. No ST elevations T-wave inversion also noted in V3. PA interval 164 QRS 116 QTC 420. MDM Narrative Medical decision making narrative: The patient is previous bicarb was 37. Today is slightly elevated at 44 likely due to some slight dehydration from her diuretics. Potassium has decreased his from her labs earlier today. She will require IV replacement and oral replacement. She is given a small 500 mL bolus of saline to help with some hydration, but not too much to avoid exacerbation of congestive heart failure. I discussed with her having her blood work rechecked by her PCP this week. Discharge Plan Departure Patient Disposition: Home Clinical Impression: Dehydration, Acute hypokalemia Discharge Date/Time: 10/10/18 05:32 Interventions: ED Discharge Assessment Last Done: 10/10/18 05:31 Instructions: DI for Hypokalemia Activity Restrictions/Additional Instructions: *You have been diagnosed with hypokalemia and dehydration *What to do: Today your blood work did show some electrolyte abnormalities this is likely due to your diuretic medication. You will need to have her labs rechecked with her PCP. You were given a total of 80 mEq in the emergency department today 40 through the IV and 40 by mouth. Her medications will likely need to be adjusted year by her PCP or your optical manager. However for now continue taking as prescribed. *Continue to take medications as directed *Follow up with your primary care provider in 2-3 days *Return to ER if you should have increasing weakness, chest pain shortness of breath passing out or any new, worsening or concerning symptoms Prescriptions: No Action cetirizine 10 mg Tablet 10 mg PO DAILY RF: 0 levetiracetam 500 mg tablet 1,000 mg PO BID RF: 0 sertraline 100 mg tablet 150 mg PO DAILY RF: 0 montelukast 10 mg tablet 10 mg PO DAILY RF: 0 digoxin 125 mcg tablet 125 mcg PO DAILY RF: 0 albuterol sulfate [ProAir HFA] 90 mcg/actuation Hfa Aerosol Inhaler 2 puff Inhalation Q4H PRN (Reason: Shortness Of Breath) RF: 0 ondansetron 4 mg tablet,disintegrating 4 mg PO Q8H PRN (Reason: Nausea) RF: 0 fluticasone furoate 27.5 mcg/actuation [place],Suspension 1 - 2 spray INTRANASAL BID RF: 0 cholecalciferol (vitamin D3) [Vitamin D3] 5,000 unit Tablet 5,000 unit PO DAILY RF: 0 chlorthalidone 25 mg tablet 12.5 mg PO DAILY RF: 0 diltiazem HCl 60 mg tablet 60 mg PO TID PRN (Reason: Angina) RF: 0 lacosamide 200 mg tablet 200 mg PO BID RF: 0 potassium chloride 20 mEq Tablet,Er Particles/Crystals 40 meq PO DAILY RF: 0 Qvar RediHaler 80 mcg/actuation Hfa Aerosol Breath Activated 1 puff inhalation BID RF: 0 torsemide 20 mg tablet 40 mg PO DAILY Qty: 0 RF: 0 bumetanide 1 mg tablet 1 mg PO DAILY Qty: 0 RF: 0 Referrals: Rodríguez Aponte MD [Non-Staff] -
[2018-10-10] MEDS: SODIUM CHLORIDE 0.9% 500 ML 1000 ML IV (00:10)
[2018-10-10] MEDS: POTASSIUM CHLORIDE 20 MEQ TAB 40 MEQ PO (00:54)
[2018-10-10] MEDS: POTASSIUM CHLORIDE 40 MEQ in SODIUM CHLORIDE 0.9% 500 ML 130 ML IV (00:54)
== END 2018-10-10 05:32 | disposition home or self-care (01) ==
PROVIDERS: Emergency Provider Emergency Medicine
DX: E86.0 Dehydration (principal); E87.6 Hypokalemia; I50.9 Heart failure, unspecified
CPT/HCPCS: 36591; 80048; 85025; 93005; 96361; 96365; 96366; 99284; J3480

== ENCOUNTER → 2018-10-23 16:16 | Outpatient (CLI) | payer OTHER, MEDICAID, SELFPAY ==
[2018-09-15 08:59] VITALS: BMI 48.2
[2018-10-23 17:42] LABS: Blood Urea Nitrogen 18 mg/dL (7-17); Calcium 10.5 mg/dL (8.4-10.2); Carbon Dioxide 35 mmol/L (22-32); Chloride 88 mmol/L (98-107); Estimated Glomerular Filt Rate > 60.0 mL/min (>60); Glucose 137 mg/dL (70-100); HEMOLYSIS < 15 (0-50); Potassium 3.1 mmol/L (3.4-5.1); Sodium 138 mmol/L (137-145)
== END ==
PROVIDERS: PCP Student in an Organized Health Care Education/Training Program; Visit Provider Student in an Organized Health Care Education/Training Program
DX: E87.6 Hypokalemia (principal)
CPT/HCPCS: 36415; 80048

== ENCOUNTER 2019-02-21 18:51 | Emergency (ER) | payer OTHER, MEDICAID, SELFPAY ==
[2018-12-14 10:36] VITALS: BMI 48.2
[2019-02-21 19:05] VITALS: BP 132/89; PULSE 88; RESP 20; TEMP 37.1; O2SAT 100; BMI 47.7
[2019-02-21 19:45] VITALS: BP 128/61; PULSE 88; RESP 16; O2SAT 100
[2019-02-21 19:54] LABS: Add Manual Diff / Slide Review NO; Basophils Absolute Auto 100 /uL (0-100); Basophils Percent Auto 0.5 % (0-2); Eosinophils Absolute Auto 200 /uL (0-450); Eosinophils Percent Auto 1.4 % (2-4); Hematocrit 39.5 % (36-46); Hemoglobin 13.1 g/dL (12.0-16.0); Lymphocytes Absolute Auto 3100 /uL (1100-4500); Lymphocytes Percent Auto 21.4 % (25-40); Mean Corpuscular HGB Conc 33.1 % (30-36); Mean Corpuscular Hemoglobin 29.1 PG (26-34); Mean Corpuscular Volume 87.9 fL (80-100); Monocytes Absolute Auto 800 /uL (0-900); Monocytes Percent Auto 5.4 % (3-14); Neutrophils Absolute Auto 10300 /uL (1500-7000); Neutrophils Percent Auto 71.3 % (50-75); Platelet Count 482 X10^3/uL (150-400); Red Blood Cell Count 4.49 X10^6/uL (4.0-5.2); Red Cell Distribution Width 13.6 % (11.6-14.8); White Blood Cell Count 14.4 X10^3/uL (4.5-11.0)
[2019-02-21 20:07] LABS: BUN Creatinine Ratio 23.8 (6-22); Blood Urea Nitrogen 19 mg/dL (7-17); Calcium 9.5 mg/dL (8.4-10.2); Carbon Dioxide 33 mmol/L (22-32); Chloride 97 mmol/L (98-107); Estimated Glomerular Filt Rate > 60.0 mL/min (>60); Glucose 103 mg/dL (70-100); HEMOLYSIS < 15 (0-50); Sodium 138 mmol/L (137-145)
[2019-02-21 20:19] LABS: Troponin I < 0.012 ng/mL (0.01-0.034)
[2019-02-21 20:39] VITALS: BP 135/77; PULSE 95; RESP 25; O2SAT 100
--- NOTE | 2019-02-21 20:59 | DI.CT.S_ITS ---
PROCEDURE: CT CERVICAL SPINE WO CON INDICATIONS: neck pain, presyncope/fall, landed on back TECHNIQUE: Noncontrast 3 mm thick sections acquired from the skull base to the T4 level. Sagittal and coronal reformats were then constructed. For radiation dose reduction, the following was used: automated exposure control, adjustment of mA and/or kV according to patient size. COMPARISON: None. FINDINGS: Image quality: Excellent. Bones: No fractures or dislocations. Visualized superior ribs are intact. Soft tissues: Prevertebral soft tissues are normal in thickness. No paravertebral hematomas. No apical pneumothoraces. IMPRESSION: No cervical spine fractures. Dictated by: Sarah Tellez M.D. on 02/22/2019 at 7:35 Approved by: Sarah Tellez M.D. on 02/22/2019 at 7:36
--- NOTE | 2019-02-21 20:59 | DI.CT.S_ITS ---
PROCEDURE: CT HEAD/BRAIN WO CON INDICATIONS: fall/presyncope, fall, no LOC, seizure hx TECHNIQUE: Noncontrast 4.5 mm thick angled axial sections acquired from the foramen magnum to the vertex, with coronal and sagittal reformats. For radiation dose reduction, the following was used: automated exposure control, adjustment of mA and/or kV according to patient size. COMPARISON: [facility], CT, HEAD WITHOUT CONTRAST, 08/06/2015, 12:24. FINDINGS: Image quality: Excellent. CSF spaces: Basal cisterns are patent. No extra-axial fluid collections. Ventricles are normal in size and shape. Brain: No midline shift. No intracranial masses or hemorrhage. Dunham-white matter interface is normal. Skull and face: Calvarium and visualized facial bones are intact, without suspicious lesions. Sinuses: Visualized sinuses and mastoids are clear. IMPRESSION: 1. No acute intracranial abnormalities. Dictated by: Sarah Tellez M.D. on 02/22/2019 at 7:33 Approved by: Sarah Tellez M.D. on 02/22/2019 at 7:34
--- NOTE | 2019-02-21 20:59 | ED.SYNCOPE ---
HPI - Syncope General Chief Complaint: Syncope Stated Complaint: Back & neck pain s/p fall down stairs Time Seen by Provider: 02/21/19 19:44 Source: patient and family Mode of arrival: Ambulatory Limitations: no limitations History of Present Illness HPI narrative: This is a 33-year-old female who comes to the emergency department with complaint of fall/presyncopal episode. Patient states she was walking up 2 stairs and she got to the top felt lightheaded/dizzy and had a episode where she passed out. She states she did not totally lose consciousness she fell backwards about 2 steps onto the concrete ground floor. She states that her neck started hurting and when she rolled to get up she had tingling in her fingers on both sides and pain radiating into both shoulders. Patient states that she did think she hit her head, she was nauseated just before and continues to have a little but no vomiting. She denies any vision changes. She denies any other injuries. She denies any loss of bowel or bladder control. Patient has a history of seizures, states she takes Keppra and Vimpat, diastolic CHF with a pacemaker placed in the early with sinus node dysfunction, chronic kidney disease and has a daughter with a mitochondrial disease. Patient states besides a pacemaker she has had tonsillectomy, total hysterectomy, endometrial ablation and a . She is requesting ibuprofen for pain. She states she is able to lift her arms and does not feel like there week. Related Data Home Medications Medication Instructions Recorded Confirmed albuterol sulfate [ProAir HFA] 2 puff INHALATION Q4H PRN 07/27/17 12/14/18 cetirizine 10 mg PO DAILY 07/27/17 12/14/18 cholecalciferol (vitamin D3) 5,000 unit PO DAILY 07/27/17 12/14/18 [Vitamin D3] digoxin 125 mcg PO DAILY 07/27/17 12/14/18 montelukast 10 mg PO DAILY 07/27/17 12/14/18 sertraline 150 mg PO DAILY 07/27/17 12/14/18 Qvar RediHaler 1 puff INHALATION BID 09/04/18 12/14/18 chlorthalidone 12.5 mg PO DAILY 09/04/18 09/04/18 lacosamide 200 mg PO BID 09/04/18 12/14/18 potassium chloride 40 meq PO DAILY 09/04/18 12/14/18 diltiazem HCl 120 mg 120 mg PO DAILY 12/14/18 12/14/18 capsule,extended release 24 hr fluticasone propionate 50 1 spray NASAL BID 12/14/18 12/14/18 mcg/actuation nasal spray,suspension levetiracetam 500 mg tablet 500 - 1,000 mg PO BID tab 12/14/18 12/14/18 ondansetron 4 mg disintegrating 4 mg PO Q6H PRN tab 12/14/18 12/14/18 tablet Previous Rx's Medication Instructions Recorded bumetanide 1 mg PO DAILY #0 tab 09/06/18 torsemide 40 mg PO DAILY #0 tab 09/06/18 Allergies Allergy/AdvReac Type Severity Reaction Status Date / Time hydrocodone [HYDROCODONE] Allergy Severe HIVES Verified 02/21/19 19:04 adhesive tape Allergy Intermediate Verified 02/21/19 19:04 latex Allergy Intermediate Verified 02/21/19 19:04 sulfamethoxazole Allergy Verified 02/21/19 19:04 [From Bactrim] trimethoprim [From Bactrim] Allergy Verified 02/21/19 19:04 levofloxacin [LEVOFLOXACIN] AdvReac Mild STOMACH Verified 02/21/19 19:04 ISSUES miracle liam plant food Allergy anaphylaxis Uncoded 02/21/19 19:04 with contact Review of Systems Review of Systems ROS Unobtainable: All systems reviewed & are unremarkable except as noted in HPI and below Patient History Medical History Cardiomyopathy (Chronic) Congestive heart failure (Chronic) Epilepsy (Chronic) Hypertension (Chronic) IBS (irritable bowel syndrome) (Chronic) Morbid obesity (Chronic) Nephrolithiasis (Chronic) PCOS (polycystic ovarian syndrome) (Chronic) Tachy-beth syndrome (Chronic) Surgical History Pacemaker (Chronic) Family History Father Nephrolithiasis Social History household members: family and children Smoking Status: Never smoker alcohol intake: never alcohol intake frequency: 0-2 drinks per day Substance Use Type: does not use Exam Narrative Exam Narrative: GEN: C-collar in ED,. Patient appears in moderate distress. HEAD: No evidence of trauma, no raccoon/Anthony sign. NECK: Nontender, painless range of motion, trachea midline Positive Nexus criteria, there is mid line tenderness, no distracting injury, altered mental status, neuro deficit, recent EtOH. EYES: PERRLA, EOMI ENT: External inspection normal, trachea is midline, TM's are normal no hemotypanum, Nares are clear, no septal hematoma, no dental or oral injury, airway is normal and with normal occlusion, No bony tenderness RESP: Chest is nontender and has symmetric movement, no ecchymosis, breath sounds are normal no crackles, wheezes or rales CVS: Heart sounds are normal, no murmur noted, No JVD. ABG/GI: Nontender, soft, normal bowel sounds, no distention, no organomegaly, pelvic rock is part negative NEURO: Oriented AOx3, neuro is grossly intact, sensation and motor is normal all 4 extremities moving, cranial nerves II through XII are intact, GCS is 15 PSYCH: Normal mood and affect SKIN: Intact, warm and dry, no crepitus and without decubitus BACK: No CVA tenderness, no vertebral tenderness, patient has generalized tenderness to her upper back and throughout the scapular region on both sides, no crepitus and patient does have full range of motion. No step-off's, no crepitus EXT: Atraumatic, hips are nontender, no pedal edema, normal color and temperature, normal range of motion of extremities with normal tendon exam, 2+ pulses in all four extremities Initial Vital Signs Initial Vital Signs: Vital Signs Temperature 98.7 F 02/21/19 19:05 Pulse Rate 88 02/21/19 19:05 Respiratory Rate 20 02/21/19 19:05 Blood Pressure 132/89 02/21/19 19:05 Pulse Oximetry 100 02/21/19 19:05 Scores GCS Kingsley coma scale eye opening: Spontaneous Gilbert coma scale verbal response: Orientated Kingsley coma scale motor response: Obey commands Kingsley coma scale total score: 15 Course Orders Ordered: ED Orders 02/21/19 19:11 EKG-12 Lead Stat 02/21/19 19:20 EKG-12 Lead Routine 02/21/19 19:45 Basic Metabolic Panel Stat Complete Blood Count AUTO DIFF Stat Troponin I Stat 02/21/19 20:59 CT cervical spine wo con Stat CT head/brain wo con Stat 02/21/19 21:02 XR chest 1V Stat Discontinued Medications Ibuprofen (Advil) 800 mg PO NOW ONE Stop: 02/21/19 21:00 Last Admin: 02/21/19 21:07 Dose: 800 mg Documented by: AMADOU Vital Signs Vital signs: Vital Signs - 8 hr 02/21/19 19:45 02/21/19 20:39 02/21/19 21:07 Pulse Rate 88 95 H 83 Respiratory Rate 16 25 H 23 Blood Pressure 128/61 Blood Pressure [Right Wrist] 135/77 128/61 Pulse Oximetry 100 100 100 02/21/19 21:51 02/21/19 23:44 Pulse Rate 79 84 Respiratory Rate 19 16 Blood Pressure 128/57 L Blood Pressure [Right Wrist] 133/71 Pulse Oximetry 100 99 MDM - Syncope Lab Data Attestation: I reviewed the patient's lab results. Result diagrams: 02/21/19 19:45 02/21/19 19:45 Labs: Lab Results 02/21/19 02/21/19 Range/Units 19:45 19:45 WBC 14.4 H (4.5-11.0) X10^3/uL RBC 4.49 (4.0-5.2) X10^6/uL Hgb 13.1 (12.0-16.0) g/dL Hct 39.5 (36-46) % MCV 87.9 (80-100) fL MCH 29.1 (26-34) PG MCHC 33.1 (30-36) % RDW 13.6 (11.6-14.8) % Plt Count 482 H (150-400) X10^3/uL Neut % (Auto) 71.3 (50-75) % Lymph % (Auto) 21.4 L (25-40) % [place] % (Auto) 5.4 (3-14) % Eos % (Auto) 1.4 L (2-4) % Baso % (Auto) 0.5 (0-2) % Neut # (Auto) 46249 H (9969-7574) /uL Lymph # (Auto) 3100 (0425-9371) /uL [place] # (Auto) 800 (0-900) /uL Eos # (Auto) 200 (0-450) /uL Baso # (Auto) 100 (0-100) /uL Sodium 138 (137-145) mmol/L Potassium 4.0 (3.4-5.1) mmol/L Chloride 97 L (98-107) mmol/L Carbon Dioxide 33 H (22-32) mmol/L BUN 19 H (7-17) mg/dL Creatinine 0.80 (0.52-1.04) mg/dL Estimated GFR > 60.0 (>60) mL/min BUN/Creatinine Ratio 23.8 H (6-22) Glucose 103 H (70-100) mg/dL Calcium 9.5 (8.4-10.2) mg/dL Troponin I < 0.012 (0.01-0.034) ng/mL Point of Care Testing Glucose POC [address] scan - head: Radiologist's impression: No acute intracranial pathology, no intracranial mass hemorrhage or acute infarct CT Cspine: Radiologist's impression: No acute evidence of fracture or subluxation. No paraspinal hematoma. Chest x-ray: My impression: nap, pacemaker leads appear in place. ECG Data Attestation: I personally reviewed and interpreted this ECG as follows: Prior ECG tracings: available for review Interpretation: Sinus rhythm with sinus arrhythmia. Rate 87 ME 144 QRS of 102 and QTC of 394. Patient has EKG that appears similar from 10/09/2018 [facility] Narrative Medical decision making narrative: Patient seen in the department initially quite tender on exam. She did have a fall directly on her back and complained of some tingling in her fingers of CT of the neck as well as head was ordered and chest x-ray. Patient had what sounded like a presyncopal episode which she has intermittently. She did not have any seizure-like activity. Her lab does not show major abnormalities, chest x-ray does not show any major abnormalities, EKG appears similar to priors. Patient was able to be clinically cleared after CT imaging was reviewed. Patient had requested dose of ibuprofen and found this somewhat helpful. We discussed treatment for symptomatic care signs symptoms to watch for and reasons to return emergently and she felt comfortable with this plan. Discharge Plan Departure Patient Disposition: Home Clinical Impression: Fall, Cervical strain Discharge Date/Time: 02/21/19 23:46 Instructions: DI for Cervical Muscle Strain Activity Restrictions/Additional Instructions: Follow-up with your physicians in the next week for recheck. You may continue ibuprofen up to 800 mg every 8 hours as needed, or Tylenol up to a 1000 mg every 8 hours as needed. I would also recommend moist heat to the affected area, hot showers or heat packs. Return to the emergency department for new weakness, numbness, loss of sensation, new changes, new chest pain, shortness of breath, persistent vomiting or other new or concerning symptoms. Prescriptions: No Action cetirizine 10 mg Tablet 10 mg PO DAILY RF: 0 sertraline 100 mg tablet 150 mg PO DAILY RF: 0 montelukast 10 mg tablet 10 mg PO DAILY RF: 0 digoxin 125 mcg tablet 125 mcg PO DAILY RF: 0 albuterol sulfate [ProAir HFA] 90 mcg/actuation Hfa Aerosol Inhaler 2 puff Inhalation Q4H PRN (Reason: Shortness Of Breath) RF: 0 cholecalciferol (vitamin D3) [Vitamin D3] 5,000 unit Tablet 5,000 unit PO DAILY RF: 0 ondansetron 4 mg tablet,disintegrating 4 mg PO Q6H PRN (Reason: Nausea) RF: 0 levetiracetam 500 mg tablet 500 - 1,000 mg PO BID RF: 0 chlorthalidone 25 mg tablet 12.5 mg PO DAILY RF: 0 lacosamide 200 mg tablet 200 mg PO BID RF: 0 potassium chloride 20 mEq Tablet,Er Particles/Crystals 40 meq PO DAILY RF: 0 Qvar RediHaler 80 mcg/actuation Hfa Aerosol Breath Activated 1 puff inhalation BID RF: 0 torsemide 20 mg tablet 40 mg PO DAILY Qty: 0 RF: 0 bumetanide 1 mg tablet 1 mg PO DAILY Qty: 0 RF: 0 fluticasone propionate [Allergy Relief (fluticasone)] 50 mcg/actuation spray,suspension 1 spray NASAL BID RF: 0 diltiazem HCl 120 mg capsule,extended release 24hr 120 mg PO DAILY RF: 0 Referrals: Charo Velásquez MD [Primary Care Provider] -
--- NOTE | 2019-02-21 21:02 | DI.RAD.S_ITS ---
PROCEDURE: XR CHEST 1V INDICATIONS: fall/presyncope TECHNIQUE: One view of the chest was acquired. COMPARISON: [facility], CT, CT ANGIO CHEST PE PROTOCOL, 09/05/2018, 16:48. [facility], CR, XR CHEST 2V, 09/04/2018, 15:28. [facility], CR, XR CHEST 1 VIEW, 10/17/2018, 17:02. [facility], CR, XR CHEST 1 VIEW, 12/19/2018, 20:49. FINDINGS: Surgical changes and devices: There is a cardiac pacemaker in appropriate position. Lungs and pleura: Lungs are clear. No pleural effusions or pneumothorax. Mediastinum: Mediastinal contours appear normal. Heart size is normal. Bones and chest wall: No suspicious bony lesions. Overlying soft tissues appear unremarkable. IMPRESSION: No acute cardiopulmonary disease. Dictated by: Sarah Tellez M.D. on 02/22/2019 at 8:28 Approved by: Sarah Tellez M.D. on 02/22/2019 at 8:29
[2019-02-21 21:07] VITALS: BP 128/61; PULSE 83; RESP 23; O2SAT 100
[2019-02-21] MEDS: IBUPROFEN 400 MG TABLET 800 MG PO (21:07)
[2019-02-21 21:51] VITALS: BP 133/71; PULSE 79; RESP 19; O2SAT 100
[2019-02-21 23:44] VITALS: BP 128/57; PULSE 84; RESP 16; O2SAT 99
== END 2019-02-21 23:46 | disposition home or self-care (01) ==
PROVIDERS: Emergency Provider Emergency Medicine; PCP Student in an Organized Health Care Education/Training Program
DX: S16.1XXA Strain of muscle, fascia and tendon at neck level, initial encounter (principal); S09.90XA Unspecified injury of head, initial encounter; R20.2 Paresthesia of skin; R55 Syncope and collapse; W10.9XXA Fall (on) (from) unspecified stairs and steps, initial encounter
CPT/HCPCS: 70450; 71045; 72125; 80048; 84484; 85025; 93005; 99283; 99285

== ENCOUNTER 2019-11-22 17:06 | Emergency (ER) | payer OTHER, MEDICAID, SELFPAY ==
[2018-12-14 10:36] VITALS: BMI 48.2
[2019-11-22 17:15] VITALS: BP 136/84; PULSE 78; RESP 19; TEMP 37.3; O2SAT 99; BMI 47.0
--- NOTE | 2019-11-22 18:22 | DI.RAD.S_ITS ---
PROCEDURE: XR CHEST 1V INDICATIONS: cough TECHNIQUE: One view of the chest was acquired. COMPARISON: [facility], CR, XR CHEST 1V, 02/21/2019, 22:06. FINDINGS: Surgical changes and devices: Pacemaker Lungs and pleura: Lungs are clear. No pleural effusions or pneumothorax. Mediastinum: Mediastinal contours appear normal. Heart size is normal. Bones and chest wall: No suspicious bony lesions. Overlying soft tissues appear unremarkable. IMPRESSION: No evidence acute pulmonary process. Dictated by: Markell Thayer M.D. on 11/22/2019 at 18:50 Approved by: Markell Thayer M.D. on 11/22/2019 at 18:50
--- NOTE | 2019-11-22 18:35 | ED_ITS ---
HPI - Recheck/Abnormal Lab/Rx <Anamaria PrakashLO - Last Filed: 11/22/19 20:40> General Chief Complaint: Recheck/Abnormal Lab/Rx Stated Complaint: STATES HIGH Co2 level Time Seen by Provider: 11/22/19 17:29 Source: patient Mode of arrival: Ambulatory Limitations: no limitations History of Present Illness HPI narrative: 34yo female with history of asthma, CHF, sick sinus node syndrome, and sleep apnea, presents to the emergency department because she was instructed by her primary care provider to be evaluated due to elevated CO2 levels. Patient states she has been seeing her primary care provider for a workup as she has had generalized vague symptoms over the past month which inclu de intermittent nausea, fatigue, increased napping, occasional vomiting, dry cough over the past month. Patient states she was originally evaluated and told to present to [facility] emergency department for elevated CO2, she was evaluated in the emergency department and sent home. She had a follow-up appointment scheduled for today which was canceled, however she was told her CO2 was further elevated she should be evaluated in the ED. Patient denies any worsening symptoms, states her nausea has actually improved. She has been taking ondansetron to help. She recently had a medication change as there was some concern about serotonin syndrome as she has intermittent hand tremor for the past month as well. Patient has been tested for COVID times over the past few weeks which have been negative. Patient denies any abdominal pain, high fevers, shortness of breath, chest pain, syncope, abdominal pain, or any other concerns at this time. 11/19/2019 patients CO2 levels appears to be 45 per records patient brought in. Related Data Home Medications Medication Instructions Recorded Confirmed albuterol sulfate [ProAir HFA] 2 puff INHALATION Q4H PRN 07/27/17 12/14/18 cetirizine 10 mg PO DAILY 07/27/17 12/14/18 cholecalciferol (vitamin D3) 5,000 unit PO DAILY 07/27/17 12/14/18 [Vitamin D3] digoxin 125 mcg PO DAILY 07/27/17 12/14/18 montelukast 10 mg PO DAILY 07/27/17 12/14/18 sertraline 150 mg PO DAILY 07/27/17 12/14/18 Qvar RediHaler 1 puff INHALATION BID 09/04/18 12/14/18 chlorthalidone 12.5 mg PO DAILY 09/04/18 09/04/18 lacosamide 200 mg PO BID 09/04/18 12/14/18 potassium chloride 40 meq PO DAILY 09/04/18 12/14/18 diltiazem HCl 120 mg 120 mg PO DAILY 12/14/18 12/14/18 capsule,extended release 24 hr fluticasone propionate 50 1 spray NASAL BID 12/14/18 12/14/18 mcg/actuation nasal spray,suspension levetiracetam 500 mg tablet 500 - 1,000 mg PO BID tab 12/14/18 12/14/18 ondansetron 4 mg disintegrating 4 mg PO Q6H PRN tab 12/14/18 12/14/18 tablet diltiazem HCl 120 mg 120 mg PO DAILY cap 04/18/19 04/18/19 capsule,extended release 12 hr spironolactone 25 mg tablet 25 mg PO DAILY 04/18/19 04/18/19 Previous Rx's Medication Instructions Recorded bumetanide 1 mg PO DAILY #0 tab 09/06/18 torsemide 40 mg PO DAILY #0 tab 09/06/18 Allergies Allergy/AdvReac Type Severity Reaction Status Date / Time hydrocodone [HYDROCODONE] Allergy Severe HIVES Verified 11/22/19 17:22 adhesive tape Allergy Intermediate Verified 11/22/19 17:22 latex Allergy Intermediate Verified 11/22/19 17:22 sulfamethoxazole Allergy Verified 11/22/19 17:22 [From Bactrim] trimethoprim [From Bactrim] Allergy Verified 11/22/19 17:22 levofloxacin [LEVOFLOXACIN] AdvReac Mild STOMACH Verified 11/22/19 17:22 ISSUES miracle liam plant food Allergy anaphylaxis Uncoded 04/18/19 10:29 with contact Review of Systems <LO Morales - Last Filed: 11/22/19 20:40> Review of Systems Narrative: REVIEW OF SYSTEMS: GENERAL: Denies fever or chills. HENT: No head trauma. EYES: No loss of vision, double vision, eye pain, or irritation. CARDIOVASCULAR: No chest pain. RESPIRATORY: Reports intermittent dry cough for the past month. GASTROINTESTINAL: Reports intermittent nausea and vomiting which has improved over the past week. GENITOURINARY: No flank pain or dysuria. MUSCULOSKELETAL: No pain, weakness, or deformities. INTEGUMENTARY: No rash. NEURO: No numbness numbness or tingling. PSYCH: No behavior or mood changes. Patient History <LO Morales - Last Filed: 11/22/19 20:40> Medical History Cardiomyopathy (Chronic) Congestive heart failure (Chronic) Epilepsy (Chronic) Hypertension (Chronic) IBS (irritable bowel syndrome) (Chronic) Morbid obesity with body mass index (BMI) of 50.0 to 59.9 in adult (Chronic) Nephrolithiasis (Chronic) Obstructive sleep apnea (Chronic) PCOS (polycystic ovarian syndrome) (Chronic) Tachy-beth syndrome (Chronic) Surgical History Pacemaker (Chronic) Family History Father Nephrolithiasis Social History household members: family and children Smoking Status: Never smoker alcohol intake: never Smoking Status: Never smoker alcohol intake frequency: 0-2 drinks per day Substance Use Type: does not use Exam <LO Morales - Last Filed: 11/22/19 20:40> Initial Vital Signs Initial Vital Signs: Vital Signs Temperature 99.1 F 11/22/19 17:15 Pulse Rate 78 11/22/19 17:15 Respiratory Rate 19 11/22/19 17:15 Blood Pressure 136/84 11/22/19 17:15 Pulse Oximetry 99 11/22/19 17:15 PHYSICAL EXAMINATION: GENERAL: Well groomed, alert, and cooperative. Answers questions promptly and appropriately. Vital signs noted. HENT: Normocephalic, atraumatic. Ear canals patent. Oral mucosa is pink and moist. EYES: Conjunctiva pink, sclera white, no periorbital swelling. CHEST: Normal to inspection and without deformities. CARDIOVASCULAR: S1 and S2 sounds normal. Regular rate and rhythm, no murmurs, clicks, or bruits. No pedal edema. RESPIRATORY: Normal respiratory rate, trachea midline, airway patent. No stridor, nasal flaring or accessory muscle use. Lungs are clear in all abbott without wheeze, rhonchi, or crackles. GASTROINTESTINAL: Bowel sounds normoactive. Abdomen is soft and non-tender. No organomegaly. MUSCULOSKELETAL: Normal gait and coordination. Equal tone and mass bilaterally. EXTREMITIES: CMS intact. Moves all extremities. SKIN: Warm, dry, soft, appropriate color for ethnicity. No lesions, rashes, or wounds. NEURO: Alert and Oriented X 3. Good coordination. No ataxia, or sensory deficits, or cognitive issues. PSYCH: Appropriate affect and mood. <Darek Ma DO - Last Filed: 11/23/19 00:47> Initial Vital Signs Initial Vital Signs: Vital Signs Temperature 99.1 F 11/22/19 17:15 Pulse Rate 78 11/22/19 17:15 Respiratory Rate 19 11/22/19 17:15 Blood Pressure 136/84 11/22/19 17:15 Pulse Oximetry 99 11/22/19 17:15 Course <LO Morales - Last Filed: 11/22/19 20:40> Course Course Narrative: Patient denies any worsening symptoms during ED stay. Explained plan of care and follow-up, patient understands and agrees with plan of care. Orders Ordered: ED Orders 11/22/19 18:22 XR chest 1V Stat 11/22/19 18:25 EKG-12 Lead Stat 11/22/19 19:00 Complete Blood Count AUTO DIFF Stat Comprehensive Metabolic Panel Stat Lipase Stat Discontinued Medications Sodium Chloride (Normal Saline 0.9%) 1,000 mls @ 150 mls/hr IV CONT BEAR Last Infusion: 11/22/19 20:25 Dose: 0 mls/hr Documented by: MARY ANN Admin: 11/22/19 19:06 Dose: 150 mls/hr Documented by: OMI Potassium Chloride (Klor-Con M20) 40 meq PO NOW ONE Stop: 11/22/19 20:05 Last Admin: 11/22/19 20:19 Dose: 40 meq Documented by: MARY ANN Consultations Consultation #1: 2000: Patient staffed with Dr. Ma discussed test, test results, and plan of care. Vital Signs Vital signs: Vital Signs - 8 hr 11/22/19 17:15 11/22/19 20:23 Temperature 99.1 F Pulse Rate 78 67 Respiratory Rate 19 16 Blood Pressure 136/84 118/60 Pulse Oximetry 99 100 <Darek Ma DO - Last Filed: 11/23/19 00:47> Orders Ordered: ED Orders 11/22/19 18:22 XR chest 1V Stat 11/22/19 18:25 EKG-12 Lead Stat 11/22/19 19:00 Complete Blood Count AUTO DIFF Stat Comprehensive Metabolic Panel Stat Lipase Stat Discontinued Medications Sodium Chloride (Normal Saline 0.9%) 1,000 mls @ 150 mls/hr IV CONT BEAR Last Infusion: 11/22/19 20:25 Dose: 0 mls/hr Documented by: MARY ANN Admin: 11/22/19 19:06 Dose: 150 mls/hr Documented by: OMI Potassium Chloride (Klor-Con M20) 40 meq PO NOW ONE Stop: 11/22/19 20:05 Last Admin: 11/22/19 20:19 Dose: 40 meq Documented by: MARY ANN Vital Signs Vital signs: Vital Signs - 8 hr 11/22/19 17:15 11/22/19 20:23 Temperature 99.1 F Pulse Rate 78 67 Respiratory Rate 19 16 Blood Pressure 136/84 118/60 Pulse Oximetry 99 100 MDM - Recheck/Abnormal Lab/Rx <LO Morales - Last Filed: 11/22/19 20:40> Medical Records Attestation: I reviewed the patient's medical records. Lab Data Attestation: I reviewed the patient's lab results. Result diagrams: 11/22/19 19:00 11/22/19 19:00 Labs: Lab Results 11/22/19 11/22/19 11/22/19 Range/Units 19:00 19:00 19:00 WBC 11.6 H (4.5-11.0) X10^3/uL RBC 4.69 (4.0-5.2) X10^6/uL Hgb 13.3 (12.0-16.0) g/dL Hct 40.4 (36-46) % MCV 86.3 (80-100) fL MCH 28.4 (26-34) PG MCHC 32.9 (30-36) % RDW 13.7 (11.6-14.8) % Plt Count 389 (150-400) X10^3/uL Neut % (Auto) 68.2 (50-75) % Lymph % (Auto) 21.9 L (25-40) % Meade % (Auto) 6.2 (3-14) % Eos % (Auto) 3.1 (2-4) % Baso % (Auto) 0.6 (0-2) % Neut # (Auto) 7900 H (1332-4629) /uL Lymph # (Auto) 2500 (2734-9395) /uL Meade # (Auto) 700 (0-900) /uL Eos # (Auto) 400 (0-450) /uL Baso # (Auto) 100 (0-100) /uL Sodium 137 (137-145) mmol/L Potassium 3.1 L (3.4-5.1) mmol/L Chloride 92 L (98-107) mmol/L Carbon Dioxide 36 H (22-32) mmol/L BUN 17 (7-17) mg/dL Creatinine 0.76 (0.52-1.04) mg/dL Estimated GFR > 60.0 (>60) mL/min BUN/Creatinine Ratio 22.4 H (6-22) Glucose 104 H (70-100) mg/dL Calcium 9.0 (8.4-10.2) mg/dL Total Bilirubin 0.5 (0.2-1.3) mg/dL AST 30 (14-36) IU/L ALT 34 (<35) IU/L Alkaline Phosphatase 106 (38-126) U/L Total Protein 7.7 (6.3-8.2) g/dL Albumin 4.2 (3.5-5.0) g/dL Globulin 3.5 (1.7-4.1) g/dL Albumin/Globulin Ratio 1.2 (1.0-2.8) Lipase 43 (23-300) U/L Imaging Data Chest x-ray: Radiologist's Impression: [address] [address] XRay Report Signed Patient: Little Aparicio [facility]#: [id number] : 1985Acct:[id number] Age/Sex: 34 / FDate of Service: 11/22/19 Loc: ED Accession Number: [id number] Procedure: XR chest 1V Ordering Provider: Anamaria Prakash PROCEDURE: XR CHEST 1V INDICATIONS: cough TECHNIQUE: One view of the chest was acquired. COMPARISON: [facility], CR, XR CHEST 1V, 02/21/2019, 22:06. FINDINGS: Surgical changes and devices: Pacemaker Lungs and pleura: Lungs are clear. No pleural effusions or pneumothorax. Mediastinum: Mediastinal contours appear normal. Heart size is normal. Bones and chest wall: No suspicious bony lesions. Overlying soft tissues appear unremarkable. IMPRESSION: No evidence acute pulmonary process. Dictated by: Markell Thayer M.D. on 11/22/2019 at 18:50 Approved by: Markell Thayer M.D. on 11/22/2019 at 18:50 ECG Data Interpretation: 1851: Atrial paced rhythm, rate 65, P interval 186, QTC 405. No ST elevation or ST depression. T-wave inversion, no ectopy. EKG also viewed by Dr. Ma per protocol. MDM Narrative Medical decision making narrative: 34yo female with history of sick sinus syndrome, sleep apnea, CHF, and a pacemaker presents emergency department for ongoing symptoms over the past month of fatigue and intermittent nausea vomiting. Patient was sent to emergency department due to elevated CO2 which appeared to be measured at a level of 45 on 11/19/19 according to records the patient had with her. I am unsure the exact cause of elevated CO2 however, according patient's records from [id number], patient has chronically elevated CO2 with the highest being 44 on 10/10/2019. Patient's is 36 which is significantly decreased from last measurement on 11/18/21. I am unsure the exact etiology of CO2 however it clearly appears chronic. Patient is stable, She is in no acute distress, oxygen saturations within normal limits. Chest x-ray negative for any acute etiology, no concerns for infection due to lack of tachycardia and fever. Less concern for acute abdominal etiology due to improving symptoms such as nausea and vomiting as well as benign abdominal examination without pain. Return precautions given for new or worsening symptoms. Patient was encouraged to follow up with PCP for further evaluation. Patient agreed to plan of care verbalized understanding. <Darek Ma, DO - Last Filed: 11/23/19 00:47> Lab Data Labs: Lab Results 11/22/19 11/22/19 11/22/19 Range/Units 19:00 19:00 19:00 WBC 11.6 H (4.5-11.0) X10^3/uL RBC 4.69 (4.0-5.2) X10^6/uL Hgb 13.3 (12.0-16.0) g/dL Hct 40.4 (36-46) % MCV 86.3 (80-100) fL MCH 28.4 (26-34) PG MCHC 32.9 (30-36) % RDW 13.7 (11.6-14.8) % Plt Count 389 (150-400) X10^3/uL Neut % (Auto) 68.2 (50-75) % Lymph % (Auto) 21.9 L (25-40) % Meade % (Auto) 6.2 (3-14) % Eos % (Auto) 3.1 (2-4) % Baso % (Auto) 0.6 (0-2) % Neut # (Auto) 7900 H (4316-5819) /uL Lymph # (Auto) 2500 (9073-6662) /uL Meade # (Auto) 700 (0-900) /uL Eos # (Auto) 400 (0-450) /uL Baso # (Auto) 100 (0-100) /uL Sodium 137 (137-145) mmol/L Potassium 3.1 L (3.4-5.1) mmol/L Chloride 92 L (98-107) mmol/L Carbon Dioxide 36 H (22-32) mmol/L BUN 17 (7-17) mg/dL Creatinine 0.76 (0.52-1.04) mg/dL Estimated GFR > 60.0 (>60) mL/min BUN/Creatinine Ratio 22.4 H (6-22) Glucose 104 H (70-100) mg/dL Calcium 9.0 (8.4-10.2) mg/dL Total Bilirubin 0.5 (0.2-1.3) mg/dL AST 30 (14-36) IU/L ALT 34 (<35) IU/L Alkaline Phosphatase 106 (38-126) U/L Total Protein 7.7 (6.3-8.2) g/dL Albumin 4.2 (3.5-5.0) g/dL Globulin 3.5 (1.7-4.1) g/dL Albumin/Globulin Ratio 1.2 (1.0-2.8) Lipase 43 (23-300) U/L Discharge Plan Departure Patient Disposition: Home Clinical Impression: Low blood potassium Discharge Date/Time: 11/22/19 20:29 Activity Restrictions/Additional Instructions: Thank you for entrusting me with your care today. As discussed, your potassium is slightly low at 3.1. Your given a dose of potassium in the emergency depar tment, please continue to take the pills that you have been prescribed and have at home. Your CO2 was 36 today which is fairly consistent to your prior labs over the past year. I recommend following up with your primary care provider in the next 1-2 weeks for further evaluation. Return emergency department for any new or worsening symptoms such as severe shortness of breath, chest pain, syncope, or any other concerns. Prescriptions: No Action cetirizine 10 mg Tablet 10 mg PO DAILY RF: 0 sertraline 100 mg tablet 150 mg PO DAILY RF: 0 montelukast 10 mg tablet 10 mg PO DAILY RF: 0 digoxin 125 mcg tablet 125 mcg PO DAILY RF: 0 albuterol sulfate [ProAir HFA] 90 mcg/actuation Hfa Aerosol Inhaler 2 puff Inhalation Q4H PRN (Reason: Shortness Of Breath) RF: 0 cholecalciferol (vitamin D3) [Vitamin D3] 5,000 unit Tablet 5,000 unit PO DAILY RF: 0 ondansetron 4 mg tablet,disintegrating 4 mg PO Q6H PRN (Reason: Nausea) RF: 0 levetiracetam 500 mg tablet 500 - 1,000 mg PO BID RF: 0 chlorthalidone 25 mg tablet 12.5 mg PO DAILY RF: 0 lacosamide 200 mg tablet 200 mg PO BID RF: 0 potassium chloride 20 mEq Tablet,Er Particles/Crystals 40 meq PO DAILY RF: 0 Qvar RediHaler 80 mcg/actuation Hfa Aerosol Breath Activated 1 puff inhalation BID RF: 0 torsemide 20 mg tablet 40 mg PO DAILY Qty: 0 RF: 0 bumetanide 1 mg tablet 1 mg PO DAILY Qty: 0 RF: 0 fluticasone propionate [Allergy Relief (fluticasone)] 50 mcg/actuation spray,suspension 1 spray NASAL BID RF: 0 diltiazem HCl 120 mg capsule,extended release 24hr 120 mg PO DAILY RF: 0 diltiazem HCl 120 mg capsule,extended release 12 hr 120 mg PO DAILY RF: 0 spironolactone 25 mg tablet 25 mg PO DAILY RF: 0 Referrals: Charo Velásquez MD [Primary Care Provider] - <Darek Ma DO - Last Filed: 11/23/19 00:47> Cosign ED Attending Cosignature Attestation: I was immediately available in the department for consultation. This documentation has been reviewed and I agree with assessment and plan. Supervised by Darek Ma DO
[2019-11-22] MEDS: SODIUM CHLORIDE 0.9% 1,000 ML 150 ML IV (19:06)
[2019-11-22 19:11] LABS: Add Manual Diff / Slide Review NO; Basophils Absolute Auto 100 /uL (0-100); Basophils Percent Auto 0.6 % (0-2); Eosinophils Absolute Auto 400 /uL (0-450); Eosinophils Percent Auto 3.1 % (2-4); Hematocrit 40.4 % (36-46); Hemoglobin 13.3 g/dL (12.0-16.0); Lymphocytes Absolute Auto 2500 /uL (1100-4500); Lymphocytes Percent Auto 21.9 % (25-40); Mean Corpuscular HGB Conc 32.9 % (30-36); Mean Corpuscular Hemoglobin 28.4 PG (26-34); Mean Corpuscular Volume 86.3 fL (80-100); Monocytes Absolute Auto 700 /uL (0-900); Monocytes Percent Auto 6.2 % (3-14); Neutrophils Absolute Auto 7900 /uL (1500-7000); Neutrophils Percent Auto 68.2 % (50-75); Platelet Count 389 X10^3/uL (150-400); Red Blood Cell Count 4.69 X10^6/uL (4.0-5.2); Red Cell Distribution Width 13.7 % (11.6-14.8); White Blood Cell Count 11.6 X10^3/uL (4.5-11.0)
[2019-11-22 19:23] LABS: Alanine Aminotransferase 34 IU/L (<35); Albumin 4.2 g/dL (3.5-5.0); Albumin Globulin Ratio 1.2 (1.0-2.8); Alkaline Phosphatase 106 U/L (38-126); Aspartate Aminotransferase 30 IU/L (14-36); BUN Creatinine Ratio 22.4 (6-22); Bilirubin Total 0.5 mg/dL (0.2-1.3); Blood Urea Nitrogen 17 mg/dL (7-17); Chloride 92 mmol/L (98-107); Estimated Glomerular Filt Rate > 60.0 mL/min (>60); Globulin 3.5 g/dL (1.7-4.1); Glucose 104 mg/dL (70-100); HEMOLYSIS < 15 (0-50); Lipase 43 U/L (23-300); Potassium 3.1 mmol/L (3.4-5.1); Sodium 137 mmol/L (137-145); Total Protein 7.7 g/dL (6.3-8.2)
[2019-11-22 19:30] LABS: Carbon Dioxide 36 mmol/L (22-32)
[2019-11-22] MEDS: POTASSIUM CHLORIDE 20 MEQ TAB 40 MEQ PO (20:19)
[2019-11-22 20:23] VITALS: BP 118/60; PULSE 67; RESP 16; O2SAT 100
== END 2019-11-22 20:29 | disposition home or self-care (01) ==
PROVIDERS: Emergency Provider Nurse Practitioner; PCP Student in an Organized Health Care Education/Training Program; Referring Provider Student in an Organized Health Care Education/Training Program
DX: E87.6 Hypokalemia (principal); R05 Cough; I50.9 Heart failure, unspecified; Z95.0 Presence of cardiac pacemaker
CPT/HCPCS: 36415; 71045; 80053; 83690; 85025; 93005; 96360; 99284

== ENCOUNTER → 2021-09-16 11:01 | Outpatient (CLI) | payer OTHER, MEDICAID, SELFPAY ==
[2018-12-14 10:36] VITALS: BMI 48.2
--- NOTE | 2021-09-16 11:02 | DIET.CONS ---
Dietary Consultation Note Pt at her home and agrees to telehealth visit, RD in hospital office, visit conducted via video conference Vsee platform. Assessment: 36y F attending first pre-bariatric RD visit for bariatric surgery with Ck. PCP Dr. Charo Guaman [facility] in pre-auth sent to [facility] by PCP, denied at first but then uwop-by-taeq approval Pt lives in [place] with 13yo daughter. Daughter is underweight. PMHX: PCOS, epilepsy, CHF, CATARINO, morbid obesity, HTN, on 4L O2 at night, prn during day. Weighs self daily for CHF, doses meds based on this. had hysterectomy 2010-one bad ovary left in but pt went through menopause. cholecystectomy 2020-went on vegan diet and was losing some weight. Going in for official weights and diet diary check at PCP office monthly. Goal weight for surgery qualification: 300# Weight Hx: Started putting on weight as teenager with start of menses, in HS 200#, 240# when c daughter, lost all baby weight, starting to gain weight up to 300# while . Was working full-time, starting issues exercising SOB, lightheaded- diagnosed c cardiomyopathy, pacemaker in 2017 had pacemaker installed, up to 365#. Before all this, went to gym every other day, snowboarding, hiking, felt toned at 200# Frustrations with chest pain and O2 sats with exercise. Tried bariatric surgery in 2016- denied after stage 2 because of bariatric paperwork issues, timed out. Has tried paleo, mediterranean, santiago, slim fast, going to gym Pt feels calorie counting works best for her and staying mindful of what she eats. Pt not a big meat eater- relied on starchy carbs (pasta, bread, rice, potatoes) and f/v. Usual Day: current intake is B/L/D no snacks wakes 5am to take pills- gets stomach ache if on an empty stomach B: toast c natural sodium free pb or avocado toast, or montano tomatoes c cheese and almonds, or hand fruit with toast when going off track- either skips meal or reverts to ultraprocessed foods in freezer L: sometimes skips, salads, homemade ramen, pad latvian, stir mckinney D: tuna or salmon packets, minestrone, lentils unsweet tea and water (no caffeine since 2008) Ht: 5'8 Wt: 316# BMI: 48.2 Nutrition Diagnosis: morbid obesity r/t undesirable food choices, physical inactivity and hormonal dysregulation aeb BMI 48, pt with PCOS, pt c CHF on 4L O2 at night limiting PA, pt attending RD visits to qualify for bariatric surgery. Interventions: 1. Reviewed criteria for bariatric surgery through [facility]. Pt on track. 2. Conducted in depth health and eating history to better understand pts preferences and current patterns. 3. Educated pt on the hunger scale. Instructed pt to eat when a 3 and stop when an 8. If eating at a 5, ask self what is going on that she is eating when not hungry. 4. Educated pt on meal replacement shakes as pt would like to swap one meal for protein drink. Recc Orgain plant based shake c 150kcals, 20g PRO and 9g CHO, this formulation has 450mg sodium, however, within limit of 600mg for a meal. 5. Discussed swaps to consume more often than not to sub for pasta and rice. Pt can eat entire bag of shiratake noodles or two cups cauliflower rice in place of one cup pasta or rice. EER: 2,000kcals/d for weight loss of 1-2#/week Monitoring/Evaluations: f/u in 2w for pre-bariatric visit #2- discuss hunger scale, food changes, kcal levels. Electronically Signed by: Rina Leary 09/16/21 11:02 Clinical Dietitian [address] [address]
[2021-09-16 11:51] VITALS: BMI 48.0
== END ==
PROVIDERS: PCP Student in an Organized Health Care Education/Training Program; Referring Provider Student in an Organized Health Care Education/Training Program; Visit Provider Student in an Organized Health Care Education/Training Program
DX: Z71.3 Dietary counseling and surveillance (principal); Z68.38 Body mass index [BMI] 38.0-38.9, adult
CPT/HCPCS: 97802

== ENCOUNTER 2021-09-30 08:39 | Emergency (ER) | payer OTHER, MEDICAID, SELFPAY ==
[2018-12-14 10:36] VITALS: BMI 48.2
[2021-09-30] VITALS (11 sets, daily range): BP systolic 122–138; BP diastolic 57–68; PULSE 60–80; RESP 18–28; TEMP 36.6; O2SAT 92–100; BMI 50.6
--- NOTE | 2021-09-30 09:29 | DI.RAD.S_ITS ---
PROCEDURE: XR CHEST 1V INDICATIONS: chest pain TECHNIQUE: One view of the chest was acquired. COMPARISON: [facility], CR, XR CHEST 1V, 02/21/2019, 22:06. [facility], CR, XR CHEST 1V, 11/22/2019, 18:26. FINDINGS: Surgical changes and devices: Left chest wall cardiac pacer is stable. Lungs and pleura: Lungs are clear. No pleural effusions or pneumothorax. Mediastinum: Mediastinal contours appear normal. Heart size is normal. Bones and chest wall: No suspicious bony lesions. Overlying soft tissues appear unremarkable. IMPRESSION: No acute cardiopulmonary disease process. Dictated by: Shayla Graf MD, PhD on 09/30/2021 at 10:27 Approved by: Shayla Graf MD, PhD on 09/30/2021 at 10:27
[2021-09-30] MEDS: ASPIRIN 81 MG CHEW TAB 324 MG PO (11:17)
--- NOTE | 2021-09-30 11:27 | PC.NURSE ---
Pt reports SOB for past 2 days and intermittent substernal chest pain. Pt reports gaining 30 pounds since Tuesday and feeling puffy all over. She reports a hx of CHF and pacemaker in 2017 and cardiomyopathy in 2013. Aquatics Director is Dr. Aponte.
[2021-09-30 11:37] LABS: Add Manual Diff / Slide Review NO; Basophils Absolute Auto 0 /uL (0-100); Basophils Percent Auto 0.2 % (0-2); Eosinophils Absolute Auto 200 /uL (0-450); Eosinophils Percent Auto 1.7 % (2-4); Hematocrit 34.7 % (36-46); Hemoglobin 12.3 g/dL (12.0-16.0); Lymphocytes Absolute Auto 2600 /uL (1100-4500); Lymphocytes Percent Auto 21.6 % (25-40); Mean Corpuscular HGB Conc 35.4 % (30-36); Mean Corpuscular Hemoglobin 31.1 PG (26-34); Monocytes Absolute Auto 700 /uL (0-900); Monocytes Percent Auto 5.6 % (3-14); Neutrophils Absolute Auto 8700 /uL (1500-7000); Neutrophils Percent Auto 70.9 % (50-75); Platelet Count 378 X10^3/uL (150-400); Red Blood Cell Count 3.94 X10^6/uL (4.0-5.2); Red Cell Distribution Width 12.5 % (11.6-14.8); White Blood Cell Count 12.3 X10^3/uL (4.5-11.0)
[2021-09-30 11:44] LABS: Prothrombin Time 11.4 SECONDS (10.1-12.7)
[2021-09-30 11:46] LABS: PTT Partial Thromboplastin Tim 35 SECONDS (26.4-36.2)
[2021-09-30 11:48] LABS: Alanine Aminotransferase 28 IU/L (<35); Albumin 4.3 g/dL (3.5-5.0); Albumin Globulin Ratio 1.4 (1.0-2.8); Alkaline Phosphatase 102 U/L (38-126); Aspartate Aminotransferase 26 IU/L (14-36); BUN Creatinine Ratio 17.7 (6-22); Bilirubin Total 0.4 mg/dL (0.2-1.3); Blood Urea Nitrogen 14 mg/dL (7-17); Calcium 9.4 mg/dL (8.4-10.2); Carbon Dioxide 31 mmol/L (22-32); Chloride 99 mmol/L (98-107); Creatine Kinase 69 U/L (30-135); Estimated Glomerular Filt Rate > 60 mL/min (>60); Glucose 132 mg/dL (70-100); HEMOLYSIS < 15 (0-50); Lipase 27 U/L (23-300); Magnesium 2.2 mg/dL (1.6-2.3); Potassium 3.2 mmol/L (3.4-5.1); Sodium 140 mmol/L (137-145); Total Protein 7.3 g/dL (6.3-8.2)
[2021-09-30 11:57] LABS: NT-proBNP (BNP-Adult 18+) 323 pg/mL (<125)
[2021-09-30 12:00] LABS: Troponin I < 0.012 ng/mL (0.01-0.034)
--- NOTE | 2021-09-30 12:15 | ED.SOB ---
HPI - SOB/Dyspnea General Chief Complaint: Shortness of Breath/Dyspnea Stated Complaint: States 30lbs water retention, SOB, heart palps Time Seen by Provider: 09/30/21 11:12 Source: patient Mode of arrival: Ambulatory Limitations: no limitations History of Present Illness HPI Narrative: 36F nonsmoker with history of sinus node dysfunction and CHF presents with a chief complaint of bilateral leg swelling, anterior abdomen swelling and shortness of breath for the past few days. She states her shortness of breath is worse with exertion with laying flat. She states that she is gained upwards of 20 lb in the past few days. She has been taking her diuretics as prescribed and has missed no doses nor has she had any recent changes in the dosing regimen. She is managed by Cardiology in [place] and last echo was in June and largely unremarkable. She denies any dizziness or lightheadedness and has no fever or chills. She denies any pain. Related Data Home Medications Medication Instructions Recorded Confirmed albuterol sulfate 90 mcg/actuation 2 puff inhalation Q4H PRN 07/27/17 12/14/18 aerosol inhaler (ProAir HFA) Shortness Of Breath cetirizine 10 mg tablet 10 mg PO DAILY 07/27/17 12/14/18 cholecalciferol (vitamin D3) 125 5,000 unit PO DAILY 07/27/17 12/14/18 mcg (5,000 unit) tablet (Vitamin D3) digoxin 125 mcg (0.125 mg) tablet 125 mcg PO DAILY 07/27/17 12/14/18 montelukast 10 mg tablet 10 mg PO DAILY 07/27/17 12/14/18 sertraline 100 mg tablet 150 mg PO DAILY 07/27/17 12/14/18 beclomethasone dipropionate 80 1 puff inhalation BID 09/04/18 12/14/18 mcg/actuation HFA breath activated aerosol (Qvar RediHaler) chlorthalidone 25 mg tablet 12.5 mg PO DAILY 09/04/18 09/04/18 lacosamide 200 mg tablet 200 mg PO BID 09/04/18 12/14/18 potassium chloride 20 mEq 40 meq PO DAILY 09/04/18 12/14/18 tablet,extended release(part/cryst) diltiazem HCl 120 mg 120 mg PO DAILY 12/14/18 12/14/18 capsule,extended release 24 hr fluticasone propionate 50 1 spray intranasal BID 12/14/18 12/14/18 mcg/actuation nasal spray,suspension (Allergy Relief (fluticasone)) levetiracetam 500 mg tablet 500 - 1,000 mg PO BID 12/14/18 12/14/18 ondansetron 4 mg disintegrating 4 mg PO Q6H PRN Nausea 12/14/18 12/14/18 tablet diltiazem HCl 120 mg 120 mg PO DAILY 04/18/19 04/18/19 capsule,extended release 12 hr spironolactone 25 mg tablet 25 mg PO DAILY 04/18/19 04/18/19 Previous Rx's Medication Instructions Recorded bumetanide 1 mg tablet 1 mg PO DAILY #0 tabs 09/06/18 torsemide 20 mg tablet 40 mg PO DAILY #0 tabs 09/06/18 Allergies Allergy/AdvReac Type Severity Reaction Status Date / Time hydrocodone [HYDROCODONE] Allergy Severe HIVES Verified 09/30/21 09:28 adhesive tape Allergy Intermediate Verified 09/30/21 09:28 latex Allergy Intermediate Verified 09/30/21 09:28 sulfamethoxazole Allergy Verified 09/30/21 09:28 [From Bactrim] trimethoprim [From Bactrim] Allergy Verified 09/30/21 09:28 levofloxacin [LEVOFLOXACIN] AdvReac Mild STOMACH Verified 09/30/21 09:28 ISSUES miracle liam plant food Allergy anaphylaxis Uncoded 04/18/19 10:29 with contact Review of Systems Review of Systems Narrative: GENERAL: Denies chills, fatigue, malaise, fever, sweats. HEENT: Denies sinus pain, ear pain, sore throat, difficulty swallowing, dizziness. RESPIRATORY: See HPI CARDIOVASCULAR: See HPI GASTROINTESTINAL: Denies nausea, vomiting, abdominal pain, diarrhea, constipation, melena. : Denies dysuria, frequency, incontinence, hematuria, urinary retention. MUSCULOSKELETAL: denies weakness, joint pain, or bony pain SKIN: Denies rash, skin lesions, or other NEUROLOGIC: Denies weakness, headache, numbness, change in speech, confusion, seizures, incoordination. PSYCHIATRIC: No concerning psychosocial issues. 12 point review of systems is negative except for those stated above Patient History Medical History Cardiomyopathy Congestive heart failure Epilepsy Hypertension IBS (irritable bowel syndrome) Morbid obesity with body mass index (BMI) of 50.0 to 59.9 in adult Nephrolithiasis Obstructive sleep apnea PCOS (polycystic ovarian syndrome) Tachy-beth syndrome Surgical History Pacemaker Family History Father Nephrolithiasis Social History household members: family and children Smoking Status: Never smoker alcohol intake: never Smoking Status: Never smoker alcohol intake frequency: 0-2 drinks per day Substance Use Type: does not use Exam Narrative Exam Narrative: GENERAL: [36] year old patient appears stated age. Well-developed patient, in mild distress. HEAD: Atraumatic. Normocephalic. EYES: Pupils equal round and reactive. Extraocular motions intact. No scleral icterus. No injection or drainage. ENT: Nose without bleeding, purulent drainage. Throat without erythema, tonsillar hypertrophy or exudate. Airway patent. NECK: Trachea midline. Non tender CARDIOVASCULAR: Regular rate and rhythm without murmurs, gallops, or rubs. RESPIRATORY: Faint crackles in bilateral bases, no significant work of breathing, no hypoxemia GASTROINTESTINAL: Abdomen soft, non-tender, nondistended. EXTREMITIES: 2+ pitting edema in bilateral lower extremities BACK: Nontender without deformity or crepitance. No flank tenderness. NEURO: AOx3. SKIN: No rash or erythema of visible areas Initial Vital Signs Initial Vital Signs: Vital Signs Temperature 97.8 F 09/30/21 09:22 Pulse Rate 63 09/30/21 09:22 Respiratory Rate 28 H 09/30/21 09:22 Blood Pressure 138/67 09/30/21 09:22 Pulse Oximetry 100 09/30/21 09:22 Oxygen Delivery Method 09/30/21 09:22 Course Orders Ordered: ED Orders 09/30/21 09:29 XR chest 1V Stat 09/30/21 10:55 BNP [NT-proBNP (BNP-Adult 18+)] Stat Complete Blood Count AUTO DIFF Stat Comprehensive Metabolic Panel Stat Lipase Stat Magnesium Stat Partial Thromboplastin Time Stat Prothrombin Time INR Stat Troponin & CK Cardiac Panel Stat 09/30/21 11:19 EKG-12 Lead Stat Discontinued Medications Aspirin (Aspirin 81 Mg Chew Tab) 324 mg PO NOW ONE Stop: 09/30/21 09:30 Last Admin: 09/30/21 11:17 Dose: 324 mg Documented By: SB Furosemide (Furosemide 40 Mg/4 Ml Vial) 40 mg IV NOW ONE Stop: 09/30/21 12:52 Last Admin: 09/30/21 13:10 Dose: 40 mg Documented By: SB Furosemide (Furosemide 100 Mg/10 Ml Vial) 80 mg IV NOW ONE Stop: 09/30/21 13:51 Last Admin: 09/30/21 14:03 Dose: 80 mg Documented By: SB Vital Signs Vital signs: Vital Signs - 8 hr 09/30/21 11:10 09/30/21 11:12 09/30/21 11:12 Pulse Rate 71 66 Respiratory Rate Blood Pressure 129/64 Pulse Oximetry 92 97 09/30/21 11:30 09/30/21 11:31 09/30/21 11:31 Pulse Rate 61 60 Respiratory Rate 23 25 H Blood Pressure 122/57 L Pulse Oximetry 98 99 09/30/21 12:00 09/30/21 12:30 09/30/21 12:31 Pulse Rate 60 60 Respiratory Rate 26 H 24 Blood Pressure 136/68 Pulse Oximetry 99 99 09/30/21 12:31 09/30/21 13:00 09/30/21 13:00 Pulse Rate 60 60 Respiratory Rate 24 Blood Pressure 124/63 Pulse Oximetry 98 99 09/30/21 13:30 09/30/21 14:00 Pulse Rate 60 80 Respiratory Rate 18 Blood Pressure Pulse Oximetry 98 95 MDM - SOB/Dyspnea Lab Data Result diagrams: 09/30/21 10:55 09/30/21 10:55 Labs: Lab Results 09/30/21 09/30/21 09/30/21 Range/Units 10:55 10:55 10:55 WBC 12.3 H (4.5-11.0) X10^3/uL RBC 3.94 L (4.0-5.2) X10^6/uL Hgb 12.3 (12.0-16.0) g/dL Hct 34.7 L (36-46) % MCV 88.0 (80-100) fL MCH 31.1 (26-34) PG MCHC 35.4 (30-36) % RDW 12.5 (11.6-14.8) % Plt Count 378 (150-400) X10^3/uL Neut % (Auto) 70.9 (50-75) % Lymph % (Auto) 21.6 L (25-40) % Summit % (Auto) 5.6 (3-14) % Eos % (Auto) 1.7 L (2-4) % Baso % (Auto) 0.2 (0-2) % Neut # (Auto) 8700 H (9317-7843) /uL Lymph # (Auto) 2600 (0687-0476) /uL Summit # (Auto) 700 (0-900) /uL Eos # (Auto) 200 (0-450) /uL Baso # (Auto) 0 (0-100) /uL PT 11.4 (10.1-12.7) SECONDS INR 1.0 (0.9-1.3) APTT 35 (26.4-36.2) SECONDS Sodium 140 (137-145) mmol/L Potassium 3.2 L (3.4-5.1) mmol/L Chloride 99 (98-107) mmol/L Carbon Dioxide 31 (22-32) mmol/L BUN 14 (7-17) mg/dL Creatinine 0.79 (0.52-1.04) mg/dL Estimated GFR > 60 (>60) mL/min BUN/Creatinine Ratio 17.7 (6-22) Glucose 132 H (70-100) mg/dL Calcium 9.4 (8.4-10.2) mg/dL Magnesium 2.2 (1.6-2.3) mg/dL Total Bilirubin 0.4 (0.2-1.3) mg/dL AST 26 (14-36) IU/L ALT 28 (<35) IU/L Alkaline Phosphatase 102 (38-126) U/L Total Creatine Kinase 69 (30-135) U/L CK-MB (CK-2) TNP CK-MB (CK-2) Rel Index TNP Troponin I < 0.012 (0.01-0.034) ng/mL NT-Pro-B Natriuret Pep (<125) pg/mL Total Protein 7.3 (6.3-8.2) g/dL Albumin 4.3 (3.5-5.0) g/dL Globulin 3.0 (1.7-4.1) g/dL Albumin/Globulin Ratio 1.4 (1.0-2.8) Lipase 27 (23-300) U/L 09/30/21 Range/Units 10:55 WBC (4.5-11.0) X10^3/uL RBC (4.0-5.2) X10^6/uL Hgb (12.0-16.0) g/dL Hct (36-46) % MCV (80-100) fL MCH (26-34) PG MCHC (30-36) % RDW (11.6-14.8) % Plt Count (150-400) X10^3/uL Neut % (Auto) (50-75) % Lymph % (Auto) (25-40) % Summit % (Auto) (3-14) % Eos % (Auto) (2-4) % Baso % (Auto) (0-2) % Neut # (Auto) (3625-4723) /uL Lymph # (Auto) (4731-6904) /uL Summit # (Auto) (0-900) /uL Eos # (Auto) (0-450) /uL Baso # (Auto) (0-100) /uL PT (10.1-12.7) SECONDS INR (0.9-1.3) APTT (26.4-36.2) SECONDS Sodium (137-145) mmol/L Potassium (3.4-5.1) mmol/L Chloride (98-107) mmol/L Carbon Dioxide (22-32) mmol/L BUN (7-17) mg/dL Creatinine (0.52-1.04) mg/dL Estimated GFR (>60) mL/min BUN/Creatinine Ratio (6-22) Glucose (70-100) mg/dL Calcium (8.4-10.2) mg/dL Magnesium (1.6-2.3) mg/dL Total Bilirubin (0.2-1.3) mg/dL AST (14-36) IU/L ALT (<35) IU/L Alkaline Phosphatase (38-126) U/L Total Creatine Kinase (30-135) U/L CK-MB (CK-2) CK-MB (CK-2) Rel Index Troponin I (0.01-0.034) ng/mL NT-Pro-B Natriuret Pep 323 H (<125) pg/mL Total Protein (6.3-8.2) g/dL Albumin (3.5-5.0) g/dL Globulin (1.7-4.1) g/dL Albumin/Globulin Ratio (1.0-2.8) Lipase (23-300) U/L Imaging Data Chest x-ray: Radiologist's Impression: ? Chart Viewer Diagnostics Subcategory All Activity ??:?? All Time ??:?? All Subcategories Filter Laboratory Imaging Microbiology Pathology Blood Bank Tests Cardiovascular Other Specialty DATE TYPE STATUS REF RANGE/AUTHOR Hx Today 09:29 Chest X-Ray Signed Shayla Graf 11/22/19 18:22 Chest X-Ray Signed Markell Thayer 02/21/19 21:02 Chest X-Ray Signed Beverly Tellez 02/21/19 20:[address] Signed Beverly Tellez 02/21/19 20:[address] Signed Beverly Tellez 02/21/19 19:20 EKG Rpt. With notes 09/05/18 16:38 Chest CTA Signed Chaz Davis 09/05/18 01:07 Echocardiogram Ultrasound Signed Citlali Madrigal 09/04/18 18:22 Telemetry Strips ? 09/04/18 15:21 Chest X-Ray Signed Steffany Amador 07/27/17 11:44 EKG Rpt. ? 07/27/17 11:06 Chest X-Ray Signed Pierce Woods Sarah N ED 36, F?1985 MRN#? [id number] DEP ER,?[facility] ED??? 172.72cm 151.046kg BMI: 50.6kg/m? Shortness of Breath/Dyspnea Acc#? [id number] Resus Status Not Ordered Hx Avail Special Indicators No Data to Display Home Meds Not Confirmed Prescription Monitoring Program MEDICATIONS (INSTRUCTIONS) LAST TAKEN Active ??albuterol sulfate [ProAir HFA] ??2 [id number] Of Breath ??bumetanide ??1 mgPODAILY#0 tabs ??cetirizine ??10 mgPODAILY ??chlorthalidone ??12.5 mgPODAILY ??cholecalciferol (vitamin D3) [Vitamin D3] ??5,000 unitPODAILY ??digoxin ??125 mcgPODAILY ??diltiazem HCl 120 mg capsule,extended release 12 hr ??120 mgPODAILY ??diltiazem HCl 120 mg capsule,extended release 24 hr ??120 mgPODAILY ??fluticasone propionate 50 mcg/actuation nasal spray,suspension ??1 sprayintranasalBID ??lacosamide ??200 mgPOBID ??levetiracetam 500 mg tablet ??500 - 1,000 mgPOBID ??montelukast ??10 mgPODAILY ??ondansetron 4 mg disintegrating tablet ??4 [id number] ??potassium chloride ??40 meqPODAILY ??Qvar RediHaler ??1 puffinhalationBID ??sertraline ??150 mgPODAILY ??spironolactone 25 mg tablet ??25 mgPODAILY ??torsemide ??40 mgPODAILY#0 tabs Allergies hydrocodone (HYDROCODONE) HIVES adhesive tape latex sulfamethoxazole (From Bactrim) trimethoprim (From Bactrim) levofloxacin (LEVOFLOXACIN) STOMACH ISSUES [miracle liam plant food] anaphylaxis with contact Problems ? ONSET Acute CHF Fluid excess Morbid obesity with body mass index (BMI) of 50.0 to 59.9 in adult Obstructive sleep apnea Fluid overload Breath shortness Dehydration Chest pain Heart palpitations Vomiting Gastroenteritis Nausea Seizure Brent's paralysis Bradycardia Hypotension Ischemic cardiomyopathy Symptomatic hypotension CHF (congestive heart failure) Asthma Dyspnea Atypical chest pain Flank pain Vision changes Vital Signs Today 14:00 Pulse 80? Resp 18? O2 Sat 95? Diagnostics Reports Little Aparicio??36??F??1985 ? Allergy/Adv: hydrocodone, adhesive tape, latex, sulfamethoxazole, trimethoprim, levofloxacin, [miracle liam plant food] (More??) Close Chest X-Ray (Signed) Shayla Graf - 09/30/21 Chest X-Ray (Signed) Markell Thayer - 11/22/19 Chest X-Ray (Signed) Beverly Tellez - 02/21/[address] (Signed) Beverly Tellez - 02/21/[address] (Signed) Beverly Tellez - 02/21/19 EKG Rpt. 02/21/19 Chest CTA (Signed) Chaz Davis - 09/05/18 Echocardiogram Ultrasound (Signed) Citlali Madrigal - 09/05/18 Telemetry Strips 09/04/18 Chest X-Ray (Signed) Amador,Steffany - 09/04/18 EKG Rpt. 07/27/17 Chest X-Ray (Signed) Pierce Woods - 07/27/17 Launch?Image [address] [address] XRay Report Signed Patient: Little Aparicio MR#: [id number] : 1985 Acct:[id number] Age/Sex: 36 / F Date of Service: 09/30/21 Loc: ED Accession Number: [id number] ?? Procedure: XR chest 1V Ordering Provider: Darek Ma D.O. PROCEDURE:? XR CHEST 1V ? INDICATIONS:? chest pain ? TECHNIQUE:? One view of the chest was acquired.? ? COMPARISON:? [facility], CR, XR CHEST 1V, 02/21/2019, 22:06.? [facility], CR, XR CHEST 1V, 11/22/2019, 18:26. ? FINDINGS:? ? Surgical changes and devices:? Left chest wall cardiac pacer is stable. ? Lungs and pleura:? Lungs are clear.? No pleural effusions or pneumothorax.? ? Mediastinum:? Mediastinal contours appear normal.? Heart size is normal.? ? Bones and chest wall:? No suspicious bony lesions.? Overlying soft tissues appear unremarkable.? ? IMPRESSION:? No acute cardiopulmonary disease process. ? ? Dictated by: Shayla Graf MD, PhD on 09/30/2021 at 10:27 ? ? Approved by: Shayla Graf MD, PhD on 09/30/2021 at 10:27 ? MDM Narrative Medical decision making narrative: Discussed with on-call Cardiology and Uziel, he is reviewed the note and confirmed dosing of diuretics. He recommends large dose of Lasix here and to increase spironolactone 25-50 mg daily. There are notes suggesting cardiology has been wanting to see her in the office, he recommends appropriate return precautions and discharged with instructions to follow closely with their clinic. Discharge Plan Departure Patient Disposition: Home Clinical Impression: Acute CHF, Fluid excess Instructions: DI for Heart Failure Activity Restrictions/Additional Instructions: *You have been diagnosed with [swelling consistent with fluid overload.] *What to do: *Please increase your Spironolactone from 25mg to 50mg daily per my conversation with the [employer] [facility] [employer] in [place]. Otherwise keep your meds the same. *Please follow up with your [employer] in 2-3 days, call for an appointment. Let them know you were seen in the Emergency Department and that we ask that you be seen in follow up. *Return to Emergency Department if you should have any new, worsening or concerning symptoms, such as [fever greater than 101 F, shaking chills, worsening pain, persistent vomiting or other bothersome symptoms] Prescriptions: No Action cetirizine 10 mg Tablet 10 mg PO DAILY sertraline 100 mg tablet 150 mg PO DAILY Label Comments: med list provided lists 2 x 25mg tabs daily. pharmacy fill is for 1.5 tabs of 100mg tab. montelukast 10 mg tablet 10 mg PO DAILY digoxin 125 mcg tablet 125 mcg PO DAILY albuterol sulfate [ProAir HFA] 90 mcg/actuation Hfa Aerosol Inhaler 2 puff Inhalation Q4H PRN (Reason: Shortness Of Breath) Label Comments: not on med list provided. 09/04/18 cholecalciferol (vitamin D3) [Vitamin D3] 5,000 unit Tablet 5,000 unit PO DAILY Label Comments: not listed on medication list provided. 09/04/18 ondansetron 4 mg tablet,disintegrating 4 mg PO Q6H PRN (Reason: Nausea) levetiracetam 500 mg tablet 500 - 1,000 mg PO BID Label Comments: 500mg in AM and 1000mg in PM chlorthalidone 25 mg tablet 12.5 mg PO DAILY lacosamide 200 mg tablet 200 mg PO BID Label Comments: med list provided lists 150mg dose but last pharmacy fill is increase to 200mg potassium chloride 20 mEq Tablet,Er Particles/Crystals 40 meq PO DAILY Qvar RediHaler 80 mcg/actuation Hfa Aerosol Breath Activated 1 puff inhalation BID torsemide 20 mg tablet 40 mg PO DAILY Qty: 0 0RF Rx Instructions: Increase to twice daily for 1 week then go back to once daily thereafter. bumetanide 1 mg tablet 1 mg PO DAILY Qty: 0 0RF Rx Instructions: Take as instructed/prescribed by [employer] and as needed for excessive weight gain fluticasone propionate [Allergy Relief (fluticasone)] 50 mcg/actuation spray,suspension 1 spray NASAL BID diltiazem HCl 120 mg capsule,extended release 24hr 120 mg PO DAILY diltiazem HCl 120 mg capsule,extended release 12 hr 120 mg PO DAILY spironolactone 25 mg tablet 25 mg PO DAILY Referrals: Charo Velásquez MD [Primary Care Provider] - Visit Report Forms: Patient Portal/API
[2021-09-30] MEDS: FUROSEMIDE 40 MG/4 ML VIAL IV (13:10)
[2021-09-30] MEDS: FUROSEMIDE 100 MG/10 ML VIAL 80 MG IV (14:03)
== END 2021-09-30 14:33 | disposition home or self-care (01) ==
PROVIDERS: Emergency Provider Emergency Medicine; PCP Student in an Organized Health Care Education/Training Program
DX: I50.9 Heart failure, unspecified (principal); E87.70 Fluid overload, unspecified; R07.9 Chest pain, unspecified
CPT/HCPCS: 36415; 71045; 80053; 82550; 83690; 83735; 83880; 84484; 85025; 85610; 85730; 93005; 96374; 96376; 99284; J1940

== ENCOUNTER → 2021-09-30 13:39 | Outpatient (CLI) | payer OTHER, MEDICAID, SELFPAY ==
[2018-12-14 10:36] VITALS: BMI 48.2
--- NOTE | 2021-09-30 13:40 | DIET.OUTPTC ---
Dietary Outpatient Consultation Note Consultation Date: 09/30/[address] 36[address] via telehealth using [employer] video conferencing for second of 12 pre-bariatric visits. Pt is in private room, RD is in hospital office, pt agrees to telehealth visit. Pt purchased Orgain protein drinks which arrived 3d after our first office visit. Pt was drinking 3 per day for a week in place of meals. Pt admitted to ED today for reported 30# water weight gain. Pt reports prior to water weight gain, she had lost 5#. Pt was planning on cutting back to 2 protein drinks and one dinner daily. Interventions: 1. Recc pt stick to protein meal replacement for breakfast then eat healthy portion-controlled lunch and dinner. Reminded pt we have 6mo to hit her weight goal, best to do it with slow intentionality rather than a liquid diet. Monitoring/Evaluation: f/u in 2w to continue education. Electronically Signed by: Rina Leary 09/30/21 13:40 Clinical Dietitian [address] [id number]
== END ==
PROVIDERS: PCP Student in an Organized Health Care Education/Training Program; Referring Provider Student in an Organized Health Care Education/Training Program; Visit Provider Student in an Organized Health Care Education/Training Program
DX: Z71.3 Dietary counseling and surveillance (principal)
CPT/HCPCS: 93010; 97803

== ENCOUNTER → 2021-10-28 13:58 | Outpatient (CLI) | payer OTHER, MEDICAID, SELFPAY ==
[2018-12-14 10:36] VITALS: BMI 48.2
--- NOTE | 2021-10-28 14:00 | DIET.OUTPTC ---
Dietary Outpatient Consultation Note Consultation Date: 10/28/2021 Pt in home office, RD in hospital office, using [employer] video conferencing which pt agrees to. 36y F attending third of 12 pre-bariatric visits via telehealth. Pt doing well with nutrition reccs, she is drinking Orgain plant based shakes twice daily with spinach and banana, avocado and 40kcal superfood mix. Pt focusing on low carb, moderate protein intake with focus on plant foods. Current Weight: 311# (-5# since first visit). Pt getting meds adjusted because she was having some water weight. Will find out final routine tomorrow with her repeat blood work. RD and patient scheduled out remainder of nutrition visits with proposed end date of 03/03/22. f/u in 2w for fourth prebariatric visit. Electronically Signed by: Rina Leary 10/28/21 14:[address] [id number]
== END ==
PROVIDERS: PCP Student in an Organized Health Care Education/Training Program; Referring Provider Student in an Organized Health Care Education/Training Program; Visit Provider Student in an Organized Health Care Education/Training Program
DX: Z71.3 Dietary counseling and surveillance (principal)
CPT/HCPCS: 97803

== ENCOUNTER 2021-11-01 18:22 | Emergency (ER) | payer OTHER, MEDICAID, SELFPAY ==
[2018-12-14 10:36] VITALS: BMI 48.2
[2021-11-01 18:38] VITALS: BP 158/85; PULSE 82; RESP 18; TEMP 36.1; O2SAT 95; BMI 47.2
--- NOTE | 2021-11-01 19:04 | ED_ITS ---
HPI - Skin/Abscess/Foreign Bdy <Aldair Olmos PA-C - Last Filed: 11/01/21 20:20> General Chief complaint: Skin/Abscess/Foreign Body Stated complaint: Thinks blood clot or varicose vein Time Seen by Provider: 11/01/21 18:44 Source: patient Mode of arrival: Family Vehicle Limitations: no limitations History of Present Illness HPI narrative: Patient is a 36-year-old female to the emergency room today with complaint of bleeding from the back of her leg that has resolved at this time. Patient states she noticed appear to be varicose vein on the back of her leg yesterday. Patient states this morning at about 5:30 the vein burst and bled. Patient states he held pressure to the area for about 20 minutes to lead to bleeding. He is here to emergency room today to rule out any emergent concerns. Related Data Home Medications Medication Instructions Recorded Confirmed albuterol sulfate 90 mcg/actuation 2 puff inhalation Q4H PRN 07/27/17 12/14/18 aerosol inhaler (ProAir HFA) Shortness Of Breath cetirizine 10 mg tablet 10 mg PO DAILY 07/27/17 12/14/18 cholecalciferol (vitamin D3) 125 5,000 unit PO DAILY 07/27/17 12/14/18 mcg (5,000 unit) tablet (Vitamin D3) digoxin 125 mcg (0.125 mg) tablet 125 mcg PO DAILY 07/27/17 12/14/18 montelukast 10 mg tablet 10 mg PO DAILY 07/27/17 12/14/18 sertraline 100 mg tablet 150 mg PO DAILY 07/27/17 12/14/18 beclomethasone dipropionate 80 1 puff inhalation BID 09/04/18 12/14/18 mcg/actuation HFA breath activated aerosol (Qvar RediHaler) chlorthalidone 25 mg tablet 12.5 mg PO DAILY 09/04/18 09/04/18 lacosamide 200 mg tablet 200 mg PO BID 09/04/18 12/14/18 potassium chloride 20 mEq 40 meq PO DAILY 09/04/18 12/14/18 tablet,extended release(part/cryst) diltiazem HCl 120 mg 120 mg PO DAILY 12/14/18 12/14/18 capsule,extended release 24 hr fluticasone propionate 50 1 spray intranasal BID 12/14/18 12/14/18 mcg/actuation nasal spray,suspension (Allergy Relief (fluticasone)) levetiracetam 500 mg tablet 500 - 1,000 mg PO BID 12/14/18 12/14/18 ondansetron 4 mg disintegrating 4 mg PO Q6H PRN Nausea 12/14/18 12/14/18 tablet diltiazem HCl 120 mg 120 mg PO DAILY 04/18/19 04/18/19 capsule,extended release 12 hr spironolactone 25 mg tablet 25 mg PO DAILY 04/18/19 04/18/19 Previous Rx's Medication Instructions Recorded bumetanide 1 mg tablet 1 mg PO DAILY #0 tabs 09/06/18 torsemide 20 mg tablet 40 mg PO DAILY #0 tabs 09/06/18 Allergies Allergy/AdvReac Type Severity Reaction Status Date / Time hydrocodone [HYDROCODONE] Allergy Severe HIVES Verified 11/01/21 18:41 adhesive tape Allergy Intermediate Verified 11/01/21 18:41 latex Allergy Intermediate Verified 11/01/21 18:41 sulfamethoxazole Allergy Verified 11/01/21 18:41 [From Bactrim] trimethoprim [From Bactrim] Allergy Verified 11/01/21 18:41 levofloxacin [LEVOFLOXACIN] AdvReac Mild STOMACH Verified 11/01/21 18:41 ISSUES miracle liam plant food Allergy anaphylaxis Uncoded 11/01/21 18:41 with contact Review of Systems <Aldair Olmos PA-C - Last Filed: 11/01/21 20:20> Review of Systems Narrative: R.O.S.: General: No fever, chills or fatigue. Cardiovascular: No chest pain or palpitations Respiratory: No S.O.B. HEENT: No congestion, ear pain, rhinorrhea, sore throat or tinnitus Gastrointestinal: No nausea or vomiting Skin: Burst vein of right leg Neurological: Awake, alert and in not apparent distress. No Headaches, changes in vision or other related neurological concerns. Patient History <Aldair Olmos PA-C - Last Filed: 11/01/21 20:20> Medical History (Updated 11/01/21 @ 19:15 by Aldair Olmos PA-C) Cardiomyopathy Congestive heart failure Epilepsy Hypertension IBS (irritable bowel syndrome) Morbid obesity with body mass index (BMI) of 50.0 to 59.9 in adult Nephrolithiasis Obstructive sleep apnea PCOS (polycystic ovarian syndrome) Tachy-beth syndrome Surgical History Pacemaker Family History Father Nephrolithiasis Social History household members: family and children Smoking Status: Never smoker alcohol intake: never Smoking Status: Never smoker alcohol intake frequency: 0-2 drinks per day Substance Use Type: does not use Exam <Aldair Olmos PA-C - Last Filed: 11/01/21 20:20> Narrative Exam Narrative: Physical Exam: ? General: normal appearance, well developed, well nourished, alert, and awake. Not in acute distress. ? Head: Normocephalic, no lesions. Chest: Lungs CTAB, no rales, rhonchi or wheezes. ?? Heart: RRR, no murmurs, rubs or gallops. Eyes: PERRLA, EOM's full, conjunctivae clear. ? Neuro: Physiological, no localizing findings, CN3-12 intact. ?? Extremities: Warm, well perfused, FROM, no deformities, no edema. ?? Skin: Patient has a 5 cm abrasion to the posterior right knee area. The area is very minimal erythema is minimal tenderness and no drainage at this time. PSYCHIATRIC: The mood is good, no blunted affect. Speech is clear. Thought process is linear, thought content is appropriate. The voice is without significant inflection. Initial Vital Signs Initial Vital Signs: Vital Signs Temperature 97 F L 11/01/21 18:38 Pulse Rate 82 11/01/21 18:38 Respiratory Rate 18 11/01/21 18:38 Blood Pressure 158/85 H 11/01/21 18:38 Pulse Oximetry 95 11/01/21 18:38 Oxygen Delivery Method 11/01/21 18:38 <Isa Fox DO - Last Filed: 11/01/21 22:47> Initial Vital Signs Initial Vital Signs: Vital Signs Temperature 97 F L 11/01/21 18:38 Pulse Rate 82 11/01/21 18:38 Respiratory Rate 18 11/01/21 18:38 Blood Pressure 158/85 H 11/01/21 18:38 Pulse Oximetry 95 11/01/21 18:38 Oxygen Delivery Method 11/01/21 18:38 Course <Aldair Olmos PA-C - Last Filed: 11/01/21 20:20> Orders Ordered: Discontinued Medications Bacitracin (Bacitracin Oint 0.9 Gm Pckt) 2 applic TOP NOW ONE Stop: 11/01/21 19:19 Last Admin: 11/01/21 19:24 Dose: 2 applic Documented By: AT Vital Signs Vital signs: Vital Signs - 8 hr 11/01/21 18:38 Temperature 97 F L Pulse Rate 82 Respiratory Rate 18 Blood Pressure 158/85 H Pulse Oximetry 95 Oxygen Delivery Method Room Air <Isa Fox DO - Last Filed: 11/01/21 22:47> Orders Ordered: Discontinued Medications Bacitracin (Bacitracin Oint 0.9 Gm Pckt) 2 applic TOP NOW ONE Stop: 11/01/21 19:19 Last Admin: 11/01/21 19:24 Dose: 2 applic Documented By: AT Vital Signs Vital signs: Vital Signs - 8 hr 11/01/21 18:38 Temperature 97 F L Pulse Rate 82 Respiratory Rate 18 Blood Pressure 158/85 H Pulse Oximetry 95 Oxygen Delivery Method Room Air MDM - Skin/Abscess/Foreign Bdy <Aldair Olmos PA-C - Last Filed: 11/01/21 20:20> MDM Narrative Medical decision making narrative: Patient is a 36-year-old female who presents to the emergency room today with complaint of a burst of some posterior knee area. For physical exam reveals 0.5 cm abrasion to posterior right knee area. NO Visible concerns identified at this time. She is with possible infection to the open area. Topical antibiotic ointment and dressing applied fibers of the deltoid patient instructed on care of the area. Patient advised to return to the emergency room should any emergent concerns arise. The patient agrees with plan. Discharge Plan Departure Patient Disposition: Home Clinical Impression: Abrasion, lower leg, anterior, Abrasion of right leg Instructions: DI for Abrasion Activity Restrictions/Additional Instructions: *You have been diagnosed with [an abrasion to your right posterior leg. Nurse will apply antibiotic and a dressing while you are here in the emergency room. She will also give you supplies to take with the upon discharge. Please apply the dressing as needed and return to the emergency room should any emergent concerns arise.] *What to do: *Please continue to take your regular medications as directed. [ ] New medication prescriptions sent to your pharmacy: [ ] [ ] New medication written as a paper prescription [x] No new medications given *Please follow up with your primary care provider in 2-3 days, call for an appointment. Let them know you were seen in the Emergency Department and that we ask that you be seen in follow up. We will electronically transmit a record of today's note if your PCP is in our system *If you do not have a primary care provider please contact the [facility] Resource line at [phone]. They will ask some questions about your medical history and help get you set up with a doctor in the community. *Return to Emergency Department if you should have any new, worsening or concerning symptoms, such as [fever greater than 101 F, shaking chills, worsening pain, persistent vomiting or other bothersome symptoms] Prescriptions: No Action cetirizine 10 mg Tablet 10 mg PO DAILY sertraline 100 mg tablet 150 mg PO DAILY Label Comments: med list provided lists 2 x 25mg tabs daily. pharmacy fill is for 1.5 tabs of 100mg tab. montelukast 10 mg tablet 10 mg PO DAILY digoxin 125 mcg tablet 125 mcg PO DAILY albuterol sulfate [ProAir HFA] 90 mcg/actuation Hfa Aerosol Inhaler 2 puff Inhalation Q4H PRN (Reason: Shortness Of Breath) Label Comments: not on med list provided. 09/04/18 cholecalciferol (vitamin D3) [Vitamin D3] 5,000 unit Tablet 5,000 unit PO DAILY Label Comments: not listed on medication list provided. 09/04/18 ondansetron 4 mg tablet,disintegrating 4 mg PO Q6H PRN (Reason: Nausea) levetiracetam 500 mg tablet 500 - 1,000 mg PO BID Label Comments: 500mg in AM and 1000mg in PM chlorthalidone 25 mg tablet 12.5 mg PO DAILY lacosamide 200 mg tablet 200 mg PO BID Label Comments: med list provided lists 150mg dose but last pharmacy fill is increase to 200mg potassium chloride 20 mEq Tablet,Er Particles/Crystals 40 meq PO DAILY Qvar RediHaler 80 mcg/actuation Hfa Aerosol Breath Activated 1 puff inhalation BID torsemide 20 mg tablet 40 mg PO DAILY Qty: 0 0RF Rx Instructions: Increase to twice daily for 1 week then go back to once daily thereafter. bumetanide 1 mg tablet 1 mg PO DAILY Qty: 0 0RF Rx Instructions: Take as instructed/prescribed by accounts receivable administrator and as needed for excessive we ight gain fluticasone propionate [Allergy Relief (fluticasone)] 50 mcg/actuation spray,suspension 1 spray NASAL BID diltiazem HCl 120 mg capsule,extended release 24hr 120 mg PO DAILY diltiazem HCl 120 mg capsule,extended release 12 hr 120 mg PO DAILY spironolactone 25 mg tablet 25 mg PO DAILY Referrals: Charo Velásquez MD [Primary Care Provider] - Visit Report Forms: Patient Portal/API <Isa Fox DO - Last Filed: 11/01/21 22:47> Cosign ED Attending Cosignature Attestation: I was immediately available in the department for consultation. Documentation has been reviewed. Patient case was
[2021-11-01] MEDS: BACITRACIN OINT 0.9 GM PCKT 2 APPLIC TOP (19:24)
== END 2021-11-01 19:38 | disposition home or self-care (01) ==
PROVIDERS: Emergency Provider Physician Assistant; PCP Student in an Organized Health Care Education/Training Program
DX: S80.811A Abrasion, right lower leg, initial encounter (principal)
CPT/HCPCS: 99282

== ENCOUNTER → 2021-11-02 16:00 | Outpatient (CLI) | payer OTHER, MEDICAID, SELFPAY ==
[2018-12-14 10:36] VITALS: BMI 48.2
--- NOTE | 2021-11-02 16:06 | DI.US.S_ITS ---
PROCEDURE: US PERIPH VENOUS LOW EXTREM RT INDICATIONS: RULE OUT DVT TECHNIQUE: Real-time imaging, as well as color and pulse Doppler interrogation, were performed of the lower extremity deep veins from the inguinal ligament to the popliteal fossa. COMPARISON: None. FINDINGS: The common femoral, femoral and popliteal veins are normally compressible, and free of intraluminal thrombus. Color and pulse Doppler demonstrate normal phasic intraluminal flow. There is normal augmentation response to distal compression maneuver. IMPRESSION: No DVT in the right lower extremity. Dictated by: Samm Rodriguez M.D. on 11/02/2021 at 16:42 Approved by: Samm Rodriguez M.D. on 11/02/2021 at 16:42
== END ==
PROVIDERS: PCP Student in an Organized Health Care Education/Training Program; Referring Provider Student in an Organized Health Care Education/Training Program; Visit Provider Student in an Organized Health Care Education/Training Program
DX: R22.41 Localized swelling, mass and lump, right lower limb (principal)
CPT/HCPCS: 93971

== ENCOUNTER → 2021-11-11 14:00 | Outpatient (CLI) | payer OTHER, MEDICAID, SELFPAY ==
[2018-12-14 10:36] VITALS: BMI 48.2
--- NOTE | 2021-11-11 14:02 | DIET.OUTPTC ---
Dietary Outpatient Consultation Note Consultation Date: 11/11/2021 Pt in home office, RD in hospital office, pt agrees to Vsee telehealth visit using video conferencing. 36y F attending 4th pre-bariatric visit to qualify for bariatric surgery. 311# (weight stable from 2w ago, -5# total) Usual Day: B (530am): pb toast, sometimes banana c pb L(noon-2pm): smoothie or meal that is high in potassium. Dinner: Orgain plant based protein shake c banana or silvina or berries Interventions: Discussed pts current meal timing and composition. Pt breakfast and dinner reasonable choices to support pre-bariatric progress. Collaborated on ideas for heartier main meal that is high in plant proteins and dietary fiber. Pt enjoys global flavors. Shared recipes for tofu based ground meat substitute, vegan burrito bowls with cauliflower rice, silvina daal, and a variety of indian recipes using shiratake noodles. Pt will try out recipes, modify meal plan and f/u in 2w to assess progress. Electronically Signed by: Rina Leary 11/11/21 14:02 Clinical Dietitian [address] [address]
== END ==
PROVIDERS: PCP Student in an Organized Health Care Education/Training Program; Referring Provider Student in an Organized Health Care Education/Training Program; Visit Provider Student in an Organized Health Care Education/Training Program
DX: Z71.3 Dietary counseling and surveillance (principal)
CPT/HCPCS: 97803

== ENCOUNTER → 2021-11-25 14:05 | Outpatient (CLI) | payer OTHER, MEDICAID, SELFPAY ==
[2018-12-14 10:36] VITALS: BMI 48.2
--- NOTE | 2021-11-25 14:07 | DIET.OUTPTC ---
Dietary Outpatient Consultation Note Consultation Date: 11/25/2021 Pt in her home, RD in hospital office, pt agrees to telehealth video visit using [employer] eliud. Pt attending 5th visit pre-bariatric nutrition visit for gastric sleeve surgery. current weight: 311# weight stable x1mo (-5# total, 11# to go) Pt taking 120mg potassium, 40mg furosemide daily Eating Patterns: B: Orgain shake (140kcals/20g pro) L: one whole avocado or 1 Tbs pb with medium apple with shake D: Orgain shake Pt not doing structured physical activity but is breaking up sedentary time with home chores and vacuuming. Pt has hx high level exercise but feels fatigue and SOB. Pt feeling badly she can't exercise like she used to and feels it contributes to her current weight. Discussed reasonable goals for exercise and importance of not pushing self too hard causing pain or problems. Pt feeling frustrated because she does not eat fast foods, has never eaten a whole pizza or carton ice cream but often is judged by the community and past health care providers. Discussed incorporation of fiber filled foods in addition to meal replacement shakes. Pt open to recipe ideas from last visit. Goal: 1. Pt will go outside daily and walk 5 minutes in one direction and turn around to walk 5 minutes home. F/u in 2w to continue nutrition education and surveillance. Electronically Signed by: Rina Leary 11/25/21 14:07 Clinical Dietitian [address] [address]
== END ==
PROVIDERS: PCP Student in an Organized Health Care Education/Training Program; Referring Provider Student in an Organized Health Care Education/Training Program; Visit Provider Student in an Organized Health Care Education/Training Program
DX: Z71.3 Dietary counseling and surveillance (principal)
CPT/HCPCS: 97803

== ENCOUNTER → 2021-12-23 13:31 | Outpatient (CLI) | payer OTHER, MEDICAID, SELFPAY ==
[2018-12-14 10:36] VITALS: BMI 48.2
--- NOTE | 2021-12-23 13:36 | DIET.OUTPTC ---
Dietary Outpatient Consultation Note Consultation Date: 12/23/2021 Patient in home, RD in hospital office, pt agrees to telehealth video visit using [employer] platform. 36y F attending 6 of 12 prebariatric visit to qualify for bariatric surgery. Pt current weight 312#. Pt continues to consume two protein supplement drinks and one vegetarian meal daily in addition to plenty of water. Pt diagnosed with Influenza A this week, feeling miserable, on prednisone and trying to push fluids. Pt with no intentional physical activity this week. Interventions: 1. Discussed sick care nutrition reccs including low sodium broth, plenty of water and rest. F/u in 2w to continue weight and nutrition monitoring for surgery. Electronically Signed by: Rina Leary 12/23/21 13:36 Clinical Dietitian [address] [address]
== END ==
PROVIDERS: PCP Student in an Organized Health Care Education/Training Program; Referring Provider Student in an Organized Health Care Education/Training Program; Visit Provider Student in an Organized Health Care Education/Training Program
DX: E66.9 Obesity, unspecified (principal); Z71.3 Dietary counseling and surveillance
CPT/HCPCS: 97803

== ENCOUNTER → 2021-12-30 13:26 | Outpatient (CLI) | payer OTHER, MEDICAID, SELFPAY ==
[2018-12-14 10:36] VITALS: BMI 48.2
--- NOTE | 2021-12-30 13:29 | DIET.OUTPTC ---
Dietary Outpatient Consultation Note Consultation Date: 12/30/2021 Patient in home, RD in hospital office, pt agrees to telehealth video visit using [employer] platform. 36y F attending 7th of 12 prebariatric visits. Current weight: 310.4# (-1.6# in 1w, 10.4# to goal for surgery) Pt recovering from Influenza A, still feeling fatigue and eating light meals, but much better than last week. Interventions: 1. Discussed pts surgical menopausal state and ways to support lean body mass. Pt educated on heavy weight bearing exercises and consuming 20 grams protein 30-60 minutes prior to support muscle mass and metabolism. Pt will try using exercise bands after consuming her daily protein drink. telehealth f/u in 2w to continue required visits. Electronically Signed by: Rina Leary 12/30/21 13:29 Clinical Dietitian [address] [address]
== END ==
PROVIDERS: PCP Student in an Organized Health Care Education/Training Program; Referring Provider Student in an Organized Health Care Education/Training Program; Visit Provider Student in an Organized Health Care Education/Training Program
DX: Z71.3 Dietary counseling and surveillance (principal); Z68.42 Body mass index [BMI] 45.0-49.9, adult
CPT/HCPCS: 97803

== ENCOUNTER → 2022-01-13 13:35 | Outpatient (CLI) | payer OTHER, MEDICAID, SELFPAY ==
[2018-12-14 10:36] VITALS: BMI 48.2
--- NOTE | 2022-01-13 13:37 | DIET.OUTPTC ---
Dietary Outpatient Consultation Note Consultation Date: 01/13/2022 Patient in home, RD in hospital office, pt agrees to telehealth video visit using [employer] platform. 36y F attending RD f/u for pre-bariatric visit 10/30. 318# (+8#, feels its water retention and constipation) Pt feels hair is falling out more than usual. Usual Day: B: toast c small amount of butter c banana or apple L: sometimes skips D: LS broth based soups- minestrone, vegetable noodle soups c saltless saltines 50-60oz water to drink or herbal tea and increases by 20 when not retaining water Hasn't had protein drinks x1w 60g per day is goal, pt is likely only getting 1/3 of this without ONS because of plant based diet and poor intake. Interventions: 1. Discussed inclusion of 1/2-1c baked tofu daily with lunch or dinner menu for increased protein intake. F/u in 2w for visit 11/30. Electronically Signed by: Rina Leary 01/13/22 13:37 Clinical Dietitian [address] [id number]
== END ==
PROVIDERS: PCP Student in an Organized Health Care Education/Training Program; Referring Provider Student in an Organized Health Care Education/Training Program; Visit Provider Student in an Organized Health Care Education/Training Program
DX: Z71.3 Dietary counseling and surveillance (principal)
CPT/HCPCS: 97803

== ENCOUNTER → 2022-01-27 14:05 | Outpatient (CLI) | payer OTHER, MEDICAID, SELFPAY ==
[2022-01-14 09:57] VITALS: BMI 48.2
--- NOTE | 2022-01-27 14:08 | DIET.OUTPTC ---
Dietary Outpatient Consultation Note Consultation Date: 01/27/2022 Patient in home, RD in hospital office, pt agrees to telehealth video visit using [employer] platform. 36y F attending RD f/u for pre-bariatric visit 11/30. Pt feeling much better, finally over her influenza and pneumonia sitting in chair and very conversant. Wt: 312# (-6# since two weeks ago) Pt doing well with two small meals and one ONS daily. Discussed some seated strength training to support LBM. Pt going to try exercises over the next two weeks. f/u in 2w to continue monitoring for prebariatric qualifications. Electronically Signed by: Rina Leary 01/27/22 14:08 Clinical Dietitian [address] [address]
== END ==
PROVIDERS: PCP Student in an Organized Health Care Education/Training Program; Referring Provider Student in an Organized Health Care Education/Training Program; Visit Provider Student in an Organized Health Care Education/Training Program
DX: Z01.818 Encounter for other preprocedural examination (principal); Z71.3 Dietary counseling and surveillance
CPT/HCPCS: 97803

== ENCOUNTER → 2022-02-17 13:36 | Outpatient (CLI) | payer OTHER, MEDICAID, SELFPAY ==
[2022-01-14 09:57] VITALS: BMI 48.2
--- NOTE | 2022-02-17 13:38 | DIET.OUTPTC ---
Dietary Outpatient Consultation Note Consultation Date: 02/17/2022 Pt in home, RD in hospital office, pt agrees to telehealth video visit using [employer] platform. Pt attending telehealth visit for 12/30 pre-bariatric visit. Current Weight: 304.6# (4.6# away from weight loss goal for surgery) Pt breathing so much better with no SOB now that diuresed appropriately. Pt drinking adequate water, drinking two protein drinks and one healthy plant-forward meal daily (last night shiiratake ramen with hb eggs, bone broth) Pt able to do small walks with dogs to mailbox and back. Pt very excited she is close to her weight goal and excited for next step in bariatric journey. F/u next week as RD had to reschedule this visit a week late. Electronically Signed by: Rina Leary 02/17/22 13:38 Clinical Dietitian [address] [address]
--- NOTE | 2022-02-24 14:06 | DIET.OUTPTC ---
Dietary Outpatient Consultation Note Consultation Date: 02/24/2022 Pt in home, RD in hospital office, pt agrees to telehealth visit using [employer] platform. 36y F attending telehealth visit for 01/30 pre-bariatric visits. 304# (4# to go until goal weight) Pt continues with two ONS daily and one meal with some added fruit. Pt drinking 64oz daily. Pt with no new weight fluctuations over the past 2w. Pt plans to walk more to try to lose last few pounds to qualify for her surgery! f/u in 2w for last bariatric visit. Electronically Signed by: Rina Leary 02/24/22 14:06 Clinical Dietitian [address] [address]
== END ==
PROVIDERS: PCP Student in an Organized Health Care Education/Training Program; Referring Provider Student in an Organized Health Care Education/Training Program; Visit Provider Student in an Organized Health Care Education/Training Program
DX: Z71.3 Dietary counseling and surveillance (principal)
CPT/HCPCS: 97803

== ENCOUNTER → 2022-02-24 14:02 | Outpatient (CLI) | payer OTHER, MEDICAID, SELFPAY ==
[2022-01-14 09:57] VITALS: BMI 48.2
== END ==
PROVIDERS: PCP Student in an Organized Health Care Education/Training Program; Referring Provider Student in an Organized Health Care Education/Training Program; Visit Provider Student in an Organized Health Care Education/Training Program
DX: Z71.3 Dietary counseling and surveillance (principal)
CPT/HCPCS: 97803

== ENCOUNTER → 2022-03-10 14:04 | Outpatient (CLI) | payer OTHER, MEDICAID, SELFPAY ==
[2022-01-14 09:57] VITALS: BMI 48.2
--- NOTE | 2022-03-10 14:07 | DIET.OUTPTC ---
Dietary Outpatient Consultation Note Consultation Date: 03/10/2022 Pt in home, RD in hospital office, pt agrees to telehealth visit using [employer] platform. 36y F attending telehealth visit for 03/01 pre-bariatric visits, last in series. Pt with covid 19 for past 2w. Pt with residual sx of diarrhea 3+x/d. Current Weight: 286# (14# below goal weight to qualify for surgery) Pt happy she has gone below her goal weight for surgery. She plans to maintain this weight loss until she goes in for her procedure with goal to get to or below 200#. Pt interested in RD f/u post-surgical if insurance allows as she finds the support helpful. Ht: 5'8 Wt: 286# (-30# or 19.5%) BMI: 43.5 (down 4.7 BMI points) RD to send chart notes to PCP [facility] for submission to insurance to approve phase 2 bariatric surgery. Electronically Signed by: Rina Leary 03/10/22 14:07 Clinical Dietitian [address] [address]
== END ==
PROVIDERS: PCP Student in an Organized Health Care Education/Training Program; Referring Provider Student in an Organized Health Care Education/Training Program; Visit Provider Student in an Organized Health Care Education/Training Program
DX: Z71.3 Dietary counseling and surveillance (principal); Z68.41 Body mass index [BMI] 40.0-44.9, adult
CPT/HCPCS: 97803